=== PATIENT | female | born 1965 | race Two or more races ===

== ENCOUNTER → 2021-02-27 08:56 | Outpatient (REF) | payer MEDICAID, SELFPAY ==
--- NOTE | 2021-02-27 09:02 | CA_ITS ---
Transthoracic Echocardiogram Patient (Last, First, Middle): Sapna Juan I Gender: Female Date of : 1965 Age: 56 Procedure Date: 02/27/2021 Procedure Type: Transthoracic Echocardiogram Location: OP Height: 152.4 cm Weight: 66.68 kg BSA: 1.64 m2 Heart Rate: bpm BP: 130 / 80 mmHg Technical Assistance Consultant: DSG Referring MD: Yaz Marie NP Symptoms: acantholytic disorder. htn,cerebral infarction Study Quality: Good ECG Rhythm: Sinus Conclusions: - The left ventricular systolic function is normal. The visually estimated ejection fraction is between 55-60%. - There is mild mitral annular calcification. - No obvious valvular pathology seen on this study. Findings Left Ventricle Normal left ventricular cavity size. There is normal left ventricular wall thickness. The left ventricular systolic function is normal. The visually estimated ejection fraction is between 55-60%. There is no evidence of regional wall motion abnormalities. E/E prime ratio is between 8 and 15 consistent with indeterminate filling pressures. Evidence suggests grade I (mild) diastolic dysfunction. Right Ventricle Normal right ventricular cavity size and systolic function. Atria The left atrium is normal in size. The right atrium is normal in size. Aortic Valve There is a normal trileaflet aortic valve. There is no aortic valve stenosis. There is no aortic valve regurgitation. Mitral Valve There is mild mitral annular calcification. There is trace mitral valve regurgitation. There is no mitral valve stenosis. Pulmonic Valve The pulmonic valve was not well visualized. Tricuspid Valve Normal tricuspid valve structure. There is trace tricuspid valve regurgitation. The pulmonary artery systolic pressure is normal. Great Vessels The aortic annulus, sinuses of valsalva, asc aorta, and aortic arch are normal in size. Venous The inferior vena cava is normal in size and collapses greater than 50% with inspiration. Pericardium/Pleural There is no evidence of pericardial effusion. Prior Study Comparison No prior study available for comparison. Recommendations, Care & Conclusions No obvious valvular pathology seen on this study. Measurements 2D Linear Measurements IVSd: 0.85 0.6-0.9/0.6-1.0 cm LVIDd: 4.21 3.9-5.3/4.2-5.9 cm LVIDd Index: 2.57 2.4-3.2/2.2-3.1 cm/m2 LVIDs: 3.00 2.0-3.6 cm LVPWd: 0.83 0.7-1.1 cm Ao Root: 2.80 2.1-3.5 cm LA Diam: 3.20 2.7-3.8/3.0-4.0 cm LAIDs Index: 1.95 1.5-2.3 cm/m2 LV Mass: 134.37 67-162/88-224 g LV Mass Index: 81.93 43-95/49-115 g/m2 LVOT Diam: 1.80 3.0+(-)1.3 cm 2D Systolic Function EF 4C: 62.00 >55% EF 2C: 50.40 >55% EF BiP: 58.60 >55% Mitral Valve MV Pk E: 0.75 MV PK A: 0.72 MV Decel Time: 242.00 E/A: 1.00 E'Lateral: 7.72 E'Medial: 6.42 E/E' Med: 11.60 E/E' Lat: 9.70 PHT: 71.00 MVA PHT: 3.10 Decel Cidra: 3.08 Aortic Valve AoV Pk Elian: 1.18 AoV Pk Grad: 6.00 LVOT LVOT Pk Elian: 0.98 LVOT Mn Elian: 0.69 LVOT VTI: 0.23 LVOT Pk Grad: 4.00 LVOT Mn Grad: 2.00 LVOT Diam: 1.80 LVOT Area: 2.54 Diastolic Function MV Pk E: 0.75 MV Pk A: 0.72 E/A: 1.00 E'Medial: 6.42 E/E' Med: 11.60 E' Laterial: 7.72 E/E' Lat: 9.70 Tricuspid Valve TR Pk Elian: 2.48 TR Pk Grad: 25.00 RA Press: 3.00 RVSP: 28.00 Great Vessels Aorta Ao Root-2D: 2.80 2.0-3.7 cm Ao Asc: 3.20 2.1-3.4 cm Updated in Other Vendor System with Status of Final London Schultz MD electronically signed on 02/27/2021 12:34:56 PM with status of Final
== END ==
LOC: HO.CARD 08:56
PROVIDERS: PCP Registered Nurse; Visit Provider Registered Nurse
DX: L11.9 Acantholytic disorder, unspecified (principal); E78.5 Hyperlipidemia, unspecified; I10 Essential (primary) hypertension; I63.9 Cerebral infarction, unspecified
CPT/HCPCS: 93306

== ENCOUNTER 2021-11-22 12:43 | Outpatient (REF) | payer MEDICAID, SELFPAY ==
--- NOTE | ~2021-11-22 | MM_ITS ---
EXAMINATION: MM SCREENING DIGITAL BREAST TOMOSYNTHESIS, BILATERAL CLINICAL INFORMATION: Screening. Asymptomatic. The lifetime risk of breast cancer based on the Tyrer-Cuzick Model is 8%. COMPARISON: Mammography: 06/05/2018, 05/26/2017, 05/06/2016 TECHNIQUE: Digital breast tomosynthesis is performed in both the craniocaudal and mediolateral oblique views along with computer-aided detection (CAD). Synthesized 2D images are generated from the tomosynthesis. FINDINGS: The breasts are almost entirely fatty (ACR BI-RADS breast composition Category a). Background stromal markings are stable. No developing density. There are no significant masses, abnormal calcifications, or other abnormalities. The axilla and skin contours are unremarkable. MM/MM tomosynthesis screening BI IMPRESSION: No mammographic evidence of malignancy. ASSESSMENT: BI-RADS 1: Negative RECOMMENDATION: Routine annual mammography screening. This patient's information was entered into a reminder system with a target due date for their next mammogram.
== END 2021-11-22 12:44 | disposition home or self-care (01) ==
LOC: HO.MAMMO 12:43
PROVIDERS: PCP Nurse Practitioner Primary Care; Visit Provider Nurse Practitioner Primary Care
DX: Z12.31 Encounter for screening mammogram for malignant neoplasm of breast (principal)
CPT/HCPCS: 77063; 77067

== ENCOUNTER → 2022-01-17 10:42 | Outpatient (REF) | payer MEDICAID, SELFPAY ==
--- NOTE | 2022-01-17 10:46 | HM_ITS ---
Patient is a 57-year-old female. INDICATION FOR THE TEST: Tachycardia. REQUESTING PROVIDER: Sandra Currie N.P. FINDINGS: 1. The patient was monitored with event monitor from 01/17/2022, to 02/16/2022, for a total period of 30 days. 2. The presented strip shows sinus bradycardia with heart rate ranging from 38 beats per minute to 53 beats per minute. There are no episodes of tachycardia noted. 3. There were no arrhythmias noted. 4. The patient did not report any events on this study. CONCLUSION: Event monitor is remarkable for: 1. Sinus bradycardia. 2. No significant arrhythmias. 3. No patient reported events. Rick York MD NRS/MODL / [id number]
== END ==
LOC: HO.CARD 10:42
PROVIDERS: PCP Nurse Practitioner Primary Care; Visit Provider Nurse Practitioner Primary Care
DX: R00.0 Tachycardia, unspecified (principal)
CPT/HCPCS: 93270

== ENCOUNTER 2023-01-09 10:14 | Outpatient (REF) | payer MEDICAID, SELFPAY ==
--- NOTE | ~2023-01-09 | MM_ITS ---
EXAMINATION: MM SCREENING DIGITAL BREAST TOMOSYNTHESIS, BILATERAL CLINICAL INFORMATION: Screening. Asymptomatic. The lifetime risk of breast cancer based on the Tyrer-Cuzick Model is 7.0%. COMPARISON: Mammography: November 22, 2021 and studies dating back to July 12, 2013 TECHNIQUE: Digital breast tomosynthesis is performed in both the craniocaudal and mediolateral oblique views along with computer-aided detection (CAD). Synthesized 2D images are generated from the tomosynthesis. FINDINGS: There are scattered areas of fibroglandular density (ACR BI-RADS breast composition Category b). There are no significant masses, abnormal calcifications, or other abnormalities. MM/MM tomosynthesis screening BI IMPRESSION: No significant changes from prior exam. ASSESSMENT: BI-RADS 1: Negative RECOMMENDATION: Routine annual mammography screening. This patient's information was entered into a reminder system with a target due date for their next mammogram.
== END 2023-01-09 10:15 | disposition home or self-care (01) ==
LOC: HO.MAMMO 10:14
PROVIDERS: PCP Nurse Practitioner Primary Care; Visit Provider Nurse Practitioner Primary Care
DX: Z12.31 Encounter for screening mammogram for malignant neoplasm of breast (principal)
CPT/HCPCS: 77063; 77067

== ENCOUNTER 2023-03-12 09:48 | Outpatient (REF) | payer MEDICAID, SELFPAY | END 2023-03-12 09:49 | disposition home or self-care (01) | LOC: HO.NEURO 09:48 | PROVIDERS: PCP Nurse Practitioner Primary Care; Visit Provider Registered Nurse | DX: M79.2 Neuralgia and neuritis, unspecified (principal) | CPT/HCPCS: 95885; 95911 ==

== ENCOUNTER 2023-07-17 14:01 | Outpatient (AMB) | payer MEDICAID, SELFPAY ==
--- NOTE | 2023-07-17 14:09 | HO.NEPHOV_ITS ---
HPI HPI Comments History of Present Illness Details Middle-aged woman with hypertension. Blood pressure has been difficult to control. She had a Doppler ultrasound which showed possible renal artery stenosis with beaded appearance suggestive of fibromuscular dysplasia. Referred for evaluation of hypertension Renal function has been stable [facility] Medical History (Updated 07/17/23 @ 14:38 by Robbie Marley MD) Constipation Menorrhagia Heartburn Microscopic hematuria Hemorrhoids HTN (hypertension) Anemia GERD (gastroesophageal reflux disease) Vital Signs 07/17/23 14:15 Height 5 ft Weight 145 lb 4 oz BMI 28.4 BP 152/82 H Blood Pressure Location Lt brachial Position Sitting Pulse 57 Pulse Source Pulse Oximeter Pulse Oximetry (%) 96 Oxygen Delivery Method Room Air Physical Exam Vital Signs: Last Vital Signs Pulse 57 07/17/23 14:15 BP 152/82 H 07/17/23 14:15 Pulse Ox 96 07/17/23 14:15 Oxygen Delivery Method Room Air 07/17/23 14:15 BMI result Body Mass Index 28.4 Const General: comfortable Nutritional Appearance: well nourished Orientation/consciousness: patient oriented x3 HEENT Head: No normal to inspection Mouth: moist mucous membranes Neck Neck: Yes supple and Yes no JVD Resp Auscultation: clear to auscultation bilaterally, no rales and rub present Cardio Jugular venous distension: no JVD Palpation: no palpable S3 and no palpable S4 Heart sounds: no rubs GI Palpation (GI): Soft to palpation and nontender Percussion: No Fluid wave present General: Yes no CVA tenderness Back/Spine/Pelvis Back: no CVA tenderness Skin General skin exam: no rashes or lesions noted Neuro General: patient oriented x3 Extrem General: Yes no pedal edema and No clubbing Results Reviewed Results Reviewed: Renal function was normal Assessment & Plan Assessment & Plan (1) HTN (hypertension): Code(s): I10 - Essential (primary) hypertension (2) Renal artery stenosis: Code(s): I70.1 - Atherosclerosis of renal artery Plan Middle-aged woman with hypertension. Renal function stable. Doppler ultrasonogram revealed a possible renal artery stenosis with beaded appearance. This raises the suspicion for fibromuscular dysplasia. Plan Blood pressure is suboptimal. I will switch lisinopril 40 mg to lisinopril HCTZ 20/12.51 a day and titrate dose as needed. Keep her on a low-sodium diet. I will refer to intervention Radiology for renal angiogram with possible angioplasty. Orders: Referrals Interventional Radiology Referral I70.1 - Atherosclerosis of renal artery Medications: New lisinopril-hydrochlorothiazide 20-12.5 mg 1 tab PO DAILY 30 tabs 3RF Coding Level of Care Code New Pt Level 4 (44161) Diagnoses HTN (hypertension) I10 Renal artery stenosis I70.1
[2023-07-17 14:15] VITALS: BP 152/82; PULSE 57; O2SAT 96; BMI 28.4
== END 2023-07-17 14:35 | disposition home or self-care (01) ==
PROVIDERS: PCP Nurse Practitioner Primary Care; Visit Provider Internal Medicine Hypertension Specialist
DX: I10 Essential (primary) hypertension (principal); I70.1 Atherosclerosis of renal artery
CPT/HCPCS: 99203

== ENCOUNTER → 2023-07-17 14:01 | Outpatient (BNVA) | payer MEDICAID, SELFPAY | PROVIDERS: PCP Nurse Practitioner Primary Care; Visit Provider Internal Medicine Hypertension Specialist | DX: I70.1 Atherosclerosis of renal artery (principal); I10 Essential (primary) hypertension | CPT/HCPCS: 99202 ==

== ENCOUNTER 2023-07-22 12:39 | Outpatient (REF) | payer MEDICAID, SELFPAY ==
[2023-07-22 13:19] LABS: MANUAL DIFF FLAG NO
[2023-07-22 13:51] LABS: Basophils Percent Auto 0.3 % (0-2); Eosinophils Absolute Auto 0.2 X10*3/uL (0.0-0.4); Eosinophils Percent Auto 2.9 % (0-4); Hematocrit 42.7 % (37.0-47.0); Hemoglobin 13.7 g/dl (12.0-16.0); Imm Gran Abs Auto 0.02 X10*3/uL (0.00-0.03); Imm Gran Pct Auto 0.3 % (0.0-0.4); Lymphocytes Absolute Auto 2.3 X10*3/uL (1.2-4.9); Lymphocytes Percent Auto 37.9 % (20-40); Mean Corpuscular HGB Conc 32.1 g/dl (31.0-35.0); Mean Corpuscular Hemoglobin 27.2 pg (27.0-33.0); Mean Corpuscular Volume 84.9 fL (80.0-98.0); Mean Platelet Volume 11.9 fL (9.4-12.3); Monocytes Absolute Auto 0.4 X10*3/uL (0.1-1.2); Monocytes Percent Auto 6.2 % (2-11); Neutrophils Absolute Auto 3.1 x10*3/uL (2.0-8.3); Neutrophils Percent Auto 52.4 % (45-73); Platelet Count 250 X10*3/uL (160-400); Red Blood Count 5.03 X10*6/uL (4.20-5.50); Red Cell Distribution Width 12.9 % (11.0-16.0); White Blood Count 5.9 X10*3/uL (4.8-10.8)
[2023-07-22 14:47] LABS: TSH reflex Free T4 2.26 uIU/mL (0.32-4.0)
[2023-07-22 14:54] LABS: Vitamin B12 398 pg/mL (200-900)
== END 2023-07-22 12:40 | disposition home or self-care (01) ==
LOC: HO.HHCL 12:39
PROVIDERS: Visit Provider Nurse Practitioner Primary Care
DX: M79.2 Neuralgia and neuritis, unspecified (principal); E53.8 Deficiency of other specified B group vitamins
CPT/HCPCS: 36415; 82607; 84443; 85025

== ENCOUNTER 2023-08-04 16:27 | Outpatient (REF) | payer MEDICAID, SELFPAY ==
[2023-08-08 03:28] LABS: HPV mRNA E6/E7 rflx Not Detected (Not Detected)
== END 2023-08-04 16:28 | disposition home or self-care (01) ==
LOC: HO.HHCLNP 16:27
PROVIDERS: Visit Provider Advanced Practice Midwife
DX: Z12.4 Encounter for screening for malignant neoplasm of cervix (principal); Z11.51 Encounter for screening for human papillomavirus (HPV)
CPT/HCPCS: 87624; 88142

== ENCOUNTER 2023-08-21 13:09 | Outpatient (AMB) | payer MEDICAID, SELFPAY ==
[2023-08-21 13:16] VITALS: BP 115/76; PULSE 57; O2SAT 100; BMI 28.3
--- NOTE | 2023-08-21 13:16 | HO.NEPHOV_ITS ---
HPI HPI Comments History of Present Illness Details Middle-aged woman with hypertension. Blood pressure has been difficult to control. She had a Doppler ultrasound which showed possible renal artery stenosis with beaded appearance suggestive of fibromuscular dysplasia. Referred for evaluation of hypertension Renal function has been stable BP better controlled after adding HCTZ [facility] Medical History Constipation Menorrhagia Heartburn Microscopic hematuria Hemorrhoids HTN (hypertension) Anemia GERD (gastroesophageal reflux disease) Vital Signs 08/21/23 13:16 Height 5 ft Weight 145 lb BMI 28.3 BP 115/76 Blood Pressure Location Lt brachial Position Sitting Pulse 57 Pulse Source Pulse Oximeter Pulse Oximetry (%) 100 Oxygen Delivery Method Room Air Physical Exam Vital Signs: Last Vital Signs Pulse 57 08/21/23 13:16 BP 115/76 08/21/23 13:16 Pulse Ox 100 08/21/23 13:16 Oxygen Delivery Method Room Air 08/21/23 13:16 BMI result Body Mass Index 28.3 Assessment & Plan Assessment & Plan (1) HTN (hypertension): Code(s): I10 - Essential (primary) hypertension (2) Renal artery stenosis: Code(s): I70.1 - Atherosclerosis of renal artery Plan Middle-aged woman with hypertension. Renal function stable. Doppler ultrasonogram revealed a possible renal artery stenosis with beaded appearance. This raises the suspicion for fibromuscular dysplasia. Plan Blood pressure is well controlled I will KEEP lisinopril HCTZ 27/08.51 a day Keep her on a low-sodium diet. I will re-refer to intervention Radiology for renal angiogram with possible angioplasty. Orders: Orders Electrolytes Today I10 - Essential (primary) hypertension Calcium Today I10 - Essential (primary) hypertension Blood Urea Nitrogen Today I10 - Essential (primary) hypertension Creatinine Today I10 - Essential (primary) hypertension Referrals Interventional Radiology Referral I70.1 - Atherosclerosis of renal artery Coding Level of Care Code Est Pt Level 4 (07358) Diagnoses HTN (hypertension) I10 Renal artery stenosis I70.1 Results Reviewed Nephrology Results: Hgb 13.7 g/dl (12.0-16.0) 07/22/23 WBC 5.9 X10*3/uL (4.8-10.8) 07/22/23 Plt Count 250 X10*3/uL (160-400) 07/22/23
== END 2023-08-21 13:32 | disposition home or self-care (01) ==
PROVIDERS: PCP Nurse Practitioner Primary Care; Visit Provider Internal Medicine Hypertension Specialist
DX: I10 Essential (primary) hypertension (principal); I70.1 Atherosclerosis of renal artery
CPT/HCPCS: 99214

== ENCOUNTER → 2023-08-21 13:09 | Outpatient (BNVA) | payer MEDICAID, SELFPAY | PROVIDERS: PCP Nurse Practitioner Primary Care; Visit Provider Internal Medicine Hypertension Specialist | DX: I10 Essential (primary) hypertension (principal); I70.1 Atherosclerosis of renal artery | CPT/HCPCS: 99212 ==

== ENCOUNTER 2023-09-18 12:42 | Outpatient (REF) | payer MEDICAID, SELFPAY ==
--- NOTE | ~2023-09-18 | MM_ITS ---
EXAMINATION: BONE DENSITOMETRY CLINICAL INDICATION: Screening. COMPARISON: This is the patient's baseline examination. TECHNIQUE: Using a [employer] DXA System (software version: 13.1) manufactured by [employer], dual-energy x-ray absorptiometry was performed of the lumbar spine and left hip. The images are of good technical quality. Summary results are attached. FINDINGS: LEFT FEMUR, NECK: BMD 0.779 g/cm2, Z-score -0.8, T-score -1.9, osteopenia. LEFT FEMUR, TOTAL: BMD 0.952 g/cm2, Z-score 0.3, T-score -0.4, normal. AP SPINE L1-L4: BMD 1.247 g/cm2, Z-score 1.5, T-score 0.6, normal. IDENTIFIED RISK FACTORS: Menopause, history of fracture (adult), height loss, family history (parent hip fracture). HISTORY OF FRACTURE: Wrist. MEDICATIONS: None listed. MM/XR DEXA axial skeleton IMPRESSION: 1. DIAGNOSIS: Osteopenia based on the lowest T-score value of -1.9 in the femoral neck applying World Health Organization criteria. 2. 10-YEAR FRACTURE RISK PREDICTION, FRAX: Major osteoporotic fracture (clinical spine, forearm, hip or shoulder) 15.5%. Hip fracture 1.0%. 3. Treatment Recommendations: NOF guidelines recommend consideration for treatment in postmenopausal women and men age 50 and older presenting with the following: -A hip or vertebral (clinical or morphometric) fracture. -T-score less than or equal to -2.5 at the femoral neck or spine after appropriate evaluation to exclude secondary causes. -Low bone mass at the hip or spine and a 10-year fracture probability by FRAX of greater than or equal to 3% for hip fracture or greater than or equal to 20% for major osteoporotic fracture based on the [place] adapted WHO algorithm. 4. Other Recommendations: All treatment decisions require clinical judgment and consideration of individual patient factors, including patient preferences, comorbidities, previous drug use, risk factors not captured in the FRAX model (e.g. frailty, falls, vitamin D deficiency, increased bone turnover, interval significant decline in bone density) and possible under or overestimation of fracture risk by FRAX. Additional medical evaluation for secondary cause of low bone mineral density may be appropriate. FUTURE SCAN RECOMMENDATION: People with diagnosed cases of osteoporosis or at high risk for fracture should have regular bone mineral density tests. For patients eligible for Medicare, routine testing is allowed once every 2 years. The testing frequency can be increased to one year for patients who have rapidly progressing disease, those who are receiving or discontinuing medical therapy to restore bone mass, or have additional risk factors.
== END 2023-09-18 12:43 | disposition home or self-care (01) ==
LOC: HO.MAMMO 12:42
PROVIDERS: PCP Nurse Practitioner Primary Care; Visit Provider Advanced Practice Midwife
DX: Z13.820 Encounter for screening for osteoporosis (principal); Z78.0 Asymptomatic menopausal state
CPT/HCPCS: 77080

== ENCOUNTER 2023-11-06 13:14 | Outpatient (AMB) | payer MEDICAID, SELFPAY ==
[2023-11-06 13:26] VITALS: BP 160/100; PULSE 57; O2SAT 97; BMI 28.1
--- NOTE | 2023-11-06 13:26 | HO.NEPHOV ---
HPI HPI Comments History of Present Illness Details Middle-aged woman with hypertension. Blood pressure has been difficult to control. She had a Doppler ultrasound which showed possible renal artery stenosis with beaded appearance suggestive of fibromuscular dysplasia. Referred for evaluation of hypertension Renal function has been stable Renal arteries evaluated by Endovascular surgery and NO ADAM was noted [facility] Medical History Constipation Menorrhagia Heartburn Microscopic hematuria Hemorrhoids HTN (hypertension) Anemia GERD (gastroesophageal reflux disease) Social History (Updated 11/06/23 @ 13:30 by Shayla Louis) Alcohol intake: never Use of substances other than those prescribed or required for medical reasons: No Vital Signs 11/06/23 13:26 Height 5 ft Weight 144 lb BMI 28.1 BP 160/100 H Blood Pressure Location Rt brachial Position Sitting Pulse 57 Pulse Source Pulse Oximeter Pulse Oximetry (%) 97 Oxygen Delivery Method Room Air Physical Exam Vital Signs: Last Vital Signs Pulse 57 11/06/23 13:26 BP 160/100 H 11/06/23 13:26 Pulse Ox 97 11/06/23 13:26 Oxygen Delivery Method Room Air 11/06/23 13:26 BMI result Body Mass Index 28.1 Const General: comfortable Nutritional Appearance: well nourished Orientation/consciousness: patient oriented x3 HEENT Head: No normal to inspection Mouth: moist mucous membranes Neck Neck: Yes supple and Yes no JVD Resp Auscultation: clear to auscultation bilaterally, no rales and rub present Cardio Jugular venous distension: no JVD Palpation: no palpable S3 and no palpable S4 Heart sounds: no rubs GI Palpation (GI): Soft to palpation and nontender Percussion: No Fluid wave present General: Yes no CVA tenderness Back/Spine/Pelvis Back: no CVA tenderness Skin General skin exam: no rashes or lesions noted Neuro General: patient oriented x3 Extrem General: Yes no pedal edema and No clubbing Assessment & Plan Assessment & Plan (1) HTN (hypertension): Code(s): I10 - Essential (primary) hypertension (2) Renal artery stenosis: Code(s): I70.1 - Atherosclerosis of renal artery Plan Middle-aged woman with hypertension. Renal function stable. Doppler ultrasonogram revealed a possible renal artery stenosis with beaded appearance. No ADAM by doppler done by ENdovascualr surgery Plan Blood pressure is well controlled Lisinopril 20/25 QD Keep her on a low-sodium diet. Orders: Orders Basic Metabolic Panel 4 Months I10 - Essential (primary) hypertension Medications: New lisinopril-hydrochlorothiazide 20-25 mg 1 tab PO DAILY 30 tabs 5RF Discontinued lisinopril-hydrochlorothiazide 20-12.5 mg Discontinued Reason: Doctor's Order 1 tab PO DAILY 30 tabs 3RF Coding Level of Care Code Est Pt Level 4 (94241) Diagnoses HTN (hypertension) I10 Renal artery stenosis I70.1 Results Reviewed Nephrology Results: Hgb 13.7 g/dl (12.0-16.0) 07/22/23 WBC 5.9 X10*3/uL (4.8-10.8) 07/22/23 Plt Count 250 X10*3/uL (160-400) 07/22/23
== END 2023-11-06 13:48 | disposition home or self-care (01) ==
PROVIDERS: PCP Nurse Practitioner Primary Care; Visit Provider Internal Medicine Hypertension Specialist
DX: I10 Essential (primary) hypertension (principal); I70.1 Atherosclerosis of renal artery
CPT/HCPCS: 99214

== ENCOUNTER → 2023-11-06 13:14 | Outpatient (BNVA) | payer MEDICAID, SELFPAY | PROVIDERS: PCP Nurse Practitioner Primary Care; Visit Provider Internal Medicine Hypertension Specialist | DX: I10 Essential (primary) hypertension (principal); I70.1 Atherosclerosis of renal artery | CPT/HCPCS: 99212 ==

== ENCOUNTER 2024-01-13 10:25 | Outpatient (REF) | payer MEDICAID, SELFPAY ==
--- NOTE | ~2024-01-13 | MM_ITS ---
EXAMINATION: MM SCREENING DIGITAL BREAST TOMOSYNTHESIS, BILATERAL CLINICAL INFORMATION: Screening. Asymptomatic. COMPARISON: Mammography: 01/09/2023, 11/22/2021, and dating back to 2012. TECHNIQUE: Digital breast tomosynthesis is performed in both the craniocaudal and mediolateral oblique views along with computer-aided detection (CAD). Synthesized 2D images are generated from the tomosynthesis. FINDINGS: There are scattered areas of fibroglandular density (ACR BI-RADS breast composition Category b). There are no suspicious masses, suspicious grouped calcifications, or areas of architectural distortion in either breast. The parenchymal pattern is stable from prior exams. No skin or axillary abnormality. MM/MM tomosynthesis screening BI IMPRESSION: No mammographic evidence of malignancy. ASSESSMENT: BI-RADS BI-RADS 1 - Negative RECOMMENDATION: Routine annual mammography screening. 1 year F/U This examination should not preclude the clinical evaluation of a suspicious palpable abnormality. This patient's information was entered into a reminder system with a target due date for their next mammogram.
== END 2024-01-13 10:26 | disposition home or self-care (01) ==
LOC: HO.MAMMO 10:25
PROVIDERS: PCP Nurse Practitioner Primary Care; Visit Provider Nurse Practitioner Primary Care
DX: Z12.31 Encounter for screening mammogram for malignant neoplasm of breast (principal)
CPT/HCPCS: 77063; 77067

== ENCOUNTER → 2024-01-13 11:00 | Outpatient (BNV) | payer MEDICAID, SELFPAY | PROVIDERS: PCP Nurse Practitioner Primary Care; Visit Provider Radiology Diagnostic Radiology | DX: Z12.31 Encounter for screening mammogram for malignant neoplasm of breast (principal) | CPT/HCPCS: 77063; 77067 ==

== ENCOUNTER 2024-02-27 10:45 | Outpatient (REF) | payer MEDICAID, SELFPAY ==
[2024-02-27 12:30] LABS: Anion Gap 10 (12-20); Blood Urea Nitrogen 21 mg/dL (9-16); Calcium 10.6 mg/dL (8.4-10.2); Carbon Dioxide 33 mmol/L (22-29); Chloride 109 mmol/L (96-108); Estimated Glomerular Filt Rate > 60; Glucose Random 88 mg/dL (60-115); Potassium 3.4 mmol/L (3.3-5.1); Sodium 149 mmol/L (135-145)
== END 2024-02-27 10:46 | disposition home or self-care (01) ==
LOC: HO.LAB 10:45
PROVIDERS: PCP Nurse Practitioner Primary Care; Visit Provider Internal Medicine Hypertension Specialist
DX: I10 Essential (primary) hypertension (principal)
CPT/HCPCS: 36415; 80048

== ENCOUNTER 2024-03-08 11:28 | Outpatient (AMB) | payer MEDICAID, SELFPAY ==
[2024-03-08 11:38] VITALS: BP 112/78; PULSE 51; BMI 27.7
--- NOTE | 2024-03-08 11:38 | HO.NEPHOV ---
Vital Signs 03/08/24 11:38 Height 5 ft Weight 142 lb BMI 27.7 BP 112/78 Blood Pressure Location Rt brachial Position Sitting Pulse 51 Pulse Source Pulse Oximeter Intake Visit Reasons: R/S 03/01/2024/ LVM Curriculum Development Manager Required: Yes Curriculum Development Manager Services: Curriculum Development Manager Present Curriculum Development Manager Name: Nico Accompanied by: Self / Same As Patient Allergies No Known Allergies Allergy (Verified 03/08/24 11:41) Medication List - Last Reconciled 03/08/24 by Robbie Marley MD albuterol sulfate 90 mcg/actuation (ProAir HFA) 2 puffs inhalation Q4-6H PRN aspirin 81 mg PO DAILY atenolol 50 mg PO BID ciclopirox 8% topical BEDTIME cyanocobalamin (vitamin B-12) 1,000 mcg PO DAILY ferrous sulfate (FeroSul) 325 mg PO DAILY fluticasone propionate 50 mcg/actuation 1 spray intranasal BID hydroxyzine HCl 25 mg PO QID PRN lanolin [id number].pet-ceres (Minerin Creme topical) appl topical BID lisinopril-hydrochlorothiazide 20-25 mg 1 tab PO DAILY loratadine (Allergy Relief (loratadine)) 10 mg PO DAILY metformin 500 mg PO BID omeprazole 20 mg PO DAILY triamcinolone acetonide 0.1% topical BID HPI Comments Details: Middle-aged woman with hypertension. Blood pressure has been difficult to control. She had a Doppler ultrasound which showed possible renal artery stenosis with beaded appearance suggestive of fibromuscular dysplasia. Referred for evaluation of hypertension Renal function has been stable Renal arteries evaluated by Endovascular surgery and NO ADAM was noted [facility] Medical History Constipation Menorrhagia Heartburn Microscopic hematuria Hemorrhoids HTN (hypertension) Anemia GERD (gastroesophageal reflux disease) Social History Alcohol intake: never Physical Exam Vital Signs: BMI result Body Mass Index 27.7 Results Reviewed Nephrology Results: Hgb 13.7 g/dl (12.0-16.0) 07/22/23 WBC 5.9 X10*3/uL (4.8-10.8) 07/22/23 Plt Count 250 X10*3/uL (160-400) 07/22/23 Sodium 149 mmol/L (135-145) H 02/27/24 Potassium 3.4 mmol/L (3.3-5.1) 02/27/24 Chloride 109 mmol/L (96-108) H 02/27/24 Carbon Dioxide 33 mmol/L (22-29) H 02/27/24 BUN 21 mg/dL (9-16) H 02/27/24 Creatinine 0.77 mg/dL (0.5-1.4) 02/27/24 Calcium 10.6 mg/dL (8.4-10.2) H 02/27/24 Assessment & Plan Assessment & Plan (1) HTN (hypertension): Code(s): I10 - Essential (primary) hypertension Category: Medical (2) Renal artery stenosis: Code(s): I70.1 - Atherosclerosis of renal artery Category: Medical Plan Middle-aged woman with hypertension. Renal function stable. Doppler ultrasonogram revealed a possible renal artery stenosis with beaded appearance. No ADAM by doppler done by Endovascualr surgery -Sep 2023 at [place] [facility] Plan Blood pressure is well controlled Lisinopril 20/25 QD Keep her on a low-sodium diet. No changes Medications: Refilled lisinopril-hydrochlorothiazide 20-25 mg 1 tab PO DAILY 90 tabs 3RF Coding Level of Care Code Est Pt Level 3 (03753) Diagnoses HTN (hypertension) I10 Renal artery stenosis I70.1
== END 2024-03-08 11:50 | disposition home or self-care (01) ==
PROVIDERS: PCP Nurse Practitioner Primary Care; Visit Provider Internal Medicine Hypertension Specialist
DX: I10 Essential (primary) hypertension (principal); I70.1 Atherosclerosis of renal artery
CPT/HCPCS: 99213

== ENCOUNTER → 2024-03-08 11:28 | Outpatient (BNVA) | payer MEDICAID, SELFPAY | PROVIDERS: PCP Nurse Practitioner Primary Care; Visit Provider Internal Medicine Hypertension Specialist | DX: I10 Essential (primary) hypertension (principal); I70.1 Atherosclerosis of renal artery | CPT/HCPCS: 99212 ==

== ENCOUNTER 2024-08-30 13:05 | Outpatient (AMB) | payer MEDICAID, SELFPAY ==
[2024-08-30 13:08] VITALS: BP 110/68; PULSE 60; O2SAT 95; BMI 27.7
--- NOTE | 2024-08-30 13:08 | HO.NEPHOV_ITS ---
Vital Signs 08/30/24 13:08 Height 5 ft Weight 142 lb BMI 27.7 BP 110/68 Blood Pressure Location Rt brachial Position Sitting Pulse 60 Pulse Source Pulse Oximeter Pulse Oximetry (%) 95 Oxygen Delivery Method Room Air Intake Visit Reasons: Hypertension/ Conf Curb Setter Helper Required: Yes Curb Setter Helper Name: Chely [id number] Accompanied by: Self / Same As Patient Allergies No Known Allergies Allergy (Verified 08/30/24 13:11) Medication List - Last Reconciled 08/30/24 by Robbie Marley MD albuterol sulfate 90 mcg/actuation (ProAir HFA) 2 puffs inhalation Q4-6H PRN aspirin 81 mg PO DAILY atenolol 50 mg PO BID bimatoprost 0.01% (Lumigan) 1 drp ophthalmic (eye) BEDTIME brimonidine 0.2% 1 drp ophthalmic (eye) BID ciclopirox 8% topical BEDTIME cyanocobalamin (vitamin B-12) 1,000 mcg PO DAILY dorzolamide 2% 1 drp ophthalmic (eye) TID ferrous sulfate (FeroSul) 325 mg PO DAILY fluticasone propionate 50 mcg/actuation 1 spray intranasal BID hydroxyzine HCl 25 mg PO QID PRN lanolin iwjujnb-yh-z.pet-ceres (Minerin Creme topical) appl topical BID lisinopril-hydrochlorothiazide 20-25 mg 1 tab PO DAILY loratadine (Allergy Relief (loratadine)) 10 mg PO DAILY metformin 500 mg PO BID netarsudil 0.02% (Rhopressa) 1 drp ophthalmic (eye) BEDTIME omeprazole 20 mg PO DAILY triamcinolone acetonide 0.1% topical BID HPI Comments Details: Middle-aged woman with hypertension. Blood pressure has been difficult to control. She had a Doppler ultrasound which showed possible renal artery stenosis with beaded appearance suggestive of fibromuscular dysplasia. Referred for evaluation of hypertension Renal function has been stable Renal arteries evaluated by Endovascular surgery and NO ADAM was noted [facility] Medical History Constipation Menorrhagia Heartburn Microscopic hematuria Hemorrhoids HTN (hypertension) Anemia GERD (gastroesophageal reflux disease) Social History Alcohol intake: never Physical Exam Vital Signs: Last Vital Signs Pulse 60 08/30/24 13:08 BP 110/68 08/30/24 13:08 Pulse Ox 95 08/30/24 13:08 Oxygen Delivery Method Room Air 08/30/24 13:08 BMI result Body Mass Index 27.7 Comfortable Neck supple no JVD. Lungs entry equal no rales. Heart S1-S2 heard no gallop or rub. Abdomen soft nontender. Neuro alert awake oriented. No asterixis. Extremities no edema. Results Reviewed Nephrology Results: Hgb 13.7 g/dl (12.0-16.0) 07/22/23 WBC 5.9 X10*3/uL (4.8-10.8) 07/22/23 Plt Count 250 X10*3/uL (160-400) 07/22/23 Sodium 149 mmol/L (135-145) H 02/27/24 Potassium 3.4 mmol/L (3.3-5.1) 02/27/24 Chloride 109 mmol/L (96-108) H 02/27/24 Carbon Dioxide 33 mmol/L (22-29) H 02/27/24 BUN 21 mg/dL (9-16) H 02/27/24 Creatinine 0.77 mg/dL (0.5-1.4) 02/27/24 Calcium 10.6 mg/dL (8.4-10.2) H 02/27/24 Assessment & Plan Assessment & Plan (1) HTN (hypertension): Code(s): I10 - Essential (primary) hypertension Category: Medical (2) Renal artery stenosis: Code(s): I70.1 - Atherosclerosis of renal artery Category: Medical Plan Middle-aged woman with hypertension. Renal function stable. Doppler ultrasonogram revealed a possible renal artery stenosis with beaded appearance. No ADAM by doppler done by Endovascualr surgery -Sep 2023 at [facility] Mild hypernatremia due to free water deficit Plan Blood pressure is well controlled Lisinopril HCT20/25 QD The use of HCTZ should help corect hypernatremia Increase PO Water intake Keep her on a low-sodium diet. No changes Orders: Orders Basic Metabolic Panel Today I10 - Essential (primary) hypertension Medications: New atenolol 50 mg PO BID 180 tabs 0RF Refilled lisinopril-hydrochlorothiazide 20-25 mg 1 tab PO DAILY 90 tabs 3RF Coding Level of Care Code Est Pt Level 4 (51663) Diagnoses HTN (hypertension) I10 Renal artery stenosis I70.1
== END 2024-08-30 13:23 | disposition home or self-care (01) ==
PROVIDERS: PCP Nurse Practitioner Primary Care; Visit Provider Internal Medicine Hypertension Specialist
DX: I10 Essential (primary) hypertension (principal); I70.1 Atherosclerosis of renal artery
CPT/HCPCS: 99214

== ENCOUNTER → 2024-08-30 13:05 | Outpatient (BNVA) | payer MEDICAID, SELFPAY | PROVIDERS: PCP Nurse Practitioner Primary Care; Visit Provider Internal Medicine Hypertension Specialist | DX: I10 Essential (primary) hypertension (principal); I70.1 Atherosclerosis of renal artery | CPT/HCPCS: 99212 ==

== ENCOUNTER 2024-09-17 11:03 | Outpatient (REF) | payer MEDICAID, SELFPAY ==
[2024-09-17 13:12] LABS: Anion Gap 10 (12-20); Blood Urea Nitrogen 16 mg/dL (9-16); Calcium 10.1 mg/dL (8.4-10.2); Carbon Dioxide 32 mmol/L (22-29); Chloride 109 mmol/L (96-108); Estimated Glomerular Filt Rate > 60; Glucose Random 118 mg/dL (60-115); Potassium 3.5 mmol/L (3.3-5.1); Sodium 147 mmol/L (135-145)
[2024-09-17 13:38] LABS: Anion Gap 10 (12-20); Blood Urea Nitrogen 15 mg/dL (9-16); Calcium 9.7 mg/dL (8.4-10.2); Carbon Dioxide 32 mmol/L (22-29); Chloride 110 mmol/L (96-108); Estimated Glomerular Filt Rate > 60; Glucose Random 114 mg/dL (60-115); Potassium 3.5 mmol/L (3.3-5.1); Sodium 147 mmol/L (135-145)
[2024-09-17 13:43] LABS: Creatinine Urine 81.38 mg/dL; Microalbum/Creatinine Ratio Ur 13.5 ug/mg cr (<30)
[2024-09-17 13:51] LABS: Parathyroid Hormone Intact 120.8 pg/mL (8.7-77.1)
== END 2024-09-17 11:04 | disposition home or self-care (01) ==
LOC: HO.HHCL 11:03
PROVIDERS: Nurse Practitioner Primary Care; Visit Provider Internal Medicine Hypertension Specialist
DX: I10 Essential (primary) hypertension (principal); E21.3 Hyperparathyroidism, unspecified; E11.59 Type 2 diabetes mellitus with other circulatory complications; I15.2 Hypertension secondary to endocrine disorders; E87.0 Hyperosmolality and hypernatremia
CPT/HCPCS: 36415; 80048; 82043; 82570; 83970

== ENCOUNTER 2024-12-30 11:45 | Outpatient (AMB) | payer MEDICAID, SELFPAY ==
[2024-12-30 11:52] VITALS: BP 122/82; PULSE 71; O2SAT 97; BMI 27.6
--- NOTE | 2024-12-30 11:52 | HO.NEPHOV ---
Vital Signs 12/30/24 11:52 Height 5 ft Weight 141 lb 8 oz BMI 27.6 BP 122/82 Blood Pressure Location Rt brachial Position Sitting Pulse 71 Pulse Source Pulse Oximeter Pulse Oximetry (%) 97 Oxygen Delivery Method Room Air Intake Visit Reasons: Hypertension/ Conf Management Services Technician Required: Yes Management Services Technician Language: Hand Ii Cutter Name: Vidya([id number]) Allergies No Known Allergies Allergy (Verified 12/30/24 11:54) Medication List - Last Reconciled 12/30/24 by Robbie Marley MD albuterol sulfate 90 mcg/actuation (ProAir HFA) 2 puffs inhalation Q4-6H PRN aspirin 81 mg PO DAILY atenolol 50 mg PO BID bimatoprost 0.01% (Lumigan) 1 drp ophthalmic (eye) BEDTIME brimonidine 0.2% 1 drp ophthalmic (eye) BID ciclopirox 8% topical BEDTIME cyanocobalamin (vitamin B-12) 1,000 mcg PO DAILY dorzolamide 2% 1 drp ophthalmic (eye) TID ferrous sulfate (FeroSul) 325 mg PO DAILY fluticasone propionate 50 mcg/actuation 1 spray intranasal BID hydroxyzine HCl 25 mg PO QID PRN lanolin ysovjaj-sp-t.pet-ceres (Minerin Creme topical) appl topical BID lisinopril-hydrochlorothiazide 20-25 mg 1 tab PO DAILY loratadine (Allergy Relief (loratadine)) 10 mg PO DAILY metformin 500 mg PO BID netarsudil 0.02% (Rhopressa) 1 drp ophthalmic (eye) BEDTIME omeprazole 20 mg PO DAILY triamcinolone acetonide 0.1% topical BID HPI Comments Details: Middle-aged woman with hypertension. Blood pressure has been difficult to control. She had a Doppler ultrasound which showed possible renal artery stenosis with beaded appearance suggestive of fibromuscular dysplasia. Referred for evaluation of hypertension Renal function has been stable Renal arteries evaluated by Endovascular surgery and NO ADAM was noted 12/30/24 Overall doing well. Home BP was low this and did not take meds. [facility] Medical History Constipation Menorrhagia Heartburn Microscopic hematuria Hemorrhoids HTN (hypertension) Anemia GERD (gastroesophageal reflux disease) Social History Alcohol intake: never Physical Exam Vital Signs: Last Vital Signs Pulse 71 12/30/24 11:52 BP 122/82 12/30/24 11:52 Pulse Ox 97 12/30/24 11:52 Oxygen Delivery Method Room Air 12/30/24 11:52 BMI result Body Mass Index 27.6 Comfortable Neck supple no JVD. Lungs entry equal no rales. Heart S1-S2 heard no gallop or rub. Abdomen soft nontender. Neuro alert awake oriented. No asterixis. Extremities no edema. Results Reviewed Nephrology Results: Sodium 147 mmol/L (135-145) H 09/17/24 Potassium 3.5 mmol/L (3.3-5.1) 09/17/24 Chloride 110 mmol/L (96-108) H 09/17/24 Carbon Dioxide 32 mmol/L (22-29) H 09/17/24 BUN 15 mg/dL (9-16) 09/17/24 Creatinine 0.83 mg/dL (0.5-1.4) 09/17/24 Calcium 9.7 mg/dL (8.4-10.2) 09/17/24 PTH Intact 120.8 pg/mL (8.7-77.1) H 09/17/24 Urine Creatinine 81.38 mg/dL 09/17/24 Assessment & Plan Assessment & Plan (1) HTN (hypertension): Code(s): I10 - Essential (primary) hypertension Category: Medical (2) Renal artery stenosis: Code(s): I70.1 - Atherosclerosis of renal artery Category: Medical (3) Hypernatremia: Code(s): E87.0 - Hyperosmolality and hypernatremia Category: Medical Plan Middle-aged woman with hypertension. Renal function stable. Doppler ultrasonogram revealed a possible renal artery stenosis with beaded appearance. No ADAM by doppler done by Endovascular surgery -Sep 2023 at [facility] Mild hypernatremia due to free water deficit Plan Blood pressure is low, I will STOP Lisinopril -HCT 20/25 Start HCTZ 25 mg daily The use of HCTZ should help corect hypernatremia Increase PO Water intake Keep her on a low-sodium diet. Orders: Orders Basic Metabolic Panel Today E87.0 - Hyperosmolality and hypernatremia, I10 - Essential (primary) hypertension, I70.1 - Atherosclerosis of renal artery UA and rflx microscopic Today E87.0 - Hyperosmolality and hypernatremia, I10 - Essential (primary) hypertension, I70.1 - Atherosclerosis of renal artery Osmolality Urine Today E87.0 - Hyperosmolality and hypernatremia, I10 - Essential (primary) hypertension, I70.1 - Atherosclerosis of renal artery Medications: New hydrochlorothiazide 25 mg PO DAILY 90 tabs 1RF Discontinued lisinopril-hydrochlorothiazide 20-25 mg Discontinued Reason: Doctor's Order 1 tab PO DAILY 90 tabs 3RF Coding Level of Care Code Est Pt Level 4 (92683) Diagnoses HTN (hypertension) I10 Renal artery stenosis I70.1 Hypernatremia E87.0
--- OUTSIDE RECORDS SUMMARY | 2024-12-30 14:08 | XMS_ITS | Encounter Summary ---
Author Organization [employer] Address [address] [facility] [address] [place] [address] Care Team Providers Care Clinic Clerk Name Role Phone Sandra Currie Primary Care Provider [phone] Encounter Details Date Type Department Care Team (Late st Contact Info) Description 10/03/2022 Orders Only [facility] MED & PEDS [address] [place] [address] Susannah Burnett LPN Social History Tobacco Use Types Packs/Day Years Used Date Smoking Tobacco: Never Assessed Comments Unknown Sex and Gender Information Value Date Recorded Sex Assigned at Female 07/08/2022 10:16 AM EDT Legal Sex Female 10:16 AM EDT Gender Identity Female 07/08/2022 10:16 AM EDT Sexual Orientation Straight 07/08/2022 10 :16 AM EDT documented as of this encounter Plan of Treatment Upcoming Encounters Date Type Department Care Team (Late st Contact Info) Description 03/22/2025 2:00 PM EDT Office Visit [facility] OPTOMETRY [address] [place] [address] Sravan, Susan, OD [address] [place] [address] 03/28/2025 11:15 AM EDT Office Visit [facility] MEDICINE [address] [place] [address] Sandra Currie ANP [address] [place] [address] documented as of this encounter Visit Diagnoses Not on filedocumented in this encounter Care Teams Clinic Clerk Relationship Specialty Start Date End Date Sandra Currie ANP [address] [place] [phone] PCP - General Family Medicine 04/30/21 documented as of this encounter
--- OUTSIDE RECORDS SUMMARY | 2024-12-30 14:08 | XMS_ITS | Encounter Summary ---
Author Organization [employer] Address [address] [facility] [address] [facility] [address] [place] [address] Care Team Providers Care Master Naval Parachutist Name Role Phone Sandra Currie Primary Care Provider [phone] Encounter Details Date Type Department Care Team (Late st Contact Info) Description 02/10/2024 Abstract [facility] MEDICINE [address] [place], [place] [phone] Sandra Currie ANP [address] [place], [place] [phone] Social History Tobacco Use Types Packs/Day Years Used Date Smoking Tobacco: Never Passive Smoke Exposure: Never Smokeless Tobacco: Never Alcohol Use Standard Drinks/Week Comments Never 0 (1 standard drink = 0.6 oz pur e alcohol) Housing Stability Answer Date Recorded What is your housing situation today? I do not have housing (Staying with others, in a hotel, in a care home, living outside on the street, on a beach, in a car, or in a park 11/17/[address] you li ve. Do you have problems with any of the following? None of the above 11/17/2023 Food Insecurity Answer Date Recorded Within the past 12 months, y ou worried that your food would run out before you got money to buy more: Sometimes True 2023 Within the past 12 months,th e food you bought just didn't last and you didn't have enough money to get more: Sometimes True 11/17/2023 Transportation Answer Date Recorded In the past 12 months, has l ack of transportation kept you from medical appts, meetings, work or from getting things needed for daily living? No 06/23/2023 Utilities Answer Date Recorded In the past 12 months, has t he electric, gas, oil or water [employer] threatened to shut off services in your home? No 06/23/2023 Depression Answer Date Recorded Patient Health Questionnaire-2 Score 0 01/30/2023 Comments No Sex and Gender Information Value Date Recorded Sex Assigned at Female 07/08/2022 10:16 AM EDT Legal Sex Female 10:16 AM EDT Gender Identity Female 07/08/2022 10:16 AM EDT Sexual Orientation Straight 07/08/2022 10 :16 AM EDT documented as of this encounter Plan of Treatment Upcoming Encounters Date Type Department Care Team (Late st Contact Info) Description 03/22/2025 2:00 PM EDT Office Visit [facility] OPTOMETRY [address] [place] [address] Sravan, Susan, OD [address] [place] [address] 03/28/2025 11:15 AM EDT Office Visit [facility] MEDICINE [address] [place] [address] Sandra Currie ANP [address] [place] [address] documented as of this encounter Procedures Procedure Name Priority Date/Time Associated Diagnosis Comments MAMMOGRAPHY Routine 02/10/2024 10:56 AM EDT documented in this encounter Results * Mammography (02/10/2024 10:56 AM EDT) Mammogram BIRADS 1 Normal, Abnormal, BIRADS 1 , BIRADS 2 Comment:1 year follow up Anatomical Region Laterality Modality Other us Historical Provider HEALTH MAINTENANCE Final Result documented in this encounter Visit Diagnoses Not on filedocumented in this encounter Care Teams Master Naval Parachutist Relationship Specialty Start Date End Date Sandra Currie ANP [address] [place] [address] PCP - General Family Medicine 04/30/21 documented as of this encounter
--- OUTSIDE RECORDS SUMMARY | 2024-12-30 14:08 | XMS_ITS | Clinical Summary ---
Author Organization [employer] Address [address] [facility] [address] [place] [address] Care Team Providers Care Sexual Assault Nurse Name Role Phone Sandra Currie Primary Care Provider Allergies No known active allergies Medications ergocalciferol (Vitamin D-2) 1.25 MG (09470 UT) capsule take 1 capsule by oral route every week 022 Active cyanocobalamin (Vitamin B-12) 1000 MCG tabletIndications :Vitamin deficiency TAKE 1 TABLET BY MOUTH EVERY DAY 90 tablet 1 023 Active Rhopressa 0.02 % solution INSTILL 1 DROP IN BOTH EYES AT BEDTIME 023 Active dorzolamide-timol ol (Cosopt) 2-0.5 % ophthalmic solution INSTILL 1 DROP IN EACH EYE EVERY 12 HOURS 023 Active brimonidine (AlphaGAN P) 0.2 % ophthalmic solution INSTILL 1 DROP IN BOTH EYES EVERY 12 HOURS 023 Active olopatadine (Pataday) 0.2 % ophthalmic solution Administer 1 drop into affected eye(s) in the morning. 2.5 mL 024 Active hydrOXYzine HCl (Atarax) 25 MG tablet TAKE 1 TABLET BY MOUTH FOUR TIMES DAILY NEEDED FOR ANXIETY 120 tablet 1 024 Active lisinopril-hydroC HLOROthiazide 20-25 MG tablet Take 1 tablet by mouth Once per day. 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 60 each 024 Active Alcohol Swabs padsIndications:T ype 2 diabetes mellitus with hyperglycemia, unspecified whether corporate planning manager insulin use ([facility]) 1 each if needed (to clean skin). 100 each Active aspirin 81 MG chewable tabletIndications :Healthcare maintenance Take 1 tablet daily 90 tablet 3 024 Active atenolol (Tenormin) 50 MG tabletIndications :Hypertension associated with diabetes ([facility]) TAKE 1 TABLET BY MOUTH TWICE DAILY 180 tablet 1 024 Active omeprazole (PriLOSEC) [address] capsule TAKE 1 CAPSULE BY MOUTH EVERY DAY BEFORE A MEAL 90 capsule 1 024 Active Skin Protectants, Misc. (Minerin Creme) creamIndications: Dry skin Apply to skin as needed twice daily 454 g 2 025 Active nortriptyline (Pamelor) 25 MG capsuleIndication s:Neuropathic pain of lower extremity Take 1 capsule (25 mg) by mouth at bedtime. 90 capsule 025 2025 Active fluticasone (Flonase) 50 MCG/ACT nasal sprayIndications: Non-seasonal allergic rhinitis due to other allergic trigger 1 spray into each nostril as needed once daily. Shake gently. Before first use, prime pump. After use, clean tip and replace cap. 48 g 025 Active loratadine (Claritin) 10 MG tabletIndications :Allergic conjunctivitis of both eyes TAKE 1 TABLET BY MOUTH EVERY DAY IN THE MORNING 90 tablet 1 025 Active atorvastatin (Lipitor) 40 MG tabletIndications :Hypertension associated with diabetes ([facility]) TAKE 1 TABLET BY MOUTH ONCE DAILY 90 tablet 3 025 Active Ferrous Sulfate (iron) 325 (65 Fe) MG tabletIndications :Iron deficiency anemia, unspecified iron deficiency anemia type TAKE 1 TABLET BY MOUTH EVERY DAY WITH ORANGE JUICE OR VITAMINA C 90 tablet 3 025 Active metFORMIN XR (Glucophage-XR) 500 MG 24 hr tabletIndications :Type 2 diabetes mellitus with hyperglycemia, unspecified whether half-way insulin use ([facility]) TAKE 1 TABLET BY MOUTH TWICE DAILY WITH FOOD 180 tablet 3 025 Active ferrous sulfate (FeroSul) 325 (65 Fe) MG tabletIndications :Iron deficiency anemia, unspecified iron deficiency anemia type Take 1 tab daily with OJ or vitamin C 90 tablet 3 024 2024 Discontinued metFORMIN XR (Glucophage-XR) 500 MG 24 hr tabletIndications :Type 2 diabetes mellitus with hyperglycemia, unspecified whether half-way insulin use ([facility]) TAKE 1 TABLET BY MOUTH TWICE DAILY WITH FOOD 180 tablet 3 024 2024 Discontinued atorvastatin (Lipitor) 40 MG tabletIndications :Hypertension associated with diabetes ([facility]) Take 1 tablet (40 mg) by mouth Once per day. 90 tablet 3 024 2024 Discontinued loratadine (Claritin) 10 MG tabletIndications :Allergic conjunctivitis of both eyes TAKE 1 TABLET BY MOUTH EVERY MORNING 90 tablet 1 024 2024 Discontinued nortriptyline (Pamelor) 25 MG capsuleIndication s:Neuropathic pain of lower extremity Take 1 capsule (25 mg) by mouth at bedtime. 90 capsule 025 2024 Discontinued(R eorder (will not trigger notification to Pharmacy)) fluticasone (Flonase) 50 MCG/ACT nasal sprayIndications: Non-seasonal allergic rhinitis due to other allergic trigger 1 spray into each nostril as needed once daily. Shake gently. Before first use, prime pump. After use, clean tip and replace cap. 48 g 025 2024 Discontinued(R eorder (will not trigger notification to Pharmacy)) Active Problems Problem Noted Date Diagnosed Date Advanced open-angle glaucoma, severe stage 12/14 Overview (12/15/2023): w/ sx poor vision and visual field defects. She is followed closely by Dr. Edge and is on multiple medications. Eye exam [facility] 06/2023, no retinopathy. Hypertension associated with diabetes 12/15/2023 Peripheral axonal neuropathy 07/22/2023 Overview (07/22/2023): EMG 03/12/23 Myopia with presbyopia of both eyes 07/18/2023 Imbalance due to old stroke 01/30/2023 Overview (01/30/2023): subtle chronic bilateral cerebellar lacunar infarcts as seen on MRI 10/19/2020 to which her imbalance was attributed History of lacunar cerebrovascular accident 01/07 Overview (01/30/2023): subtle chronic bilateral cerebellar lacunar infarcts as seen on MRI 10/19/2020 On statin, ASA Optimize DM & HTN Fatigue 01/29/2023 Mass of oral cavity 01/29/2023 Tinnitus 01/29/2023 Hyperparathyroidism 01/23/2023 Kidney stone 01/23/2023 Neuropathic pain of lower extremity 10/25/2022 Assessment & Plan (10/25/2022 5:01 PM EST): EMG ordered to RO Periferal neuropathy or lumbar radiculopathy. If negative possible referral to neurology? 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 and that her blood pressure was fine, her Lisinopril was recently increased Plan: I asked pt to start checking BP at home and come with PCPs RN to review log book and discuss adjusting regimen if BP persistently elevated Follow up with PCP's RN in 1 week and with PCP within 2-4 weeks Microscopic hematuria 05/20/2012 Anemia 05/20/2012 Hemorrhoids 05/20/2012 Resolved Problems Problem Noted Date Diagnosed Date Resolved Date Acute conjunctivitis of both eyes 07/03/2023 03/18/2024 Assessment & Plan (07/03/2023 11:10 AM EDT): Pt with c/o new onset of bilateral eye crustiness and mild discharge as well as redness for several days, no other associated symptoms Etiology, bacterial vs allergic. On today s exam there is conjunctival injection, but no active discharge although pt reports intermittent discharge and morning crustiness. Plan:Erythromycin ointment. Pt already on antihistaminic. Asked pt to come back if no improvement or worsening. 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 Date Type Department Care Team Description 12/27/2024 Refill [facility] MEDICINE [address] [place] [phone] Sandra Currie ANP Allergic conjunctivitis of both eyes; Hypertension associated with diabetes ([facility]); Iron deficiency anemia, unspecified iron deficiency anemia type; Type 2 diabetes mellitus with hyperglycemia, unspecified whether corporate planning manager insulin use ([facility]) 12/14/2024 Telephone [facility] MEDICINE [address] [place], [place] [phone] Sandra Currie ANP March recall 12/10/2024 Refill [facility] PEDS [address] [place], [place] [phone] Sandra Currie ANP Neuropathic pain of lower extremity; Non-seasonal allergic rhinitis due to other allergic trigger 12/06/2024 Telephone [facility] OPTOMETRY [address] [place], [place] [phone] Susan Hinson, NEMO 11/19/2024 Population Health Risk Score [facility] () Department [address] [place] [phone] Provider, Population Health Generic from Last 3 Months Immunizations Name Administration Dates Next Due INFLUENZA INJECTABLE QUADRIV ALANT CCIIV4 MDCK Multi-dose vial 07/19/2019 Influenza injectable quadriv alent IIV4 with preservative 06/11/2018,09/18/2017,05/31/2016,2014 Influenza injectable quadriv alent preservative free 07/22/2023,07/03/2021 Influenza, IIV3, injectable 07/11/2014, 1 Influenza, Split (incl. ryanne fied surface antigen) 05/27/2013,05/20/2012 Influenza, seasonal, injecta ble, preservative free 09/17/2024 Pneumococcal Conjugate PCV 20 12/15/2023 TD (adult), 2 Lf tetanus tox oid, preservative free, adsorbed 09/02/2002 Tdap 09/17/2024,02/10/2014 Zoster, Recombinant 05/05/2020,07/19/2019 Family History Medical History Relation Name Comments Diabetes Brother Hyperlipidemia Mother Diabetes Sister Thyroid disease Sister Relation Name Status Comments Brother Mother Sister Social History Tobacco Use Types Packs/Day Years Used Date Smoking Tobacco: Never Passive Smoke Exposure: Never Smokeless Tobacco: Never Tobacco Cessation:Counseling Given: Not Answered Alcohol Use Standard Drinks/Week Comments Never 0 (1 standard drink = 0.6 oz pur e alcohol) Depression Answer Date Recorded Patient Health Questionnaire-9 Score 5 09/17/2024 Patient Health Questionnaire-9 Score 5 09/17/2024 Last PHQ-9: Questionnaire Data Not on file 0 09/17/2024 Housing Stability Answer Date Recorded What is your housing situation today? I do not have housing (Staying with others, in a hotel, in a group home, living outside on the street, on [...] t he electric, gas, oil or water company threatened to shut off services in your home? No 06/23/2023 Depression Answer Date Recorded Patient Health Questionnaire-2 Score 1 09/17/2024 Internet Access Answer Date Recorded Internet Access Q1 Yes 05/10/2024 Internet Access Q2 Not on file 05/10/2024 Comments No Sex and Gender Information Value Date Recorded Sex Assigned at Female 07/08/2022 10:16 AM EDT Legal Sex Female 10:16 AM EDT Gender Identity Female 07/08/2022 10:16 AM EDT Sexual Orientation Straight 07/08/2022 10 :16 AM EDT Last Filed Vital Signs Vital Sign Reading Time Taken Comments Blood Pressure 105/64 09/17/2024 11:21 AM EST Pulse 64 09/17/2024 11:21 AM EST Temperature 36.1 ??C (97 ??F) 09/17/2024 11:21 AM EST Respiratory Rate 20 09/17/2024 11:21 AM EST Oxygen Saturation 98% 09/17/2024 11:21 AM EST Inhaled Oxygen Concentration - - Weight 64.9 kg (143 lb) 09/17/2024 11:21 AM EST Height 152.4 cm (5') 09/17/2024 11:21 AM EST Body Mass Index 27.93 09/17/2024 11:21 AM EST Plan of Treatment Upcoming Encounters Date Type Department Care Team (Late st Contact Info) Description 03/22/2025 2:00 PM EDT Office Visit [facility] OPTOMETRY [address] [place] [address] Sravan, Susan, OD [address] [place] [address] 03/28/2025 11:15 AM EDT Office Visit [facility] MEDICINE [address] [place] [phone] Sandra Currie, ANP [address] [place] [address] Health Maintenance Due Date Last Done Comments CT Colonography 1965 FIT DNA/Cologuard 1965 FIT 1965 FOBT 1965 Sigmoidoscopy 1965 Hepatitis B Vaccines (1 of 3 - 19+ 3-dose series) 1985 Dental Prophylaxis 07/23/2018 01/19/2018, 1 09/20/2016, 01/14/2017, Additional history exists Dental Oral Exam 08/23/2018 02/20/2018, , 01/14/2017, Additional history exists Dental X-Ray: Bitewings 02/21/2019 02/21/20 18, 01/14/2017, 03/29/2016 Lipid Panel 10/02/2022 10/02/2021, 04/08, 11/08/2020, Additional history exists Dental X-Ray: Full Mouth 04/08/2023 04/07/2020, 03/09 COVID-19 Vaccine ( season) 2024 10/09/2021, 01/27/2021, 12/30/2020 SDOH Screening 11/16/2024 11/17/2023 Diabetes: Hemoglobin A1C 12/16/2024 025, 03/18/2024, 12/15/2023, Additional history exists Colonoscopy 02/06/2025 02/06/2022 Colorectal Cancer Screening 02/06/2025 Mammogram 02/09/2025 02/10/2024, 03/2024, 01/09/2023, Additional history exists Diabetes: Foot Exam 03/18/2025 03/18/2024, 03/18/2024, 03/18/2024, Additional history exists Eye Exam 06/30/2025 06/30/2023, 06/09, 06/30/2023, Additional history exists Alcohol/Substance Use Screening 09/17/2025 09/17/2024 Depression Screening 09/17/2025 09/17/2024, 09/17/19 Diabetes: Urine Protein Screening 09/17/2025 09/17/2024, 10/02/2021, 03/03/2020 Tobacco Screening 09/17/2025 09/17/2024 Cervical Cancer Screening 08/04/2028 HPV/Cotest 08/04/2028 08/04/2023, 08/02/2020 Pap Smear 08/04/2028 08/04/2023, 08/02/2020 DTaP/Tdap/Td Vaccines (3 - Td or Tdap) 09/17/2034 09/17/2024, 02/10/2014, 09/02/2002 RSV Patients and Patients Aged 60 years or older (1 - 1-dose 75+ series) 2041 Zoster Vaccines Completed 05/05/2020, 07/19/2019 HIV Screening Completed 04/24/2021 Hepatitis C Screening Completed 04/24/2021 Pneumococcal Vaccine: 50+ Years Completed 12/15/2023 Influenza Vaccine Completed 09/17/2024, , 07/03/2021, Additional history exists HIB Vaccines Aged Out No longer eligi ble based on patient's age to complete this topic HPV Vaccines Aged Out No longer eligi ble based on patient's age to complete this topic Hepatitis A Vaccines Aged Out No long er eligible based on patient's age to complete this topic IPV Vaccines Aged Out No longer eligi ble based on patient's age to complete this topic Meningococcal Vaccine Aged Out No cmaden srini eligible based on patient's age to complete this topic RSV under 20 months Aged Out No longe r eligible based on patient's age to complete this topic Rotavirus Vaccines Aged Out No longer eligible based on patient's age to complete this topic Procedures Procedure Name Priority Date/Time Associated Diagnosis Comments POCT GLYCATED HEMOGLOBIN, TOTAL Routine 09/17/2024 11:33 AM EST Type 2 diabetes mellitus with diabetic polyneuropathy, without long-term current use of insulin ([facility]) ALBUMIN, RANDOM URINE W/CREATININE Routine 09/17/2024 11:06 AM EST Hypertension associated with diabetes (CMS/HCC) (CMS/HCC) MAMMOGRAPHY Routine 02/10/2024 10:56 AM EDT HPV MRNA E6/E7 REFLEX TO HPV 16, 18/45 Routine 08/04/2023 10:37 AM EST PAP SMEAR Routine 08/04/2023 10:37 AM EST COLONOSCOPY Routine 02/06/2022 LIPID PANEL, STANDARD Routine 10/02/2021 1:25 PM EST ZZZ HISTORICAL HEPATITIS C AB W/REFL TO HCV RNA, QN, PCR Routine 04/24/2021 10:45 AM EDT HIV 1/2 ANTIGEN/ANTIBODY, FOURTH GENERATION W/RFL Routine 04/24/2021 10:45 AM EDT PANORAMIC RADIOGRAPHIC IMAGE Routine 04/07/2020 12:00 AM EDT BITEWINGS - 4 RADIOGRAPHIC IMAGES Routine 02/20/2018 12:00 AM EDT PERIODIC ORAL EVALUATION - ESTABLISHED PATIENT Routine 02/20/2018 12:00 AM EDT PROPHYLAXIS - ADULT Routine 01/19/2018 1 2:00 AM EDT from Last 3 Months or Most Recently Relevant to Health Maintenance Results * (ABNORMAL) POCT HGB A1C (09/17/2024 11:33 AM EST) Hemoglobin A1C 6.4(A) 4.0 - 6.0 % QC Media Lot # [id number] Lot# Expiration Date ,738 Blood 09/17/2024 11:3 3 AM EST Sadnra Currie ANP POINT OF CARE TEST ENTER/EDIT OR DERABLES Final Result * Albumin, Random Urine W/Creatinine (09/17/2024 11:06 AM EST) Creatinine, Urine 81.38 mg/dL [facility] Microalbumin Urine 11.0 mg/L [facility] Microalbum Creatinine Ratio Ur 13.5 <30 ug/mg cr [facility] Comment:Albumin/Creatinine R atio Reference Ranges: Normal: < 30 ug/mg creatinine Microalbuminuria: 30 - 300 ug/mg creatinineClinical Albuminuria: > 300 ug/mg creatinine Urine (Urine, Random) 09/17/2024 11:06 AM EST 09/17/2024 12:58 PM EST us Sandra Currie ANP LAB URINE ORDERABLES Final Resul t [facility] [address] [place] [phone] * Mammography (02/10/2024 10:56 AM EDT) Mammogram BIRADS 1 Normal, Abnormal, BIRADS 1 , BIRADS 2 Comment:1 year follow up Anatomical Region Laterality Modality Other us Historical Provider HEALTH MAINTENANCE Final Result * HPV mRNA E6/E7 w/Reflex to HPV Genotypes 16, 18/45 (08/04/2023 10:37 AM EST) HPV nRNA E6/E7 Not Detected Not Detected [facility] Comment:Methodology: Transcr iption-Mediated AmplificationThis assay detects E6/E7 viral messenger RNA (mRNA) from 14high-risk HPV types (16,18,31,33,35,39,45,51,52,56,58,59,66,68).Cervical sources are required for HPV testing.If a vaginal source from a patient who has had atotal hysterectomy with removal of cervix wassubmitted, please contact the testing laboratoryfor alternative testing options.For additional information, please refer tohttp://education.Oesia/faq/YRU882u8(This link if provided for information/educational purposes only.)THIS TEST WAS PERFORMED AT:[employer] [phone] STILES MD HPV mRNA E6/E7 [facility] HPV 16 RNA [facility] HPV 18/45 RNA [facility] 08/04/2023 10:3 7 AM EST 08/05/2023 11:40 AM EST Kelly Hidalgo [facility] CYTOLOGY ORDERABLES F inal Result [facility] [address] [place] [phone] * Pap Smear (08/04/2023 10:37 AM EST) 08/04/2023 10:3 7 AM EST 08/05/2023 11:40 AM EST Narrative [facility] - 08/14/2023 4:13 PM EST ----- ------- Name: Sapna Juan I ? Age/Sex: 58/F ? : 1965 Unit#: [id number] ?? Attend Dr: KELLY HIDALGO CNM ?Re08/04/23 ?Status: DEP REF ? [facility] ? Disch: ? ----- ------- SPEC : [id number] ?RECD: 08/05/23 ? STATUS: ??SOUT ? REQ NUM: [id number] ? JOHAN: 08/04/23-1037 ? SUBM DR: KELLY HIDALGO CNM ? ENTERED: ??08/05/239 ?SP TYPE: Pap Smr ?OTHR : ? ORDERED: ??Pap Smear ? Interpretation ?? Satisfactory for evaluation. ?? Mild inflammation. ?? Negative for intraepithelial lesion or malignancy. ?HPV mRNA E6/E7: ?NOT DETECTED ? This assay detects E6/E7 viral messenger RNA (mRNA) from 14 high-risk HPV types (16, 18, ?? 31, 33, 35, 39, 45, 51, 52, 56, 58, 59, 66, 68) ?? HPV testing performed by [employer] [facility], [place], [place]. ??See reference laboratory ?? portion of the EMR for entire report. ?Clinical Information LMP: Postmenopausal Previous PAP test: 2020, WNL ? Material Received ?? ThinPrep-Cervical ----- ------- Signed (signature on file) NICK Sena (ASCP) 08/14/23 1613 ? ----- ------- ? END OF REPORT ? us Kelly Hidalgo [facility] CYTOLOGY ORDERABLES F inal Result [facility] [address] [place] [phone] * Hm Colonoscopy (02/06/2022) Colonoscopy Normal Normal Historical Provider HEALTH MAINTENANCE Final Result * (ABNORMAL) LIPID PANEL, STANDARD (10/02/2021 1:25 PM EST) Chol/HDLC Ratio 4.3 <5.0 (calc) [facility] Cholesterol, Total 181 <200 mg/dL [facility] HDL Cholesterol 42(L) > OR = 50 mg/dL [facility] LDL Cholesterol 105(H) mg/dL (calc) [facility] Comment: Reference range: <100 ?? Desirable range <100 mg/dL for primary prevention; ?? <70 mg/dL for patients with CHD or diabetic patients ?? with > or = 2 CHD risk factors. ?? LDL-C is now calculated using the Golden-Morgan ?? calculation, which is a validated novel method providing ?? better accuracy than the Friedewald equation in the ?? estimation of LDL-C. ?? Golden SS et al. LILIA. 2013;310(19): 7532-5780 ?? (http://education.Navitell.Aptidata/faq/NXL149) Non-HDL Cholesterol 139(H) <130 mg/dL (calc) [facility] Comment: For patients with diabetes plus 1 major ASCVD risk ?? factor, treating to a non-HDL-C goal of <100 mg/dL ?? (LDL-C of <70 mg/dL) is considered a therapeutic ?? option. Triglycerides 216(H) <150 mg/dL [facility] Comment: ?? If a non-fasting specimen was collected, consider repeat triglyceride testing on a fasting specimen if clinically indicated. ?? Jone et al. J. of Clin. Lipidol. 2015;9:129-169. ?? 10/02/2021 1:25 PM EST Sandra Currie ANP LAB BLOOD ORDERABLES Final Resul t Performing Organization Address [facility] Co de Phone Number [facility] [address] * HEPATITIS C AB W/REFL TO HCV RNA, QN, PCR (04/24/2021 10:45 AM EDT) HEPATITIS C ANTIBODY NON-REACT SHANITA NON-REACT SHANITA [facility] INDEX 0.03 <1.00 [facility] Comment: ?? HCV antibody was non-reactive. There is no laboratory ?? evidence of HCV infection. ?? In most cases, no further action is required. However, if recent HCV exposure is suspected, a test for HCV RNA (test code 93148) is suggested. ?? For additional information please refer to http://Phoenix Books.Oesia/faq/WBW02q4 (This link is being provided for informational/ educational purposes only.) ?? 04/24/2021 10:4 5 AM EDT Chely Null MD HISTORICAL/NON ORDERA BLE LABS Final Result Performing Organization Address [facility] de Phone Number [facility] [address] * HIV 1/2 ANTIGEN/ANTIBODY,FOURTH GENERATION W/RFL (04/24/2021 10:45 AM EDT) HIV-1/2 ANTIGEN AND ANTIBODIES, 4TH GENERATION W/ REFLEX NON-REACT SHANITA NON-REACT SHANITA [facility] Comment: HIV-1 antigen and HIV-1/HIV-2 antibodies were not detected. There is no laboratory evidence of HIV infection. ?? PLEASE NOTE: This information has been disclosed to you from records whose confidentiality may be protected by state law. ??If your state requires such protection, then the state law prohibits you from making any further disclosure of the information without the specific written consent of the person to whom it pertains, or as otherwise permitted by law. A general authorization for the release of medical or other information is NOT sufficient for this purpose. ? For additional information please refer to http://Phoenix Books.Oesia/faq/UBK397 (This link is being provided for informational/ educational purposes only.) ? The performance of this assay has not been clinically validated in patients less than 2 years old. ?? 04/24/2021 10:4 5 AM EDT Chely Null MD LAB BLOOD ORDERABLES Final Result [facility] [address] from Last 3 Months or Most Recently Relevant to Health Maintenance Insurance [employer] [facility] C[employer] STAND ADULT Care Teams Sexual Assault Nurse Relationship Specialty Start Date End Date Sandra Currie ANP [address] [place] [phone] PCP - General Family Medicine 04/30/21
--- OUTSIDE RECORDS SUMMARY | 2024-12-30 14:08 | XMS_ITS | Clinical Summary ---
Author Organization [facility] [employer] [facility] Address [address] [place] [address] Care Team Providers Care Orbitread Operator Name Role Phone Unavailable Primary Care Provider Unavailabl e Social History Tobacco Use Types Packs/Day Years Used Date Smoking Tobacco: Never Assessed Comments Unknown Sex and Gender Information Value Date Recorded Sex Assigned at Not on file Legal Sex Female 5:07 AM EST Gender Identity Not on file Sexual Orientation Not on file Plan of Treatment Health Maintenance Due Date Last Done Comments Breast Cancer Screening 1966 DTaP,Tdap,and Td Vaccines (1 - Tdap) 1985 Hepatitis B Vaccines (1 of 3 - 19+ 3-dose series) 1985 Cervical Cancer Screening: P ap Smear 1987 Pneumococcal Vaccine: 50+ Ye ars (1 of 1 - PCV) 01/27/2016 Zoster Vaccines (1 of 2) 01/27/2016 COVID-19 Vaccine ( - 2023-2 5 season) 2024 Influenza Vaccine (Season Ended) 2025 HIB Vaccines Aged Out No longer eligi [...] on patient's age to complete this topic MMR Vaccines Aged Out No longer eligi ble based on patient's age to complete this topic Meningococcal ACWY Vaccine Aged Out N o longer eligible based on patient's age to complete this topic Meningococcal B Vaccine Aged Out No l onger eligible based on patient's age to complete this topic Pneumococcal Vaccine: Pediat rics (0 to 5 Years) and At-Risk Patients (6 to 64 Years) Aged Out No longer eligible b ased on patient's age to complete this topic RSV Immunization Patients Un jayro 20 months Aged Out No longer eligible b ased on patient's age to complete this topic Varicella Vaccines Aged Out No longer eligible based on patient's age to complete this topic
--- OUTSIDE RECORDS SUMMARY | 2024-12-30 14:08 | XMS_ITS | Encounter Summary ---
Author Organization [employer] Address [address] [facility] [address] [place] [address] Care Team Providers Care Photo Editor Name Role Phone Sandra Currie Primary Care Provider [phone] Reason for Visit * Reason Comments Med Refill Encounter Details Date Type Department Care Team ([facility] st Contact Info) Description 12/27/2024 Refill [facility] [address] [place], [place] [phone] Sandra Currie ANP [address] [place] [address] Allergic conjunctivitis of both eyes; Hypertension associated with diabetes (CMS/HCC); Iron deficiency anemia, unspecified iron deficiency anemia type; Type 2 diabetes mellitus with hyperglycemia, unspecified whether usp insulin use (CMS/[facility]) Social History Tobacco Use Types Packs/Day Years [...] with others, in a hotel, in a skilled nursing, living outside on the street, on a [...] Description 03/22/2025 2:00 PM EDT Office Visit [facility] OPT[facility] [address] [place] [address] Susan Hisnon, OD [address] [place] [address] 03/28/2025 11:15 AM EDT Office Visit [facility] [address] [place] [address] Sandra Currie, ABHISHEK [address] [place] [address] documented as of this encounter Visit Diagnoses Diagnosis Allergic conjunctivitis of both eyes Other chronic allergic conjunctivitis Hypertension associated with diabetes (CMS/HCC) Unspecified essential hypertension Iron deficiency anemia, unspecified iron deficiency anemia type Type 2 diabetes mellitus with hyperglycemia, 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
--- OUTSIDE RECORDS SUMMARY | 2024-12-30 14:08 | XMS_ITS | Encounter Summary ---
Author Organization [employer] Address [address] [facility] [address] [place] [address] Care Team Providers Care Communications Scientist Name Role Phone Sandra Currie Primary Care Provider [phone] Encounter Details Date Type Department Care Team (Late st Contact Info) Description 12/09/2022 Orders Only [facility] CHC MED & PEDS [address] [place] [address] Susannah Burnett LPN Social History Tobacco Use [...] Description 03/22/2025 2:00 PM EDT Office Visit [facility] OPTOMETRY [address] [place] [address] Sravan, Susan, OD [address] [place] [address] 03/28/2025 11:15 AM EDT Office Visit [facility] MEDICINE [address] [place] [address] Sandra Currie ANP [address] [place] [address] documented as of this encounter Visit Diagnoses Not on filedocumented in this encounter Care Teams Communications Scientist Relationship Specialty Start Date End Date Sandra Currie ANP [address] [place] [id number] PCP - General Family Medicine 04/30/21 documented as of this encounter
--- OUTSIDE RECORDS SUMMARY | 2024-12-30 14:08 | XMS_ITS | Encounter Summary ---
Author Organization [employer] Address [address] [facility] [address] [place] [address] Care Team Providers Care Welding Machine Assembler Name Role Phone Sandra Currie Primary Care Provider [phone] Encounter Details Date Type Department Care Team (Late Contact Info) Description 11/15/2022 Orders Only [facility] MEDICINE [address] [place] [address] Shikha Louis LPN Social History Tobacco Use Types Packs/Day Years Used Date Smoking Tobacco: Never Assessed Comments Unknown Sex and Gender Information Value Date Recorded Sex Assigned at Female 07/08/2022 10:16 AM EDT Legal Sex Female 10:16 AM EDT Gender Identity Female 07/08/2022 10:16 AM EDT Sexual Orientation Straight 07/08/2022 10 :16 AM EDT COVID-19 Exposure Response Date Recorded In the last 10 days, have yo u been in contact with someone who was confirmed or suspected to have Coronavirus/COVID-19? No / Unsure 11/01/2022 9:52 AM EST documented as of this encounter Plan of Treatment Upcoming Encounters Date Type Department Care Team (Late Contact Info) Description 03/22/2025 2:00 PM EDT Office Visit [facility] OPTOMETRY [address] [place] [address] SravanSusan borges, OD [address] [place] [address] 03/28/2025 11:15 AM EDT Office Visit [facility] MEDICINE [address] [place] [address] Sandra Currie ANP [address] [place] [address] documented as of this encounter Visit Diagnoses Not on filedocumented in this encounter Care Teams Welding Machine Assembler Relationship Specialty Start Date End Date Sandra Currie ANP [address] [place] [address] PCP - General Family Medicine 04/30/21 documented as of this encounter
--- OUTSIDE RECORDS SUMMARY | 2024-12-30 14:08 | XMS_ITS | Encounter Summary ---
Author Organization [employer] Address [address] [facility] [address] [place] [address] Care Team Providers Care Campaign Marketing Manager Name Role Phone Sandra Currie Primary Care Provider Encounter Details Date Type Department Care Team ([facility] Contact Info) Description 03/17/2023 Orders Only [facility] CHC MED & PEDS [address] [place], [place] [phone] Susannah Burnett LPN Social History Tobacco Use Types Packs/Day Years Used Date Smoking Tobacco: Never Smokeless Tobacco: Never Alcohol Use Standard Drinks/Week Comments Never 0 (1 standard drink = 0.6 oz pur e alcohol) Depression Answer Date Recorded Patient Health Questionnaire-2 Score 0 01/30/2023 Comments Unknown Sex and Gender Information Value [...] suspected to have Coronavirus/COVID-19? No / Unsure 02/25/2023 12:15 PM EDT documented as of this encounter Plan of Treatment Upcoming Encounters Date Type Department Care Team (Late Contact Info) Description 03/22/2025 2:00 PM EDT Office Visit [facility] OPTOMETRY [address] [place], [place] [phone] SravanSusan borges, OD [address] [place], [place] [phone] 03/28/2025 11:15 AM EDT Office Visit [facility] MEDICINE [address] [place] [address] Sandra Currie ANP [address] [place] [address] documented as of this encounter Visit Diagnoses Not on filedocumented in this encounter Care Teams Campaign Marketing Manager Relationship Specialty Start Date End Date Sandra Crurie ANP [address] [place] [address] PCP - General Family Medicine 04/30/21 documented as of this encounter
== END 2024-12-30 12:06 | disposition home or self-care (01) ==
LOC: HO.HKA 11:46
PROVIDERS: PCP Nurse Practitioner Primary Care; Visit Provider Internal Medicine Hypertension Specialist
DX: I10 Essential (primary) hypertension (principal); I70.1 Atherosclerosis of renal artery; E87.0 Hyperosmolality and hypernatremia
CPT/HCPCS: 99214

== ENCOUNTER → 2024-12-30 11:45 | Outpatient (BNVA) | payer MEDICAID, SELFPAY | PROVIDERS: PCP Nurse Practitioner Primary Care; Visit Provider Internal Medicine Hypertension Specialist | DX: I70.1 Atherosclerosis of renal artery (principal); I10 Essential (primary) hypertension; E87.0 Hyperosmolality and hypernatremia | CPT/HCPCS: 99212 ==

== ENCOUNTER 2025-02-08 11:06 | Outpatient (REF) | payer MEDICAID, SELFPAY ==
[2025-02-08 12:36] LABS: Anion Gap 12 (12-20); Blood Urea Nitrogen 15 mg/dL (9-16); Calcium 10.2 mg/dL (8.4-10.2); Carbon Dioxide 33 mmol/L (22-29); Chloride 104 mmol/L (96-108); Estimated Glomerular Filt Rate > 60; Glucose Random 134 mg/dL (60-115); Sodium 146 mmol/L (135-145)
[2025-02-08 12:39] LABS: Appearance Urine Clear; Color Urine Yellow; Glucose Urine UA Negative (Negative); Leukocyte Esterase Urine Large (3+) (Negative); Nitrite Urine Negative (Negative); PH 5.5 (5.0-9.0); UMIC TRIGGER UA YES; Urine Blood Trace (Negative); Urine Ketones Negative (Negative); Urine Protein Negative (Neg-Trace)
[2025-02-08 12:43] LABS: Bacteria Urine Trace (None Seen); Hyaline Casts Urine 0-2 /LPF (0-2); RBC Urine 0-2 /HPF (0-2); WBC Urine >50 /HPF (0-5)
[2025-02-08 12:47] LABS: Osmolality Urine 671 mosm/kg (373-1093)
--- OUTSIDE RECORDS SUMMARY | 2025-02-08 12:49 | XMS_ITS | Clinical Summary ---
Author Organization [employer] Address [address] [place] [address] Care Team Providers Care Carpet Cutter Name Role Phone Sandra Currie Primary Care Provider [phone] Allergies No known active allergies Medications ergocalciferol (Vitamin D-2) 1.25 MG (53954 UT) capsule take 1 capsule by oral route every week 10/18/19 22 Active cyanocobalamin (Vitamin B-12) 1000 MCG tabletIndications: Vitamin deficiency TAKE 1 TABLET BY MOUTH EVERY DAY 90 tablet 1 05/21/20 23 Active Rhopressa 0.02 % solution INSTILL 1 DROP IN BOTH EYES AT BEDTIME 06/04/20 23 Active dorzolamide-timolo l (Cosopt) 2-0.5 % ophthalmic solution INSTILL 1 DROP IN EACH EYE EVERY 12 HOURS 05/20/20 23 Active brimonidine (AlphaGAN P) 0.2 % ophthalmic solution INSTILL 1 DROP IN BOTH EYES EVERY 12 HOURS 06/27/20 23 Active olopatadine (Pataday) 0.2 % ophthalmic solution Administer 1 drop into affected eye(s) in the morning. 2.5 mL 12/09/19 24 Active hydrOXYzine HCl (Atarax) 25 MG tablet TAKE 1 TABLET BY MOUTH FOUR TIMES DAILY NEEDED FOR ANXIETY 120 tablet 1 01/29/20 24 Active lisinopril-hydroCH LOROthiazide 20-25 MG tablet Take 1 tablet by mouth Once per day. 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 60 each 03/18/20 24 Active Alcohol Swabs padsIndications:Ty pe 2 diabetes mellitus with hyperglycemia, unspecified whether supervisor long goods insulin use ([facility]) 1 each if needed (to clean skin). 100 each 03/18/20 24 Active aspirin 81 MG chewable tabletIndications: Healthcare maintenance Take 1 tablet daily 90 tablet 3 03/18/20 24 Active atenolol (Tenormin) 50 MG tabletIndications: Hypertension associated with diabetes ([facility]) TAKE 1 TABLET BY MOUTH TWICE DAILY 180 tablet 1 06/22/20 24 Active omeprazole (PriLOSEC) [address] capsule TAKE 1 CAPSULE BY MOUTH EVERY DAY BEFORE A MEAL 90 capsule 1 08/18/20 24 Active Skin Protectants, Misc. (Minerin Creme) creamIndications:D ry skin Apply to skin as needed twice daily 454 g 2 09/17/19 25 Active nortriptyline (Pamelor) 25 MG capsuleIndications :Neuropathic pain of lower extremity Take 1 capsule (25 mg) by mouth at bedtime. 90 capsule 12/11/19 25 026 Active fluticasone (Flonase) 50 MCG/ACT nasal sprayIndications:N on-seasonal allergic rhinitis due to other allergic trigger 1 spray into each nostril as needed once daily. Shake gently. Before first use, prime pump. After use, clean tip and replace cap. 48 g 12/11/19 25 Active loratadine (Claritin) 10 MG tabletIndications: Allergic conjunctivitis of both eyes TAKE 1 TABLET BY MOUTH EVERY DAY IN THE MORNING 90 tablet 1 12/30/19 25 Active atorvastatin (Lipitor) 40 MG tabletIndications: Hypertension associated with diabetes ([facility]) TAKE 1 TABLET BY MOUTH ONCE DAILY 90 tablet 3 12/30/19 25 Active Ferrous Sulfate (iron) 325 (65 Fe) MG tabletIndications: Iron deficiency anemia, unspecified iron deficiency anemia type TAKE 1 TABLET BY MOUTH EVERY DAY WITH ORANGE JUICE OR VITAMINA C 90 tablet 3 12/30/19 25 Active metFORMIN XR (Glucophage-XR) 500 MG 24 hr tabletIndications: Type 2 diabetes mellitus with hyperglycemia, unspecified whether longterm insulin use ([facility]) TAKE 1 TABLET BY MOUTH TWICE DAILY WITH FOOD 180 tablet 3 12/30/19 25 Active Active Problems Problem Noted Date Diagnosed Date Advanced open-angle glaucoma, severe stage 12/14 Overview (12/15/2023): w/ sx poor vision and visual field defects. She is followed closely by Dr. Edge and is on multiple medications. Eye exam [facility] 06/2023, no retinopathy. 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 and that her blood pressure was [...] On exam no eye tenderness, Pt has cognos lead Encounters Date Type Department Care Team Description 02/08/2025 Orders Only GENERIC EXTERNAL DATA DEPARTMENT Provider, Generic External Data 12/27/2024 Refill [facility] MEDICINE [address] [place] [address] Sandra Currie ANP Allergic conjunctivitis of both eyes; Hypertension associated with diabetes ([facility]); Iron deficiency anemia, unspecified iron deficiency anemia type; Type 2 diabetes mellitus with hyperglycemia, unspecified whether longterm insulin use ([facility]) 12/14/2024 Telephone [facility] MEDICINE [address] [place] [address] Sandra Currie ANP March recall 12/10/2024 Refill [facility] CHC MED & PEDS [address] [place] [address] Sandra Currie ANP Neuropathic pain of lower extremity; Non-seasonal allergic rhinitis due to other allergic trigger 12/06/2024 Telephone [facility] OPTOMETRY [address] [place] [address] Susan Hinson, OD 11/19/2024 Population Health Risk Score [facility] (C[facility]) Department [address] [phone] Provider, Population Health Generic from Last 3 Months Immunizations Immunization Administration Dates Next Due INFLUENZA INJECTABLE QUADRIV [...] with others, in a hotel, in a penitentiary, living outside on the street, on a [...] Description 03/22/2025 2:00 PM EDT Office Visit [facility] OPTOMETRY [address] [place] [address] Susan Hinson, OD [address] [place] [address] 03/28/2025 11:15 AM EDT Office Visit [facility] MEDICINE [address] [place] [address] Sandra Currie, ABHISHEK [address] [place] [address] Health Maintenance Due Date Last Done Comments CT Colonography 1965 FIT DNA/Cologuard 1965 FIT 1965 FOBT 1965 Sigmoidoscopy 1965 Disability Screening 1965 Hepatitis B Vaccines (1 of 3 [...] Colorectal Cancer Screening 02/06/2025 Mammogram 02/09/2025 02/10/2024, 0503/2024, 01/09/2023, Additional history exists Diabetes: Foot Exam 03/18/2025 03/18/2024, 03/18/2024, 03/18/2024, Additional history exists Eye Exam 06/30/2025 06/30/2023, 06/09, 06/30/2023, Additional history exists Alcohol/Substance Use Screening 09/17/2025 09/17/2024 Depression Screening 09/17/2025 09/17/2024, 09/17/19 25 Diabetes: Urine Protein Screening 09/17/2025 09/17/2024, 10/02/2021, [...] this topic Meningococcal Vaccine Aged Out No camden srini eligible based on patient's age to complete this topic RSV under 20 months Aged Out No longe r eligible based on patient's age to complete this topic Rotavirus Vaccines Aged Out No longer eligible based on patient's age to complete this topic Procedures Procedure Name Priority Date/Time Associated Diagnosis Comments BASIC METABOLIC PANEL Routine 02/08/2025 11:19 AM EDT OSMOLALITY (U) Routine 02/08/2025 11:16 AM EDT URINALYSIS, COMPLETE Routine 02/08/2025 11:16 AM EDT POCT GLYCATED HEMOGLOBIN, TOTAL Routine 09/17/2024 11:33 AM EST Type 2 diabetes mellitus with diabetic polyneuropathy, without long-term current use of insulin (CMS/HCC) ALBUMIN, RANDOM URINE W/CREATININE Routine 09/17/2024 11:06 AM EST Hypertension associated with diabetes (CMS/HCC) (CMS/HCC) HM MAMMOGRAPHY Routine 02/10/2024 10:56 AM EDT HPV MRNA E6/E7 REFLEX TO HPV 16, 18/45 Routine 08/04/2023 10:37 AM EST PAP SMEAR Routine 08/04/2023 10:37 AM EST HM COLONOSCOPY Routine 02/06/2022 LIPID PANEL, STANDARD Routine [...] Relevant to Health Maintenance Results * (ABNORMAL) Basic Metabolic Panel (02/08/2025 11:19 AM EDT) Sodium 146(H) 135 - 145 mmol/L [facility] Potassium 3.0(L) 3.3 - 5.1 mmol/L [facility] Chloride 104 96 - 108 mmol/L [facility] Carbon Dioxide 33(H) 22 - 29 mmol/L [facility] Anion Gap 12 12 - 20 [facility] Urea Nitrogen (BUN) 15 9 - 16 mg/dL [facility] Creatinine, Serum 0.74 0.5 - 1.4 mg/dL [facility] Estimated Glomerular Filt Rate >60 [facility] Comment:Chronic Kidney Disea se: Estimated GFR < 60 mL/min/1.88e3Yilghb Kidney Disease: Estimated GFR < 15 mL/min/1.73m2 Glucose 134(H) 60 - 115 mg/dL [facility] Calcium 10.2 8.4 - 10.2 mg/dL [facility] 02/08/2025 11:1 9 AM EDT 02/08/2025 11:19 AM EDT Generic External Data Provider LAB BLOOD ORDERAB LES Final Result Performing Organization Address [facility] Co de Phone Number [facility] [address] [place] [phone] * Osmolality, Urine (02/08/2025 11:16 AM EDT) OSMOLALITY URINE 671 373 - 1,093 mosm/kg [facility] 02/08/2025 11:1 6 AM EDT 02/08/2025 11:59 AM EDT Generic External Data Provider LAB URINE ORDERAB LES Final Result Performing Organization Address [facility] Co de Phone Number [facility] [address] [place] [phone] * (ABNORMAL) Urinalysis Complete (02/08/2025 11:16 AM EDT) Color Urine Yellow [facility] Appearance Urine Clear [facility] PH 5.5 5.0 - 9.0 [facility] Glucose Urine UA Negative Negative mg/dL [facility] Urine Blood Trace(A) Negative [facility] Specific [place] - Urine 1.020 1.005 - 1.025 [facility] Urine Protein Negative Neg-Trace mg/dL [facility] Urine Ketones Negative Negative mg/dL [facility] Nitrite Urine Negative Negative [facility] Leukocyte Esterase Urine Large (3+)(A) Negative [facility] RBC Urine 0-2 0 - 2 /HPF [facility] Urine WBC >50(A) 0 - 5 /HPF [facility] Urine Squamous Epithelial Cell 3-5 0 - 2 /HPF [facility] Urine Bacteria Trace None Seen [facility] Hyaline Casts, Urine 0-2 0 - 2 /LPF [facility] 02/08/2025 11:1 6 AM EDT 02/08/2025 11:59 AM EDT us Generic External Data Provider LAB URINE ORDERAB LES Final Result [facility] [address] [place] [phone] * (ABNORMAL) POCT HGB A1C (09/17/2024 11:33 AM EST) Hemoglobin A1C 6.4(A) 4.0 - 6.0 % QC Media Lot # [id number] Lot# Expiration Date Blood 09/17/2024 11:3 3 AM EST us Sandra WEISS POINT OF CARE TEST ENTER/EDIT OR DERABLES Final Result * Albumin, Random Urine W/Creatinine (09/17/2024 11:06 AM EST) Creatinine, Urine 81.38 mg/dL [facility] Microalbumin Urine 11.0 mg/L [facility] Microalbum Creatinine Ratio Ur 13.5 <30 ug/mg cr [facility] Comment:Albumin/Creatinine R atio Reference Ranges: Normal: < 30 ug/mg creatinine Microalbuminuria: 30 - 300 ug/mg creatinineClinical Albuminuria: > 300 ug/mg creatinine Urine (Urine, Random) 09/17/2024 11:06 AM EST 09/17/2024 12:58 PM EST Sandra WEISS LAB URINE ORDERABLES Final Resul t [facility] [address] [place] [phone] * Mammography (02/10/2024 10:56 AM EDT) Mammogram BIRADS 1 Normal, Abnormal, BIRADS 1 , BIRADS 2 Comment:1 year follow up Anatomical Region Laterality Modality Other Historical Provider HEALTH MAINTENANCE Final Result * HPV mRNA E6/E7 w/Reflex to HPV Genotypes 16, 18/45 (08/04/2023 10:37 AM EST) Pathologist [facility] HPV nRNA E6/E7 Not Detected Not Detected [facility] Comment:Methodology: Transcr iption-Mediated AmplificationThis assay detects E6/E7 viral messenger RNA (mRNA) from 14high-risk HPV types (16,18,31,33,35,39,45,51,52,56,58,59,66,68).Cervical sources are required for HPV testing.If a vaginal source from a patient who has had atotal hysterectomy with removal of cervix wassubmitted, please contact the testing laboratoryfor alternative testing options.For additional information, please refer tohttp://education.Kumo/faq/BKB040h8(This link if provided for information/educational purposes only.)THIS TEST WAS PERFORMED AT:[facility] [place] [phone] STILES MD HPV mRNA E6/E7 [facility] HPV 16 RNA [facility] HPV 18/45 RNA [facility] 08/04/2023 10:3 7 AM EST 08/05/2023 11:40 AM EST Kelly GREGORIO LAB CYTOLOGY ORDERABLES F inal Result [facility] [address] [place] [address] [phone] * Pap Smear (08/04/2023 10:37 AM EST) 08/04/2023 10:3 7 AM EST 08/05/2023 11:40 AM EST Narrative [facility] - 08/14/2023 4:13 PM EST ----- ------- Name: Sapna Juan I ? Age/Sex: 58/F ? : 1965 Unit#: [id number] ?? Attend Dr: KELLY HIDALGO CNM ?Re08/04/23 ?Status: DEP REF ? Location: HO.HHCLNP ? Disch: ? ----- ------- SPEC : [id number] ?RECD: 08/05/23-1140 ? STATUS: ??SOUT ? REQ NUM: [id number] ? JOHAN: 08/04/23-1037 ? SUBM DR: KELLY HIDALGO CNM ? ENTERED: ??08/05/23-3 ?SP TYPE: Pap Smr ?OTHR : ? [...] 66, 68) ?? HPV testing performed by [facility], [place], [place]. ??See reference laboratory ?? portion of the EMR for entire report. ?Clinical Information LMP: Postmenopausal Previous PAP test: 2020, WNL ? Material Received ?? ThinPrep-Cervical ----- ------- Signed (signature on file) NICK Sena (ASCP) 08/14/23 1613 ? ----- ------- ? END OF REPORT ? Kelly Hidalgo [facility] CYTOLOGY ORDERABLES F inal Result [facility] [address] [place] [phone] * Hm Colonoscopy (02/06/2022) Colonoscopy Normal Normal Historical Provider HEALTH MAINTENANCE Final Result * (ABNORMAL) LIPID PANEL, STANDARD (10/02/2021 1:25 PM EST) Chol/HDLC Ratio 4.3 <5.0 (calc) [facility] Cholesterol, Total 181 <200 mg/dL [facility] HDL Cholesterol 42(L) > OR = 50 mg/dL [facility] LDL Cholesterol 105(H) mg/dL (calc) [facility] Comment: Reference range: <100 ?? Desirable range <100 mg/dL for primary prevention; ?? <70 mg/dL for patients with CHD or diabetic patients ?? with > or = 2 CHD risk factors. ?? LDL-C is now calculated using the Jennifer ?? calculation, which is a validated novel method providing ?? better accuracy than the Friedewald equation in the ?? estimation of LDL-C. ?? Golden NELSON et al. LILIA. 2013;310(19): 5654-3810 ?? (http://zoojoo.BE.Babble/faq/SGJ450) Non-HDL Cholesterol 139(H) <130 mg/dL (calc) [facility] Comment: For patients with diabetes plus 1 major ASCVD risk ?? factor, treating to a non-HDL-C goal of <100 mg/dL ?? (LDL-C of <70 mg/dL) is considered a therapeutic ?? option. Triglycerides 216(H) <150 mg/dL [facility] Comment: ?? If a non-fasting specimen was collected, consider repeat triglyceride testing on a fasting specimen if clinically indicated. ?? Jone et al. J. of Clin. Lipidol. 2015;9:129-169. ?? 10/02/2021 1:25 PM EST [facility] ANP LAB BLOOD ORDERABLES Final Resul t Performing Organization Address [facility]/ZIP Co de Phone Number [facility] [address] * HEPATITIS C AB W/REFL TO HCV RNA, QN, PCR (04/24/2021 10:45 AM EDT) HEPATITIS C ANTIBODY NON-REACT SHANITA NON-REACT SHANITA [facility] INDEX 0.03 <1.00 [facility] Comment: ?? HCV antibody was non-reactive. There is no laboratory ?? evidence of HCV infection. ?? In most cases, no further action is required. However, if recent HCV exposure is suspected, a test for HCV RNA (test code 01270) is suggested. ?? For additional information please refer to http://education.Kumo/faq/CDC61m6 (This link is being provided for informational/ educational purposes only.) ?? 04/24/2021 10:4 5 AM EDT Chely Null MD HISTORICAL/NON ORDERA BLE LABS Final Result Performing Organization Address [facility]/ZIP Co de Phone Number [facility] [address] [place] [address], * HIV 1/2 ANTIGEN/ANTIBODY,FOURTH GENERATION W/RFL (04/24/2021 10:45 AM EDT) HIV-1/2 ANTIGEN AND ANTIBODIES, 4TH GENERATION W/ REFLEX NON-REACT SHANITA NON-REACT SHANITA [facility] Comment: HIV-1 antigen and HIV-1/HIV-2 [...] ? For additional information please refer to http://education.Kumo/faq/COS912 (This link is being provided for informational/ educational purposes only.) ? The performance of this assay has not been clinically validated in patients less than 2 years old. ?? 04/24/2021 10:4 5 AM EDT Chely Null MD LAB BLOOD ORDERABLES Final Result Performing Organization Address City/State/[facility] Co fl Phone Number [facility] [address] from Last 3 Months or Most Recently Relevant to Health Maintenance Insurance HS FULL [facility] C3 DENTAL-[facility] MEDICAID STAND ADULT Care Teams Carpet Cutter Relationship Specialty Start Date End Date Sandra Currie ANP [address] [place] [phone] PCP - General Family Medicine 04/30/21
== END 2025-02-08 11:07 | disposition home or self-care (01) ==
LOC: HO.MAMMO 11:06
PROVIDERS: PCP Nurse Practitioner Primary Care; Visit Provider Internal Medicine Hypertension Specialist
DX: I70.1 Atherosclerosis of renal artery (principal); E87.0 Hyperosmolality and hypernatremia; I10 Essential (primary) hypertension
CPT/HCPCS: 36415; 80048; 81001; 83935

== ENCOUNTER 2025-02-10 13:25 | Outpatient (AMB) | payer MEDICAID, SELFPAY ==
--- NOTE | 2025-02-10 13:24 | HO.NEPHOV_ITS ---
Vital Signs 02/10/25 13:26 Height 5 ft Weight 139 lb BMI 27.1 BP 116/80 Blood Pressure Location Rt brachial Position Sitting Pulse 70 Pulse Source Pulse Oximeter Pulse Oximetry (%) 96 Oxygen Delivery Method Room Air Intake Visit Reasons: 6 weeks fu/ Conf Cryptologic Technician Required: Yes Cryptologic Technician Name: Rony [id number] Accompanied by: Self / Same As Patient Allergies No Known Allergies Allergy (Verified 02/10/25 13:26) Medication List - Last Reconciled 02/10/25 by Robbie Marley MD albuterol sulfate 90 mcg/actuation (ProAir HFA) 2 puffs inhalation Q4-6H PRN aspirin 81 mg PO DAILY atenolol 50 mg PO BID bimatoprost 0.01% (Lumigan) 1 drp ophthalmic (eye) BEDTIME brimonidine 0.2% 1 drp ophthalmic (eye) BID ciclopirox 8% topical BEDTIME cyanocobalamin (vitamin B-12) 1,000 mcg PO DAILY dorzolamide 2% 1 drp ophthalmic (eye) TID ferrous sulfate (FeroSul) 325 mg PO DAILY fluticasone propionate 50 mcg/actuation 1 spray intranasal BID hydrochlorothiazide 25 mg PO DAILY hydroxyzine HCl 25 mg PO QID PRN lanolin ifhwixy-qr-t.pet-ceres (Minerin Creme topical) appl topical BID loratadine (Allergy Relief (loratadine)) 10 mg PO DAILY metformin 500 mg PO BID netarsudil 0.02% (Rhopressa) 1 drp ophthalmic (eye) BEDTIME omeprazole 20 mg PO DAILY potassium chloride ER 20 mEq PO DAILY triamcinolone acetonide 0.1% topical BID HPI Comments Details: Middle-aged woman with hypertension. Blood pressure has been difficult to control. She had a Doppler ultrasound which showed possible renal artery stenosis with beaded appearance suggestive of fibromuscular dysplasia. Referred for evaluation of hypertension Renal function has been stable Renal arteries evaluated by Endovascular surgery and NO ADAM was noted 12/30/24 Overall doing well. Home BP was low this and did not take meds. 02/10/25 K was low; KCL added ; HCTZ was lowered by 50% ; Doing well. [facility] Medical History Constipation Menorrhagia Heartburn Microscopic hematuria Hemorrhoids HTN (hypertension) Anemia GERD (gastroesophageal reflux disease) Social History Alcohol intake: never Physical Exam Vital Signs: Last Vital Signs Pulse 70 02/10/25 13:26 BP 116/80 02/10/25 13:26 Pulse Ox 96 02/10/25 13:26 Oxygen Delivery Method Room Air 02/10/25 13:26 BMI result Body Mass Index 27.1 Comfortable Neck supple no JVD. Lungs entry equal no rales. Heart S1-S2 heard no gallop or rub. Abdomen soft nontender. Neuro alert awake oriented. No asterixis. Extremities no edema. Results Reviewed Nephrology Results: Sodium 146 mmol/L (135-145) H 02/08/25 Potassium 3.0 mmol/L (3.3-5.1) L 02/08/25 Chloride 104 mmol/L (96-108) 02/08/25 Carbon Dioxide 33 mmol/L (22-29) H 02/08/25 BUN 15 mg/dL (9-16) 02/08/25 Creatinine 0.74 mg/dL (0.5-1.4) 02/08/25 Calcium 10.2 mg/dL (8.4-10.2) 02/08/25 PTH Intact 120.8 pg/mL (8.7-77.1) H 09/17/24 Urine Protein Negative mg/dL (Neg-Trace) 02/08/25 Urine Creatinine 81.38 mg/dL 09/17/24 Assessment & Plan Assessment & Plan (1) HTN (hypertension): Code(s): I10 - Essential (primary) hypertension Category: Medical (2) Renal artery stenosis: Code(s): I70.1 - Atherosclerosis of renal artery Category: Medical (3) Hypernatremia: Code(s): E87.0 - Hyperosmolality and hypernatremia Category: Medical Plan Middle-aged woman with hypertension. Renal function stable. Doppler ultrasonogram revealed a possible renal artery stenosis with beaded appearance. No ADAM by doppler done by Endovascular surgery -Sep 2023 at [facility] Mild hypernatremia due to free water deficit Plan Blood pressure is better Keep HCTZ along with KCL The use of HCTZ should help corect hypernatremia Increase PO Water intake Keep her on a low-sodium diet. Orders: Orders Basic Metabolic Panel 3 Months I10 - Essential (primary) hypertension, I70.1 - Atherosclerosis of renal artery Medications: Refilled potassium chloride ER 20 mEq PO DAILY 90 tabs 1RF Coding Level of Care Code Est Pt Level 4 (80543) Diagnoses HTN (hypertension) I10 Renal artery stenosis I70.1 Hypernatremia E87.0
[2025-02-10 13:26] VITALS: BP 116/80; PULSE 70; O2SAT 96; BMI 27.1
--- OUTSIDE RECORDS SUMMARY | 2025-02-10 15:51 | XMS_ITS | Clinical Summary ---
Author Organization [employer] Address [address] [facility] [address] [place] [address] Care Team Providers Care Ocean Import Representative Name Role Phone Sandra Currie Primary Care Provider [phone] Allergies No known active allergies Medications ergocalciferol (Vitamin D-2) 1.25 MG (59798 UT) capsule take 1 capsule by oral [...] 2 diabetes mellitus with hyperglycemia, unspecified whether chcf insulin use ([facility]) Use to check fingerstick blood sugar daily 50 each 11 03/18/20 24 Active FreeStyle lancetsIndications :Type 2 diabetes mellitus with hyperglycemia, unspecified whether buttermaker helper insulin use ([facility]) 1 each by Other route Once per day. 60 each 03/18/20 24 Active Alcohol Swabs padsIndications:Ty pe 2 diabetes mellitus with hyperglycemia, unspecified whether buttermaker helper insulin use ([facility]) 1 each if needed (to clean skin). 100 each 03/18/20 24 Active aspirin 81 MG chewable tabletIndications: Healthcare maintenance Take 1 tablet daily 90 tablet 3 03/18/20 24 Active atenolol (Tenormin) 50 MG tabletIndications: Hypertension associated with diabetes ([facility]) TAKE 1 TABLET BY MOUTH TWICE DAILY [...] 40 MG tabletIndications: Hypertension associated with diabetes ([facility]) TAKE 1 TABLET BY MOUTH ONCE DAILY [...] 2 diabetes mellitus with hyperglycemia, unspecified whether chcf insulin use ([facility]) TAKE 1 TABLET BY MOUTH TWICE DAILY WITH FOOD 180 tablet 3 12/30/19 25 Active potassium chloride ER (Micro-K) 10 MEQ ER capsuleIndications :Hypokalemia Take 1 capsule (10 mEq) by mouth 2 times daily for 5 days. Do not crush or chew. 10 capsule 02/09/20 25 025 Active Active Problems Problem Noted Date Diagnosed Date Advanced open-angle glaucoma, severe stage 12/14 Overview (12/15/2023): w/ sx poor vision and visual field defects. She is followed closely by Dr. Edge and is on multiple medications. Eye exam [facility] 06/2023, no retinopathy. 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 Encounters Date Type Department Care Team Description 02/08/2025 Orders Only [facility] MEDICINE [address] [place] [phone] Sandra Currie ANP Hypokalemia (Primary Dx) 02/08/2025 Results Follow-Up [address] [address] Sandra Currie ANP Basic Metabolic Panel, Urinalysis Complete, Osmolality, Urine 02/08/2025 Orders Only GENERIC EXTERNAL DATA DEPARTMENT Provider, Generic External Data 12/27/2024 Refill [facility] [address] [place] [address] Sandra Currie ANP Allergic conjunctivitis of both eyes; Hypertension associated with diabetes ([facility]); Iron deficiency anemia, unspecified iron deficiency anemia type; Type 2 diabetes mellitus with hyperglycemia, unspecified whether chcf insulin use ([facility]) 12/14/[address] [address] Sandra Currie ANP Chandrika recall 12/10/2024 Refill [facility] [address] [place] [address] Sandra Currie ANP Neuropathic pain of lower extremity; Non-seasonal allergic rhinitis due to other allergic trigger 12/06/2024 Telephone [facility] OPTOMETRY [address] [place] [address] SravanCooper borgesn, OD 11/19/2024 Population Health Risk Score [facility] () Department [address] [place] [phone] Provider, Population Health Generic from Last [...] 2:00 PM EDT Office Visit [facility] OPTOMETRY [address] [place] [address] Susan Hinson, OD [address] [place] [address] 03/28/2025 11:15 AM EDT Office Visit [facility] MEDICINE [address] [place] [address] Sandra Currie, ANP [address] [place] [address] Health Maintenance Due Date Last Done Comments [...] Colorectal Cancer Screening 02/06/2025 Mammogram 02/09/2025 02/10/2024, 05/0 03/2024, 01/09/2023, Additional history exists Diabetes: Foot [...] EDT) Sodium 146(H) 135 - 145 mmol/L [facility] Potassium 3.0(L) 3.3 - 5.1 mmol/L [facility] Chloride 104 96 - 108 mmol/L [facility] Carbon Dioxide 33(H) 22 - 29 mmol/L [facility] Anion Gap 12 12 - 20 [facility] Urea Nitrogen (BUN) 15 9 - 16 mg/dL [facility] Creatinine, Serum 0.74 0.5 - 1.4 mg/dL [facility] Estimated Glomerular Filt Rate >60 [facility] Comment:Chronic Kidney Disea se: Estimated GFR < 60 mL/min/1.88u0Lvxwyd Kidney Disease: Estimated GFR < 15 mL/min/1.73m2 Glucose 134(H) 60 - 115 mg/dL [facility] Calcium 10.2 8.4 - 10.2 mg/dL [facility] 02/08/2025 11:1 9 AM EDT 02/08/2025 11:19 AM EDT us Generic External Data Provider LAB BLOOD ORDERAB LES Final Result Performing Organization Address [facility] Co de Phone Number [facility] [address] [place] [phone] * Osmolality, Urine (02/08/2025 11:16 AM EDT) OSMOLALITY URINE 671 373 - 1,093 mosm/kg [facility] 02/08/2025 11:1 6 AM EDT 02/08/2025 11:59 AM EDT us Generic External Data Provider LAB URINE ORDERAB LES Final Result Performing Organization Address [facility] Co de Phone Number [facility] [address] [place] [phone] * (ABNORMAL) Urinalysis Complete (02/08/2025 11:16 AM EDT) Color Urine Yellow [facility] Appearance Urine Clear [facility] PH 5.5 5.0 - 9.0 [facility] Glucose Urine UA Negative Negative mg/dL [facility] Urine Blood Trace(A) Negative [facility] Specific [place] - Urine 1.020 1.005 - 1.025 [facility] Urine Protein Negative Neg-Trace mg/dL [facility] Urine Ketones Negative Negative mg/dL [facility] Nitrite Urine Negative Negative [facility] Leukocyte Esterase Urine Large (3+)(A) Negative [facility] RBC Urine 0-2 0 - 2 /HPF [facility] Urine WBC >50(A) 0 - 5 /HPF [facility] Urine Squamous Epithelial Cell 3-5 0 - 2 /HPF [facility] Urine Bacteria Trace None Seen [facility] Hyaline Casts, Urine 0-2 0 - 2 /LPF [facility] 02/08/2025 11:1 6 AM EDT 02/08/2025 11:59 AM EDT Generic External Data Provider LAB URINE ORDERAB LES Final Result [facility] [address] [place] [phone] * (ABNORMAL) POCT HGB A1C (09/17/2024 11:33 AM EST) Hemoglobin A1C 6.4(A) 4.0 - 6.0 % QC Media Lot # [id number] Lot# Expiration Date Blood 09/17/2024 11:3 3 AM EST us Sandra Currie ANP POINT OF CARE TEST ENTER/EDIT OR DERABLES Final Result * Albumin, Random Urine W/Creatinine (09/17/2024 11:06 AM EST) Creatinine, Urine 81.38 mg/dL [facility] Microalbumin Urine 11.0 mg/L [facility] Microalbum Creatinine Ratio Ur 13.5 <30 ug/mg cr [facility] Comment:Albumin/Creatinine R atio Reference Ranges: Normal: < 30 ug/mg creatinine Microalbuminuria: 30 - 300 ug/mg creatinineClinical Albuminuria: > 300 ug/mg creatinine Urine (Urine, Random) 09/17/2024 11:06 AM EST 09/17/2024 12:58 PM EST [facility] LAB URINE ORDERABLES Final Resul t [facility] [address] [place] [phone] * Mammography (02/10/2024 10:56 AM EDT) Pathologist [facility] Mammogram BIRADS 1 Normal, Abnormal, BIRADS 1 , BIRADS 2 Comment:1 year follow up Anatomical Region Laterality Modality Other Historical Provider MD HEALTH MAINTENANCE Final Result * HPV mRNA E6/E7 w/Reflex to HPV Genotypes 16, 18/45 (08/04/2023 10:37 AM EST) Pathologist [facility] HPV nRNA E6/E7 Not Detected Not Detected [facility] Comment:Methodology: Transcr iption-Mediated AmplificationThis assay detects E6/E7 viral messenger RNA (mRNA) from 14high-risk HPV types (16,18,31,33,35,39,45,51,52,56,58,59,66,68).Cervical sources are required for HPV testing.If a vaginal source from a patient who has had atotal hysterectomy with removal of cervix wassubmitted, please contact the testing laboratoryfor alternative testing options.For additional information, please refer tohttp://education.Jostle/faq/GJY004c1(This link if provided for information/educational purposes only.)THIS TEST WAS PERFORMED AT:[facility] [place] [phone] STILES MD HPV mRNA E6/E7 TNP [facility] HPV 16 RNA TNP [facility] HPV 18/45 RNA TNP [facility] 08/04/2023 10:3 7 AM EST 08/05/2023 11:40 AM EST us Kelly Hidalgo CNM LAB CYTOLOGY ORDERABLES F inal Result [facility] [address] [place] [phone] * Pap Smear (08/04/2023 10:37 AM EST) 08/04/2023 10:3 7 AM EST 08/05/2023 11:40 AM EST Narrative [facility] - 08/14/2023 4:13 PM EST ----- ------- Name: Sapna Juan I ? Age/Sex: 58/F ? : 1965 Unit#: [id number] ?? Attend Dr: KELLY HIDALGO CNM ?Re08/04/23 ?Status: DEP REF ? Location: HO.HHCLNP ? Disch: ? ----- ------- SPEC : [id number] ?RECD: 08/05/23 ? STATUS: ??SOUT ? REQ NUM: [id number] ? JOHAN: 08/04/23-1037 ? SUBM DR: KELLY HIDALGO CNM ? ENTERED: ??08/05/23 ?SP TYPE: Pap Smr ?OTHR : ? [...] 67, 69) ?? HPV testing performed by [facility], [place], [place]. ??See reference laboratory ?? portion of the EMR for entire report. ?Clinical Information LMP: Postmenopausal Previous PAP test: 2019, WNL ? Material Received ?? ThinPrep-Cervical ----- ------- Signed (signature on file) NICK Sena ([facility]) 08/14/23 1613 ? ----- ------- ? END OF REPORT ? Kelly Hidalgo [facility] CYTOLOGY ORDERABLES F inal Result [facility] [address] [place] [phone] * Colonoscopy (02/06/2022) [facility] Colonoscopy Normal Normal Historical Provider HEALTH MAINTENANCE [...] ?? Golden NELSON et al. LILIA. 2013;310(19): 0508-4789 ?? (http://Chasqui Bus.OpenGov/faq/HKI959) Non-HDL Cholesterol 139(H) <130 mg/dL (calc) [facility] Comment: For patients with diabetes plus 1 major ASCVD risk ?? factor, treating to a non-HDL-C goal of <100 mg/dL ?? (LDL-C of <70 mg/dL) is considered a therapeutic ?? option. Triglycerides 216(H) <150 mg/dL [facility] Comment: ?? If a non-fasting specimen was collected, consider repeat triglyceride testing on a fasting specimen if clinically indicated. ?? Jone et al. J. of Clin. Lipidol. 2015;9:129-169. ?? 10/02/2021 1:25 PM EST us [facility] LAB BLOOD ORDERABLES Final Resul t [facility] [address] * HEPATITIS C AB W/REFL TO [...] a test for HCV RNA (test code 08700) is suggested. ?? For additional information please refer to http://Chasqui Bus.Jostle/faq/QWF93b9 (This link is being provided for informational/ educational purposes only.) ?? 04/24/2021 10:4 5 AM EDT us Chely Null MD HISTORICAL/NON ORDERA BLE LABS Final Result Performing Organization Address [facility] Co de Phone Number [facility] [address] * HIV 1/2 ANTIGEN/ANTIBODY,FOURTH GENERATION W/RFL [...] ? For additional information please refer to http://education.Jostle/faq/UPK072 (This link is being provided for informational/ educational purposes only.) ? The performance of this assay has not been clinically validated in patients less than 2 years old. ?? 04/24/2021 10:4 5 AM EDT us Chely Null MD LAB BLOOD ORDERABLES Final Result Performing Organization Address [facility] Co de Phone Number [facility] [address] from Last 3 Months or Most Recently Relevant to Health Maintenance Insurance HSN [employer] [facility] C3 [facility] MEDICAID STAND ADULT Care Teams Ocean Import Representative Relationship Specialty Start Date End Date Sandra Currie ANP [address] [place] [phone] PCP - General Family Medicine 04/30/21
== END 2025-02-10 13:38 | disposition home or self-care (01) ==
LOC: HO.HKA 13:26
PROVIDERS: PCP Nurse Practitioner Primary Care; Visit Provider Internal Medicine Hypertension Specialist
DX: I10 Essential (primary) hypertension (principal); I70.1 Atherosclerosis of renal artery; E87.0 Hyperosmolality and hypernatremia
CPT/HCPCS: 99214

== ENCOUNTER → 2025-02-10 13:25 | Outpatient (BNVA) | payer MEDICAID, SELFPAY | PROVIDERS: PCP Nurse Practitioner Primary Care; Visit Provider Internal Medicine Hypertension Specialist | DX: I10 Essential (primary) hypertension (principal); I70.1 Atherosclerosis of renal artery; E87.0 Hyperosmolality and hypernatremia | CPT/HCPCS: 99212 ==

== ENCOUNTER 2025-02-15 12:17 | Outpatient (REF) | payer MEDICAID, SELFPAY ==
[2025-02-15 13:22] LABS: Appearance Urine Clear; Color Urine Yellow; Glucose Urine UA Negative (Negative); Leukocyte Esterase Urine Moderate (2+) (Negative); Nitrite Urine Negative (Negative); PH 5.5 (5.0-9.0); UMIC TRIGGER UA YES; Urine Blood Negative (Negative); Urine Ketones Negative (Negative); Urine Protein Negative (Neg-Trace)
[2025-02-15 13:26] LABS: Bacteria Urine 1+ (None Seen); Hyaline Casts Urine 0-2 /LPF (0-2); RBC Urine 0-2 /HPF (0-2); WBC Urine 21-50 /HPF (0-5)
[2025-02-15 13:55] LABS: Blood Urea Nitrogen 13 mg/dL (9-16); Calcium 10.1 mg/dL (8.4-10.2); Cholesterol 243 mg/dL (<200); HDL Cholesterol 43 mg/dL (>40); Triglycerides 455 mg/dL (<150)
[2025-02-15 14:00] LABS: Anion Gap 9 (12-20); Blood Urea Nitrogen 14 mg/dL (9-16); Calcium 10.4 mg/dL (8.4-10.2); Carbon Dioxide 34 mmol/L (22-29); Chloride 108 mmol/L (96-108); Estimated Glomerular Filt Rate > 60; Glucose Random 95 mg/dL (60-115); Potassium 3.6 mmol/L (3.3-5.1); Sodium 147 mmol/L (135-145)
[2025-02-15 14:15] LABS: Vitamin D 25-OH Total 24.5 ng/mL (>30)
--- OUTSIDE RECORDS SUMMARY | 2025-02-15 14:31 | XMS_ITS | Clinical Summary ---
Author Organization [employer] Address [address] [facility] [address] [place] [address] Care Team Providers Care Camp Counselor Name Role Phone Sandra Currie Primary Care Provider [phone] Allergies No known active allergies Medications ergocalciferol (Vitamin D-2) 1.25 MG (59820 UT) capsule take 1 capsule by oral [...] 2 diabetes mellitus with hyperglycemia, unspecified whether bull float finisher insulin use ([facility]) Use to check fingerstick blood sugar daily 50 each 11 03/18/20 24 Active FreeStyle lancetsIndications :Type 2 diabetes mellitus with hyperglycemia, unspecified whether fci insulin use ([facility]) 1 each by Other route Once per day. 60 each 03/18/20 24 Active Alcohol Swabs padsIndications:Ty pe 2 diabetes mellitus with hyperglycemia, unspecified whether fci insulin use ([facility]) 1 each if needed (to clean skin). 100 each 03/18/20 24 Active aspirin 81 MG chewable tabletIndications: Healthcare maintenance Take 1 tablet daily 90 tablet 3 03/18/20 24 Active atenolol (Tenormin) 50 MG tabletIndications: Hypertension associated with diabetes ([facility]) TAKE 1 TABLET BY MOUTH TWICE DAILY [...] 40 MG tabletIndications: Hypertension associated with diabetes ([facility]) TAKE 1 TABLET BY MOUTH ONCE DAILY [...] 2 diabetes mellitus with hyperglycemia, unspecified whether fci insulin use ([facility]) TAKE 1 TABLET BY MOUTH TWICE DAILY WITH FOOD 180 tablet 3 12/30/19 25 Active potassium chloride ER (Micro-K) 10 MEQ ER capsuleIndications :Hypokalemia Take 1 capsule (10 mEq) by mouth 2 times daily for 5 days. Do not crush or chew. 10 capsule 02/09/20 25 025 Active Problems Problem Noted Date Diagnosed Date Advanced open-angle glaucoma, severe stage 12/14 Overview (12/15/2023): w/ sx poor vision and visual field defects. She is followed closely by Dr. Edge and is on multiple medications. Eye exam [facility] 06/2023, no retinopathy. Hypertension associated with diabetes [...] me she just came out of the um specialist office and that her blood pressure was [...] On exam no eye tenderness, Pt has bead trimmer Encounters Date Type Department Care Team Description 02/15/2025 Orders Only GENERIC EXTERNAL DATA DEPARTMENT Provider, Generic External Data 02/08/2025 Orders Only [address] [address] Sandra Currie ANP Hypokalemia (Primary Dx) 02/08/2025 Results Follow-Up [address] [address] Sandra Currie ANP Basic Metabolic Panel, Urinalysis Complete, Osmolality, Urine 02/08/2025 Orders Only GENERIC EXTERNAL DATA DEPARTMENT Provider, Generic External Data 12/27/[address] [address] Sandra Currie ANP Allergic conjunctivitis of both eyes; Hypertension associated with diabetes ([facility]); Iron deficiency anemia, unspecified iron deficiency anemia type; Type 2 diabetes mellitus with hyperglycemia, unspecified whether bull float finisher insulin use ([facility]) 12/14/2024 Telephone [facility] [address] [place] [address] Sandra Currie ANP Chandrika recall 12/10/2024 Refill [facility] [address] [place] [address] Sandra Currie ANP Neuropathic pain of lower extremity; Non-seasonal allergic rhinitis due to other allergic trigger 12/06/2024 Telephone [facility] [address] [place] [address] Susan Hinson, OD 11/19/2024 Population Health Risk Score [facility] () Department [address] [address] Provider, Population Health Generic from [...] with others, in a hotel, in a nursing home, living outside on the street, on [...] 2:00 PM EDT Office Visit [facility] [address] [place], [place] [phone] Susan Hinson, OD [address] [place] [address] 03/28/2025 11:15 AM EDT Office Visit [facility] [address] [place] [address] Sandra Currie, ANP [address] [place], [place] [phone] Health Maintenance Due Date Last Done Comments [...] 02/21/20 18, 01/14/2017, 03/29/2016 Lipid Panel 10/02/2022 02/15/2025, 09/09, 04/24/2021, Additional history exists Dental X-Ray: Full Mouth [...] Procedure Name Priority Date/Time Associated Diagnosis Comments CALCIUM Routine 02/15/2025 12:22 PM EDT UREA NITROGEN (BUN) Routine 02/15/2025 1 2:22 PM EDT CALCIUM Routine 02/15/2025 12:22 PM EDT URINALYSIS, COMPLETE Routine 02/15/2025 12:22 PM EDT BASIC METABOLIC PANEL Routine 02/15/2025 12:22 PM EDT Hypokalemia VITAMIN D,25-OH,TOTAL,IA Routine 02/15/2025 12:22 PM EDT Hyperparathyroidism (CMS/HCC) LIPID PANEL, STANDARD Routine 02/15/2025 12:22 PM EDT Type 2 diabetes mellitus with diabetic polyneuropathy, without long-term current use of insulin (CMS/HCC) BASIC METABOLIC PANEL Routine 02/08/2025 11:19 AM [...] 10:37 AM EST HM COLONOSCOPY Routine 02/06/2022 ZZZ HISTORICAL HEPATITIS C AB W/REFL TO [...] Relevant to Health Maintenance Results * (ABNORMAL) Vitamin D, 25-Hydroxy, Total, Immunoassay (02/15/2025 12:22 PM EDT) Vitamin D 25-OH Total 24.5(L) >30 ng/mL [facility] Comment: Health Based Reference Values*< 20 ??ng/mL ??Nbjzompuj15-53 ng/mL ??Insufficient> 30 ??ng/mL ??Sufficient*Chandrika HWANG. N Engl J Med. 2007;357:266-280There is no well-established upper level of normal vitamin Dlevels. Some laboratories use 50 ng/mL as an upper limit ofnormal. However, toxicity is patient-dependent and may occurat any level. Careful correlation with the patient'spresentation is necessary and, if there is concern forvitamin D toxicity, treatment should be consideredirrespective of the serum level.Care must be taken in interpreting Vitamin D results fromdifferent laboratories and methodologies. ??Published datademonstrated that results from patients undergoinghemodialysis may show a negative bias when tested withvarious automated 25-OH vitamin D assays when compared toLC- MS/MS.When testing samples from patients whose predominant form ofVitamin D is Vitamin D2, such as patients receiving VitaminD2 supplementation, results that are subtherapeutic shouldbe confirmed with another method such as LC-MS/MS. Blood Venous blood specimen / Unknown 02/15/2025 12:22 PM EDT 02/15/2025 1:20 PM EDT us Sandra Currie ANP LAB BLOOD ORDERABLES Final Resul t Performing Organization Address [facility] Co de Phone Number [facility] [address] [place] [phone] * (ABNORMAL) Urinalysis Complete (02/15/2025 12:22 PM EDT) Only the most recent of2 resultswithin the time period is included. Color Urine Yellow [facility] Appearance Urine Clear [facility] PH 5.5 5.0 - 9.0 [facility] Glucose Urine UA Negative Negative mg/dL [facility] Urine Blood Negative Negative [facility] Specific Lynn - Urine 1.020 1.005 - 1.025 [facility] Urine Protein Negative Neg-Trace mg/dL [facility] Urine Ketones Negative Negative mg/dL [facility] Nitrite Urine Negative Negative [facility] Leukocyte Esterase Urine Moderate (2+)(A) Negative [facility] RBC Urine 0-2 0 - 2 /HPF [facility] Urine WBC 21-50(A) 0 - 5 /HPF [facility] Urine Squamous Epithelial Cell 3-5 0 - 2 /HPF [facility] Urine Bacteria 1+ None Seen [facility] Hyaline Casts, Urine 0-2 0 - 2 /LPF [facility] 02/15/2025 12:2 2 PM EDT 02/15/2025 1:02 PM EDT us Generic External Data Provider LAB URINE ORDERAB LES Final Result Performing Organization Address [facility]/ZIP Co de Phone Number [facility] [address] [place] [phone] * BUN (Blood Urea Nitrogen) (02/15/2025 12:22 PM EDT) Urea Nitrogen (BUN) 13 9 - 16 mg/dL [facility] 02/15/2025 12:2 2 PM EDT 02/15/2025 1:20 PM EDT Generic External Data Provider LAB BLOOD ORDERAB LES Final Result Performing Organization Address City/[facility]/ZIP Co de Phone Number [facility] [address] [place] [phone] * Calcium (02/15/2025 12:22 PM EDT) Only the most recent of2 resultswithin the time period is included. Pathologist [facility] Calcium 10.1 8.4 - 10.2 mg/dL [facility] 02/15/2025 12:2 2 PM EDT 02/15/2025 1:20 PM EDT Generic External Data Provider LAB BLOOD ORDERAB LES Final Result Performing Organization Address City/[facility]/ZIP Co de Phone Number [facility] [address] [place] [phone] * (ABNORMAL) Lipid Panel, Standard (02/15/2025 12:22 PM EDT) Triglycerides 455(H) <150 mg/dL [facility] Comment:Desirable Triglyceri de: less than 150 mg/dLBorderline High Triglyceride 150-199 mg/dLHigh Triglyceride: 200-499 mg/dLVery High Triglyceride: greater than or equal to 5OO mg/dL Cholesterol 243(H) <200 mg/dL [facility] Comment:Desirable Cholestero l: less than 200 mg/dLBorderline High Cholesterol: 200-239 mg/dLHigh Cholesterol: greater than 239 mg/dL LDL Cholesterol Calculated TNP <100 mg/dL [facility] Comment:Unable to calculate the LDL. The formula of Friedwald,Jauregui, and Vipul is only valid if the triglycerides areless than 400 mg/dl. HDL Cholesterol 43 >40 mg/dL [facility] Comment:Desirable HDL: great er than 40 mg/dL Note: This HDL assay may give artificially low results in patients with liver disease. Blood Venous blood specimen / Unknown 02/15/2025 12:22 PM EDT 02/15/2025 1:20 PM EDT Sandra Currie ANP LAB BLOOD ORDERABLES Final Resul t Performing Organization Address [facility] Co de Phone Number [facility] [address] [place], [place] [phone] * (ABNORMAL) Basic Metabolic Panel (02/15/2025 12:22 PM EDT) Only the most recent of2 resultswithin the time period is included. Sodium 147(H) 135 - 145 mmol/L [facility] Potassium 3.6 3.3 - 5.1 mmol/L [facility] Chloride 108 96 - 108 mmol/L [facility] Carbon Dioxide 34(H) 22 - 29 mmol/L [facility] Anion Gap 9(L) 12 - 20 [facility] Urea Nitrogen (BUN) 14 9 - 16 mg/dL [facility] Creatinine, Serum 0.73 0.5 - 1.4 mg/dL [facility] Estimated Glomerular Filt Rate >60 [facility] Comment:Chronic Kidney Disea se: Estimated GFR < 60 mL/min/1.10p5Rrcqht Kidney Disease: Estimated GFR < 15 mL/min/1.73m2 Glucose 95 60 - 115 mg/dL [facility] Calcium 10.4(H) 8.4 - 10.2 mg/dL [facility] Blood Venous blood specimen / Unknown 02/15/2025 12:22 PM EDT 02/15/2025 1:20 PM EDT Sandra Currie ANP LAB BLOOD ORDERABLES Final Resul t Performing Organization Address City/State/[facility] Co de Phone Number [facility] [address] [place] [phone] * Osmolality, Urine (02/08/2025 11:16 AM EDT) OSMOLALITY URINE 671 373 - 1,093 mosm/kg [facility] 02/08/2025 11:1 6 AM EDT 02/08/2025 11:59 AM EDT Generic External Data Provider LAB URINE ORDERAB LES Final Result Performing Organization Address [facility] de Phone Number [facility] [address] [place] [phone] * (ABNORMAL) POCT HGB A1C (09/17/2024 11:33 AM EST) Hemoglobin A1C 6.4(A) 4.0 - 6.0 % QC Media Lot # [id number] Lot# Expiration Date Blood 09/17/2024 11:3 3 AM EST us Sandra WEISS POINT OF CARE TEST ENTER/EDIT OR DERABLES Final Result * Albumin, Random Urine W/Creatinine (09/17/2024 11:06 AM EST) Creatinine, Urine 81.38 mg/dL [facility] Microalbumin Urine 11.0 mg/L [facility] Microalbum Creatinine Ratio Ur 13.5 <30 ug/mg cr [facility] Comment:Albumin/Creatinine R atio Reference Ranges: Normal: < 30 ug/mg creatinine Microalbuminuria: 30 - 300 ug/mg creatinineClinical Albuminuria: > 300 ug/mg creatinine Urine (Urine, Random) 09/17/2024 11:06 AM EST 09/17/2024 12:58 PM EST us Sandra Currie ANP LAB URINE ORDERABLES Final Resul t Performing Organization Address [facility] Co de Phone Number [facility] [address] [place] [phone] * Mammography (02/10/2024 10:56 AM EDT) Mammogram BIRADS 1 Normal, Abnormal, BIRADS 1 , BIRADS 2 Comment:1 year follow up Anatomical Region Laterality Modality Other Historical Provider HEALTH MAINTENANCE Final Result * HPV mRNA E6/E7 w/Reflex to HPV Genotypes 16, 18/45 (08/04/2023 10:37 AM EST) HPV nRNA E6/E7 Not Detected Not Detected [facility] Comment:Methodology: Transcr iption-Mediated AmplificationThis assay detects E6/E7 viral messenger RNA (mRNA) from 14high-risk HPV types (16,18,31,33,35,39,45,51,52,56,58,59,66,68).Cervical sources are required for HPV testing.If a vaginal source from a patient who has had atotal hysterectomy with removal of cervix wassubmitted, please contact the testing laboratoryfor alternative testing options.For additional information, please refer tohttp://education.mapp2link/faq/OCO969j9(This link if provided for information/educational purposes only.)THIS TEST WAS PERFORMED AT:[facility] [place] [phone] STILES MD HPV mRNA E6/E7 [facility] HPV 16 RNA [facility] HPV 18/45 RNA [facility] 08/04/2023 10:3 7 AM EST 08/05/2023 11:40 AM EST Suzanne Hidalgo CNM LAB CYTOLOGY ORDERABLES F inal Result [facility] [address] [place] [phone] * Pap Smear (08/04/2023 10:37 AM EST) 08/04/2023 10:3 7 AM EST 08/05/2023 11:40 AM EST Narrative [facility] - 08/14/2023 4:13 PM EST ----- ------- Name: Sapna Juan I ? Age/Sex: 58/F ? : 1965 Unit#: [id number] ?? Attend Dr: SUZANNE HIDALGO CNM ?Re08/04/23 ?Status: DEP REF ? Location: HO.HHCLNP ? Disch: ? ----- ------- SPEC : [id number] ?RECD: 08/05/23-1140 ? STATUS: ??SOUT ? REQ NUM: [id number] ? JOHAN: 08/04/23-1037 ? SUBM DR: SUZANNE HIDALGO CNM ? ENTERED: ??08/05/23-3 ?SP TYPE: [...] 66, 68) ?? HPV testing performed by [facility], [place], [place]. ??See reference laboratory ?? portion of the EMR for entire report. ?Clinical Information LMP: Postmenopausal Previous PAP test: WNL ? Material Received ?? ThinPrep-Cervical ----- ------- Signed (signature on file) NICK Sena (ASCP) 08/14/23 [id number] ? ----- ------- ? END OF REPORT ? Suzanne Hidalgo [facility] LAB CYTOLOGY ORDERABLES F inal Result Performing Organization Address [facility] Co de Phone Number [facility] [address] [place] [address] [phone] * Colonoscopy (02/06/2022) [facility] Colonoscopy Normal Normal Historical Provider HEALTH MAINTENANCE Final Result * HEPATITIS C AB W/REFL TO HCV RNA, QN, PCR (04/24/2021 10:45 AM EDT) [facility] HEPATITIS C ANTIBODY NON-REACT [facility] NON-REACT [facility] INDEX 0.03 <1.00 [facility] Comment: ?? HCV antibody was non-reactive. There is no laboratory ?? evidence of HCV infection. ?? In most cases, no further action is required. However, if recent HCV exposure is suspected, a test for HCV RNA (test code 99147) is suggested. ?? For additional information please refer to http://education.Ecwid.[employer]/faq/PLC22i5 (This link is being provided for informational/ educational purposes only.) ?? 04/24/2021 10:4 5 AM EDT Chely Null MD HISTORICAL/NON ORDERA BLE LABS Final Result Performing Organization Address [facility]/ZIP Co de Phone Number [facility] [address] * HIV 1/2 ANTIGEN/ANTIBODY,FOURTH GENERATION W/RFL (04/24/2021 10:45 AM EDT) [facility] HIV-1/2 ANTIGEN AND ANTIBODIES, 4TH GENERATION W/ REFLEX NON-REACT SHANITA NON-REACT SHANITA [facility] Comment: HIV-1 antigen and HIV-1/HIV-2 [...] ? For additional information please refer to http://education.mapp2link/faq/RCT790 (This link is being provided for informational/ educational purposes only.) ? The performance of this assay has not been clinically validated in patients less than 2 years old. ?? 04/24/2021 10:4 5 AM EDT Chely Null MD LAB BLOOD ORDERABLES Final Result [facility] [address] from Last 3 Months or Most Recently Relevant to Health Maintenance Insurance HSN FULL [facility] C3 DENTAL-[facility] MEDICAID STAND ADULT Care Teams Camp Counselor Relationship Specialty Start Date End Date Sandra Currie ANP [address] [place] [phone] PCP - General Family Medicine 04/30/21
== END 2025-02-15 12:18 | disposition home or self-care (01) ==
LOC: HO.HHCL 12:17
PROVIDERS: Nurse Practitioner Primary Care; Visit Provider Internal Medicine Hypertension Specialist
DX: I10 Essential (primary) hypertension (principal); E87.6 Hypokalemia; E21.3 Hyperparathyroidism, unspecified; E11.42 Type 2 diabetes mellitus with diabetic polyneuropathy; I70.1 Atherosclerosis of renal artery; E87.0 Hyperosmolality and hypernatremia
CPT/HCPCS: 36415; 80048; 80061; 81001; 82306; 82310; 84520

== ENCOUNTER 2025-04-27 10:32 | Outpatient (REF) | payer MEDICAID, SELFPAY ==
--- OUTSIDE RECORDS SUMMARY | 2025-04-27 11:50 | XMS_ITS | Clinical Summary ---
Author Organization [facility] Address [address] [place] [address] Care Team Providers Care Manager Of Compliance Name Role Phone Unavailable Primary Care Provider [...] Vaccine ( - 2023-2 5 season) 2024 Depression Screening 09/08/2024 Influenza Vaccine (#1) 2025 RSV Immunization Adult Patie nts (1 - 1-dose 75+ series) 2041 HIB Vaccines Aged Out No longer eligi [...]
--- OUTSIDE RECORDS SUMMARY | 2025-04-27 11:50 | XMS_ITS | Encounter Summary ---
Author Organization [facility] Address [address] [place] [address] Phone Care Team Providers Care Dish Room Worker Name Role Phone Unavailable Primary Care Provider Unavailabl e Encounter Details Date Type Department Care Team (Latest Contact Info) Description 06/02/2019 Ancillary Orders [facility] [address] [place] [address] Chinedu Glover, DO [address] [place] [phone] Fatigue, unspecified type Social History Tobacco Use Types Packs/Day Years Used Date Smoking Tobacco: Never Assessed Comments Unknown Sex and Gender Information Value Date Recorded Sex Assigned at Not on file Legal Sex Female 3:03 PM EDT Gender Identity Not on file Sexual Orientation Not on file documented as of this encounter Plan of Treatment Not on file documented as of this encounter Results * Holter Monitor 24 Hours (06/02/2019 3:22 PM EDT) Anatomical Region Laterality Modality Heart Other Narrative 06/02/2019 5:00 PM EDT 24-hour monitor: Baseline rhythm is sinus of the minimum heart rate is 31, maximum 107, average 60 bpm, longest pause duration 2.6 seconds at 4:20 AM, presumably during hours of sleep. There are 35 PACs during the 24 hours. There is no diary returned. There are no patient event markers. Impression: Normal 24-hour monitor. No diary returned. Bradycardia during sleep. Procedure Note Mike Can MD - 06/02/2019 24-hour monitor: Baseline rhythm is sinus of the minimum heart rate is 31,maximum 107, average 60 bpm, longest pause duration 2.6 seconds at 4:20AM, presumably during hours of sleep. There are 35 PACs during the 24hours. There is no diary returned. There are no patient event markers. Impression: Normal 24-hour monitor. No diary returned. Bradycardiaduring sleep. Chinedu Glover DO [facility] ORDERABLE S Final Result documented in this encounter Visit Diagnoses Diagnosis Fatigue, unspecified type Fatigue, unspecified type documented in this encounter Additional Source Comments The information contained in this document represents components of the legal health record. It is not the complete legal health record.[facility]
[2025-04-27 12:58] LABS: Alanine Aminotransferase 35 U/L (0-31); Albumin Level 4.3 g/dL (3.5-5.0); Alkaline Phosphatase 78 U/L (39-117); Aspartate Amino Transferase 25 U/L (5-31); Cholesterol 250 mg/dL (<200); HDL Cholesterol 37 mg/dL (>40); Total Protein 7.2 g/dL (6.5-8.0); Triglycerides 574 mg/dL (<150)
[2025-04-28 08:19] LABS: HBS Num1 0.04 mIU/mL (0-7.99); HBc Num1 0.09 S/CO (0.00-0.79); HBsAGNum1 0.35 S/CO (0.00-0.99); Hepatitis B Surface Antigen Negative (Negative); ~Hepatitis B Surface Antibody NONREACTIVE (Nonreactive)
== END 2025-04-27 10:33 | disposition home or self-care (01) ==
LOC: HO.HHCL 10:32
PROVIDERS: PCP Nurse Practitioner Primary Care; Visit Provider Nurse Practitioner Primary Care
DX: Z11.59 Encounter for screening for other viral diseases (principal); E78.1 Pure hyperglyceridemia; E11.59 Type 2 diabetes mellitus with other circulatory complications; I15.2 Hypertension secondary to endocrine disorders
CPT/HCPCS: 36415; 80061; 80076; 86704; 86706; 87340

== ENCOUNTER 2025-05-02 09:41 | Outpatient (REF) | payer MEDICAID, SELFPAY ==
--- OUTSIDE RECORDS SUMMARY | 2025-05-02 10:31 | XMS_ITS | Clinical Summary ---
Author Organization [facility] Address [address] [place] [address] Care Team Providers Care Transport Coordinator Name Role Phone Unavailable Primary Care Provider [...]
--- OUTSIDE RECORDS SUMMARY | 2025-05-02 10:31 | XMS_ITS | Encounter Summary ---
Author Organization [facility] Address [address] [place] [address] Phone Care Team Providers Care Engineering Group Manager Name Role Phone Unavailable Primary Care Provider Unavailabl e Encounter Details Date Type Department Care Team (Latest Contact Info) Description 06/02/2019 Ancillary Orders [facility] [address] [place] [address] Chinedu Glover, DO [address] [place] [phone] Fatigue, unspecified type Social History Tobacco Use [...] It is not the complete legal health record.[facility]
[2025-05-02 11:10] LABS: Appearance Urine Clear; Glucose Urine UA Negative (Negative); PH 5.5 (5.0-9.0); Specific Gravity - Urine 1.020 (1.005-1.025); UMIC TRIGGER UA YES
[2025-05-02 12:08] LABS: Alanine Aminotransferase 30 U/L (0-31); Albumin Level 4.3 g/dL (3.5-5.0); Alkaline Phosphatase 78 U/L (39-117); Anion Gap 11 (12-20); Aspartate Amino Transferase 32 U/L (5-31); Blood Urea Nitrogen 16 mg/dL (9-16); Calcium 10.1 mg/dL (8.4-10.2); Carbon Dioxide 31 mmol/L (22-29); Chloride 108 mmol/L (96-108); Cholesterol 227 mg/dL (<200); Estimated Glomerular Filt Rate > 60; HDL Cholesterol 40 mg/dL (>40); Potassium 3.8 mmol/L (3.3-5.1); Sodium 146 mmol/L (135-145); Total Protein 7.2 g/dL (6.5-8.0); Triglycerides 347 mg/dL (<150)
== END 2025-05-02 09:42 | disposition home or self-care (01) ==
LOC: HO.HHCL 09:41
PROVIDERS: Internal Medicine Hypertension Specialist; PCP Nurse Practitioner Primary Care; Visit Provider Nurse Practitioner Primary Care
DX: I10 Essential (primary) hypertension (principal); I70.1 Atherosclerosis of renal artery; E87.0 Hyperosmolality and hypernatremia; E78.1 Pure hyperglyceridemia
CPT/HCPCS: 36415; 80048; 80061; 80076; 81001

== ENCOUNTER 2025-06-06 10:44 | Outpatient (AMB) | payer MEDICAID, SELFPAY ==
--- NOTE | 2025-06-06 10:47 | HO.NEPHOV ---
Vital Signs 06/06/25 10:48 06/06/25 10:58 Height 5 ft Weight 143 lb BMI 27.9 BP 156/84 H 140/70 H Blood Pressure Location Rt brachial Rt brachial Position Sitting Sitting Pulse 79 Pulse Source Pulse Oximeter Pulse Oximetry (%) 99 Oxygen Delivery Method Room Air Intake Visit Reasons: 3 F/u w/ labs Film Or Videotape Editor Required: Yes Film Or Videotape Editor Name: Valente [id number] Accompanied by: Self / Same As Patient Allergies No Known Allergies Allergy (Verified 06/06/25 10:49) Medication List - Last Reconciled 06/06/25 by Robbie Marley MD albuterol sulfate 90 mcg/actuation (ProAir HFA) 2 puffs inhalation Q4-6H PRN aspirin 81 mg PO DAILY atenolol 50 mg PO BID bimatoprost 0.01% (Lumigan) 1 drp ophthalmic (eye) BEDTIME brimonidine 0.2% 1 drp ophthalmic (eye) BID ciclopirox 8% topical BEDTIME cyanocobalamin (vitamin B-12) 1,000 mcg PO DAILY dorzolamide 2% 1 drp ophthalmic (eye) TID ferrous sulfate (FeroSul) 325 mg PO DAILY fluticasone propionate 50 mcg/actuation 1 spray intranasal BID hydrochlorothiazide 25 mg PO DAILY hydroxyzine HCl 25 mg PO QID PRN lanolin vfygeph-nt-u.pet-ceres (Minerin Creme topical) appl topical BID loratadine (Allergy Relief (loratadine)) 10 mg PO DAILY metformin 500 mg PO BID netarsudil 0.02% (Rhopressa) 1 drp ophthalmic (eye) BEDTIME omeprazole 20 mg PO DAILY potassium chloride ER 20 mEq PO DAILY triamcinolone acetonide 0.1% topical BID HPI Comments Details: Middle-aged woman with hypertension. Blood pressure has been difficult to control. She had a Doppler ultrasound which showed possible renal artery stenosis with beaded appearance suggestive of fibromuscular dysplasia. Referred for evaluation of hypertension Renal function has been stable Renal arteries evaluated by Endovascular surgery and NO ADAM was noted 12/30/24 Overall doing well. Home BP was low this and did not take meds. 02/10/25 K was low; KCL added ; HCTZ was lowered by 50% ; Doing well. 06/06/25 - The patient is a 60-year-old female presenting for a follow-up regarding HTN and ? ADAM Doppler showed 60% of right RA BP has been well controlled - The patient is taking potassium supplements as prescribed. - Reports inadequate water intake, leading to dehydration. - Reduced salt intake by adding less salt to meals. [facility] Medical History Constipation Menorrhagia Heartburn Microscopic hematuria Hemorrhoids HTN (hypertension) Anemia GERD (gastroesophageal reflux disease) Social History Alcohol intake: never Physical Exam Vital Signs: Last Vital Signs Pulse 79 06/06/25 10:48 BP 156/84 H 06/06/25 10:48 Pulse Ox 99 06/06/25 10:48 Oxygen Delivery Method Room Air 06/06/25 10:48 BMI result Body Mass Index 27.9 Comfortable Neck supple no JVD. Lungs entry equal no rales. Heart S1-S2 heard no gallop or rub. Abdomen soft nontender. Neuro alert awake oriented. No asterixis. Extremities no edema. Results Reviewed Nephrology Results: Sodium, (135-145) 146 mmol/L H 05/02/25 Potassium, (3.3-5.1) 3.8 mmol/L 05/02/25 Chloride, (96-108) 108 mmol/L 05/02/25 Carbon Dioxide, (22-29) 31 mmol/L H 05/02/25 BUN, (9-16) 16 mg/dL 05/02/25 Creatinine, (0.5-1.4) 0.84 mg/dL 05/02/25 Calcium, (8.4-10.2) 10.1 mg/dL 05/02/25 PTH Intact, (8.7-77.1) 120.8 pg/mL H 09/17/24 Urine Protein, (Neg-Trace) Negative mg/dL 05/02/25 Urine Creatinine 81.38 mg/dL 09/17/24 Assessment & Plan Assessment & Plan (1) HTN (hypertension): Code(s): I10 - Essential (primary) hypertension Category: Medical (2) Renal artery stenosis: Code(s): I70.1 - Atherosclerosis of renal artery Category: Medical (3) Hypernatremia: Code(s): E87.0 - Hyperosmolality and hypernatremia Category: Medical Plan Middle-aged woman with hypertension. Renal function stable. Doppler ultrasonogram revealed a possible renal artery stenosis with beaded appearance. (??) No ADAM by doppler done by Endovascular surgery -Sep 2023 at [facility] Mild hypernatremia due to free water deficit Plan Blood pressure is better Keep HCTZ along with KCL The use of HCTZ should help corect hypernatremia Increase PO Water intake Keep her on a low-sodium diet. Orders: Orders Basic Metabolic Panel 3 Months I10 - Essential (primary) hypertension, I70.1 - Atherosclerosis of renal artery UA and rflx microscopic 3 Months I10 - Essential (primary) hypertension, I70.1 - Atherosclerosis of renal artery Coding Level of Care Code Est Pt Level 4 (41417) Diagnoses HTN (hypertension) I10 Renal artery stenosis I70.1 Hypernatremia E87.0
[2025-06-06 10:48] VITALS: BP 156/84; PULSE 79; O2SAT 99; BMI 27.9
[2025-06-06 10:58] VITALS: BP 140/70
--- OUTSIDE RECORDS SUMMARY | 2025-06-06 12:14 | XMS_ITS | Encounter Summary ---
Author Organization [employer] Address [address] [place] [address] Care Team Providers Care Glass Science Engineer Name Role Phone Sandra Currie Primary Care Provider [phone] Encounter Details Date Type Department Care Team (Late st Contact Info) Description 12/09/2022 Orders Only [facility] [address] [place] [address] Susannah Burnett LPN Social History Tobacco Use [...] Care Team (Late st Contact Info) Description 07/15/2025 2:15 PM EST Office Visit [facility] [address] [place] [address] Sandra Currie ANP [address] [place] [address] 08/16/2025 11:30 AM EST Office Visit [facility] [address] [place] [address] Suzanne Carbone CNM [address] [place] [address] 09/22/2025 1:00 PM EST Office Visit [facility] [address] [place] [address] Susan Hinson OD [address] [place] [address] documented as of this encounter Visit Diagnoses Not on filedocumented in this encounter Care Teams Glass Science Engineer Relationship Specialty Start Date End Date Sandra Currie ANP [address] [place] [address] PCP - General Family Medicine 04/30/21 documented as of this encounter
--- OUTSIDE RECORDS SUMMARY | 2025-06-06 12:14 | XMS_ITS | Encounter Summary ---
Author Organization [facility] Address [address] [place] [address] Phone Care Team Providers Care Sales & Service Associate Name Role Phone Unavailable Primary Care Provider Unavailabl e Encounter Details Date Type Department Care Team (Latest Contact Info) Description 06/02/2019 Ancillary Orders [facility] [address] [place] [address] Chinedu Glover, DO [address] [place] [phone] Fatigue, unspecified type Social History Tobacco Use [...] It is not the complete legal health record.[facility]
--- OUTSIDE RECORDS SUMMARY | 2025-06-06 12:14 | XMS_ITS | Clinical Summary ---
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 2.5 mL 12/09/19 24 Active glucose blood (FREESTYLE LITE) test stripIndications:T ype 2 diabetes mellitus with hyperglycemia, unspecified whether long-term insulin use (HCC) Use to check fingerstick blood sugar daily 50 each 03/18/20 24 Active FreeStyle lancetsIndications :Type 2 diabetes mellitus with hyperglycemia, unspecified whether long-term insulin use (HCC) 1 each by Other route Once per day. 60 each 03/18/20 24 Active Alcohol Swabs padsIndications:Ty pe 2 diabetes mellitus with hyperglycemia, unspecified whether long-term insulin use (HCC) 1 each if needed (to clean skin). 100 each 11 03/18/20 24 Active aspirin 81 MG chewable tabletIndications: Healthcare maintenance Take 1 tablet daily 90 tablet 3 03/18/20 24 Active atenolol (Tenormin) 50 MG tabletIndications: Hypertension associated with diabetes (HCC) TAKE 1 TABLET BY MOUTH TWICE DAILY 180 tablet 1 06/22/20 24 Active Skin Protectants, Misc. (Minerin Creme) creamIndications:D ry skin Apply to skin as needed twice daily 454 g 2 09/17/19 25 Active fluticasone (Flonase) 50 MCG/ACT nasal sprayIndications:N [...] MORNING 90 tablet 1 12/30/19 25 Active Ferrous Sulfate (iron) 325 (65 Fe) MG tabletIndications: Iron deficiency anemia, unspecified iron deficiency anemia type TAKE 1 TABLET BY MOUTH EVERY DAY WITH ORANGE JUICE OR VITAMINA C 90 tablet 3 12/30/19 25 Active metFORMIN XR (Glucophage-XR) 500 MG 24 hr tabletIndications: Type 2 diabetes mellitus with hyperglycemia, unspecified whether long-term insulin use (HCC) TAKE 1 TABLET BY MOUTH TWICE DAILY WITH FOOD 180 tablet 3 12/30/19 25 Active omeprazole (PriLOSEC) [address] capsule TAKE 1 CAPSULE BY MOUTH EVERY DAY BEFORE A MEAL 90 capsule 1 02/24/20 25 Active cholecalciferol (Vitamin D-3) 25 MCG (1000 UT) capsuleIndications :Low vitamin D level Take 1 capsule (25 mcg) by mouth Once per day. 90 capsule 1 02/24/20 25 025 Active atorvastatin (Lipitor) 80 MG tabletIndications: Hypertension associated with diabetes (HCC) Take 1 tablet (80 mg) by mouth Once per day. 90 tablet 1 03/28/20 25 Active hydroCHLOROthiazid e (HYDRODiuril) 25 MG tablet 25 mg Once per day. Active nortriptyline (Pamelor) 25 MG capsuleIndications :Neuropathic pain of lower extremity Take 1 capsule (25 mg) by mouth at bedtime. 90 capsule 04/14/20 25 026 Active Active Problems Problem Noted Date Diagnosed Date Hypertriglyceridemia 03/28/2025 Advanced open-angle glaucoma, severe stage 12/14 Overview (12/15/2023): w/ sx poor vision and visual field defects. She is followed closely by Dr. Edge and is on multiple medications. Eye exam [facility] 06/2023, no retinopathy. 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 Encounters Date Type Department Care Team Description 05/31/2025 Telephone [facility] [address] [place] [address] Carrie Marcano MA 05/18/[address] [address] Sandra Currie ANP nov recall 05/12/[address] [address] Sandra Currie ANP 05/10/2025 10:30 AM EDT Telemedicine [address] [address] Oralia Mckeon RN Primary hypertension 05/10/2025 Travel 05/03/2025 Results Follow-Up [address] [address] Sandra Currie ANP Lipid Panel, Standard, Hepatic Function Panel 05/02/2025 11:30 AM EDT Clinical Support [address] [address] Dee Grant RN Primary hypertension 05/02/2025 Orders Only GENERIC EXTERNAL DATA DEPARTMENT Provider, Generic External Data 05/02/2025 Travel 04/29/2025 Orders Only [address] [address] Sandra Currie ANP Hypertriglyceridemia (Primary Dx) 04/28/[address] [address] Oralia Mckeon RN Error (VOID this visit) 04/28/[address] [address] Oralia Mckeon RN Results 04/27/2025 10:00 AM EDT Office Visit [address] [address] Karin Gómez NP Pre-op examination (Primary Dx) 04/27/2025 Results Follow-Up [address] [address] Sandra Currie ANP POCT Glucose, POCT HGB A1C, Lipid Panel, Standard, Additional followed-up results: 5 04/27/2025 Orders Only [address] [address] Sandra Currie ANP Hypertriglyceridemia (Primary Dx) 04/27/2025 Travel 04/26/[address] [address] Yadira Tamez [place] CHARTPREP 04/26/[address] [address] Sandra Currie ANP 04/14/2025 Refill [facility] [address] [place] [address] Sandra Currie ANP Neuropathic pain of lower extremity 03/31/[address] [address] Sandra Currie ANP Addition to PT1 03/28/2025 11:15 AM EDT Office Visit [address] [address] Sandra Currie ANP Hypertension associated with diabetes (CMS/HCC) (Primary Dx); Hypertriglyceridemia; Peripheral axonal neuropathy; History of lacunar cerebrovascular accident; Screening mammogram for breast cancer; Need for hepatitis B screening test; Tinea pedis of both feet; Screening for colon cancer 03/28/2025 Travel 03/25/2025 Telephone [facility] [address] [place] [address] Sandra Currie ANP CHART PREP 03/21/2025 Patient Outreach [facility] [address] [place] [address] Sandra Currie ANP Pre-visit Planning (SDOH negative. Tobacco screening negative. ) from Last 3 Months Immunizations Immunization Administration [...] What is your housing situation today? I have toby villarreal 03/21/[address] you li ve. Do you have problems with any of the following? None of the above 03/21/2025 Food Insecurity Answer Date Recorded Within the past 12 months, y ou worried that your food would run out before you got money to buy more: Never True 03/21/2025 Within the past 12 months,th e food you bought just didn't last and you didn't have enough money to get more: Never True Transportation Answer Date Recorded In the past 12 months, has l ack of transportation kept you from medical appts, meetings, work or from getting things needed for daily living? No 03/21/2025 Utilities Answer Date Recorded In the past 12 months, has t he electric, gas, oil or water company threatened to shut off services in your home? No 03/21/2025 Depression Answer Date Recorded Patient Health Questionnaire-2 [...] Sign Reading Time Taken Comments Blood Pressure 128/80 05/02/2025 11:31 AM EDT Pulse 86 05/02/2025 11:31 AM EDT Temperature 36.8 C (98.3 F) 04/27/2025 9:52 AM EDT Respiratory Rate 16 05/02/2025 11:31 AM EDT Oxygen Saturation 99% 05/02/2025 11:31 AM EDT Inhaled Oxygen Concentration - - Weight 64 kg (141 lb 3.2 oz) 04/27/2025 9:52 AM EDT Height 152.4 cm (5') 04/27/2025 9:52 AM EDT Body Mass Index 27.58 04/27/2025 9:52 AM EDT Plan of Treatment Upcoming Encounters Date Type Department Care Team (Late st Contact Info) Description 07/15/2025 2:15 PM EST Office Visit [facility] [address] [place] [address] Sandra Currie ANP [address] [place] [address] 08/16/2025 11:30 AM EST Office Visit [facility] [address] [place] [address] Tona Kelly, CNM [address] [place] [address] 09/22/2025 1:00 PM EST Office Visit [facility] [address] [place], [place] [phone] Sravan, Susan, OD [address] [place] [address] Health Maintenance Due Date Last Done Comments CT Colonography 1966 FIT 1966 Sigmoidoscopy 1966 Hepatitis B Vaccines (1 of 3 - 19+ 3-dose series) 1985 Dental Prophylaxis 07/23/2018 01/19/2018, 1 09/20/2016, 01/14/2017, Additional history exists Dental Oral Exam 08/23/2018 02/20/2018, , 01/14/2017, Additional history exists Dental X-Ray: Bitewings 02/21/2019 02/21/20 18, 01/14/2017, 03/29/2016 Dental X-Ray: Full Mouth 04/08/2023 04/07/2020, 03/09 Mammogram 02/09/2025 02/10/2024, 0503/2024, 01/13/2024, Additional history exists COVID-19 Vaccine (2024- season) 2025 10/09/2021, 01/27/2021, 12/30/2020 Influenza Vaccine (#1) 2025 , 07/22/2023, 07/03/2021, Additional history exists Diabetes: Hemoglobin A1C 06/28/2025 025, 09/17/2024, 03/18/2024, Additional history exists Eye Exam 06/30/2025 06/30/2023, 06/09, 06/30/2023, Additional history exists Alcohol/Substance Use Screening 09/17/2025 09/17/2024 Depression Screening 09/17/2025 09/17/2024, 09/17/19 Diabetes: Urine Protein Screening 09/17/2025 09/17/2024, 10/02/2021, 03/03/2020 SDOH Screening 03/21/2026 03/21/2025 Diabetes: Foot Exam 03/28/2026 03/28/2025, 03/28/2025, 03/28/2025, Additional history exists Disability Screening 03/28/2026 03/28/2025 Lipid Panel 05/02/2026 05/02/2025, 08, 02/15/2025, Additional history exists Tobacco Screening 05/02/2026 05/02/2025 FOBT 05/03/2026 05/03/2025, 02/06/2022 Colorectal Cancer Screening 05/03/2028 FIT DNA/Cologuard 05/03/2028 05/03/2025, 02/06/2022 Cervical Cancer Screening 08/04/2028 HPV/Cotest 08/04/2028 08/04/2023, 08/02/2020 Pap Smear 08/04/2028 08/04/2023, 08/02/2020 Colonoscopy 02/07/2032 02/06/2022 DTaP/Tdap/Td Vaccines (3 - Td or Tdap) 09/17/2034 09/17/2024, 02/10/2014, 09/02/2002 RSV Patients and Patients Aged 60 years or older (1 - 1-dose 75+ series) 2041 Zoster Vaccines Completed 05/05/2020, 07/19/2019 HIV Screening Completed 04/24/2021 Hepatitis C Screening Completed 04/24/2021 Pneumococcal Vaccine: 50+ Years Completed 12/15/2023 HIB Vaccines Aged Out No longer eligi [...] Procedure Name Priority Date/Time Associated Diagnosis Comments LAB COLOGUARD COLON CANCER SCREEN Routine 05/03/2025 10:00 AM EDT Screening for colon cancer BASIC METABOLIC PANEL Routine 05/02/2025 9:45 AM EDT URINALYSIS, COMPLETE Routine 05/02/2025 9:45 AM EDT HEPATIC FUNCTION PANEL Routine 05/02/2025 9:45 AM EDT Hypertriglyceridemi a LIPID PANEL, STANDARD Routine 05/02/2025 9:45 AM EDT Hypertriglyceridemi a HEPATIC FUNCTION PANEL Routine 04/27/2025 10:49 AM EDT Hypertriglyceridemi a HEPATITIS B SURFACE ANTIBODY, QUALITATIVE Routine 04/27/2025 10:49 AM EDT Need for hepatitis B screening test HEPATITIS B SURFACE ANTIGEN, EIA Routine 04/27/2025 10:49 AM EDT Need for hepatitis B screening test HEPATITIS B CORE AB TOTAL Routine 04/27/2025 10:49 AM EDT Need for hepatitis B screening test LIPID PANEL, STANDARD Routine 04/27/2025 10:49 AM EDT Hypertension associated with diabetes (CMS/HCC) Hypertriglyceridemi a POCT GLYCATED HEMOGLOBIN, TOTAL Routine 03/28/2025 12:01 PM EDT Hypertension associated with diabetes (CMS/HCC) POCT GLUCOSE Routine 03/28/2025 12:01 PM EDT Hypertension associated with diabetes (CMS/HCC) ALBUMIN, RANDOM URINE W/CREATININE Routine 09/17/2024 [...] Recently Relevant to Health Maintenance Results * Cologuard?? colon cancer screening (05/03/2025 10:00 AM EDT) Cologuard Result Negative Negative 05/09/20 25 5:20 AM EDT [facility] (CLIA #:[id number]) Comment: The Cologuard (TM) test was performed on this specimen. NEGATIVE TEST RESULT. A negative Cologuard result indicates a low likelihood that a colorectal cancer (CRC) or advanced adenoma (adenomatous polyps with more advanced pre-malignant features) is present. The chance that a person with a negative Cologuard test has a colorectal cancer is less than 1 in 1500 (negative predictive value >99.9%) or has an advanced adenoma is less than 5.3% (negative predictive value 94.7%). These data are based on a prospective cross-sectional study of 10,000 individuals at average risk for colorectal cancer who were screened with both Cologuard and colonoscopy. (Miguel Sotelo al, N Engl J Med 2014;370(14):1286- 1297) The normal value (reference range) for this assay is negative. COLOGUARD RE-SCREENING RECOMMENDATION: Periodic colorectal cancer screening is an important part of preventive healthcare for asymptomatic individuals at average risk for colorectal cancer. Following a negative Cologuard result, the [place] [employer] and U.S. Multi-Society Task Force screening guidelines recommend a Cologuard re-screening interval of 3 years. References: [place] [employer] Guideline for Colorectal Cancer Screening: https://www.cancer.org/cancer/sjwvp-cikhyl-zjjzse/uzrfdmlal-eycgwygwf-djmjqdq/ac s-rec ommendations.html.; Gregor DK, Nba SANABRIA, Cheko ZhaoK, Colorectal Cancer Screening: Recommendations for Physicians and Patients from the U.S. Multi-Society Task Force on Colorectal Cancer Screening , Am J Gastroenterology 2017; 112:4128-5425. TEST DESCRIPTION: Composite algorithmic analysis of stool DNA-biomarkers with hemoglobin immunoassay. Quantitative values of individual biomarkers are not reportable and are not associated with individual biomarker result reference ranges. Cologuard is intended for colorectal cancer screening of adults of either sex, 45 years or older, who are at average-risk for colorectal cancer (CRC). Cologuard has been approved for use by the U.S. FDA. The performance of Cologuard was established in a cross sectional study of average-risk adults aged 50-84. Cologuard performance in patients ages 45 to 49 years was estimated by sub-group analysis of near-age groups. Colonoscopies performed for a positive result may find as the most clinically significant lesion: colorectal cancer [4.0%], advanced adenoma (including sessile serrated polyps greater than or equal to 1cm diameter) [20%] or non- advanced adenoma [31%]; or no colorectal neoplasia [45%]. These estimates are derived from a prospective cross-sectional screening study of 10,000 individuals at average risk for colorectal cancer who were screened with both Cologuard and colonoscopy. (Miguel Arteaga, N Engl J Med 2014;370(14):1261-5046.) Cologuard may produce a false negative or false positive result (no colorectal cancer or precancerous polyp present at colonoscopy follow up). A negative Cologuard test result does not guarantee the absence of CRC or advanced adenoma (pre-cancer). The current Cologuard screening interval is every 3 years. ([place] [employer] and U.S. Multi-Society Task Force). Cologuard performance data in a 10,000 patient pivotal study using colonoscopy as the reference method can be accessed at the following location: www.JinggaMall.com/results. Additional description of the Cologuard test process, warnings and precautions can be found at [email or web address].com. Stool specimen (specimen) 05/03/2025 10:00 AM EDT 05/05/2025 1:59 PM EDT [facility] LAB MOLECULAR DIAGNOSTICS ORDERA BLES Final Result [facility] (CLIA #:[id number]) [address] [place] [address], * (ABNORMAL) Urinalysis Complete (05/02/2025 9:45 AM EDT) Color Urine Yellow [facility] Appearance Urine Clear [facility] PH 5.5 5.0 - 9.0 [facility] Glucose Urine UA Negative Negative mg/dL [facility] Urine Blood Negative Negative [facility] Specific [place] - Urine 1.020 1.005 - 1.025 [facility] Urine Protein Negative Neg-Trace mg/dL [facility] Urine Ketones Negative Negative mg/dL [facility] Nitrite Urine Negative Negative [facility] Leukocyte Esterase Urine Large (3+)(A) Negative [facility] RBC Urine 0-2 0 - 2 /HPF [facility] Urine WBC 21-50(A) 0 - 5 /HPF [facility] Urine Squamous Epithelial Cell 6-10 0 - 2 /HPF [facility] Urine Bacteria Trace None Seen [facility] Hyaline Casts, Urine 0-2 0 - 2 /LPF [facility] 05/02/2025 9:45 AM EDT 05/02/2025 11:00 AM EDT Generic External Data Provider LAB URINE ORDERAB LES Final Result Performing Organization Address [facility] Co de Phone Number [facility] [address] [place] [phone] * (ABNORMAL) Hepatic Function Panel (05/02/2025 9:45 AM EDT) Only the most recent of2 resultswithin the time period is included. Bilirubin, Total 0.4 0.0 - 1.0 mg/dL [facility] Bilirubin, Direct 0.1 0.0 - 0.5 mg/dL [facility] Aspartate Amino Transferase 32(H) 5 - 31 U/L [facility] Alanine Aminotransferase 30 0 - 31 U/L [facility] Total Protein 7.2 6.5 - 8.0 g/dL [facility] Albumin Level 4.3 3.5 - 5.0 g/dL [facility] Alkaline Phosphatase 78 39 - 117 U/L [facility] Blood Venous blood specimen / Unknown 05/02/2025 9:45 AM EDT 05/02/2025 11:25 AM EDT [facility] LAB BLOOD ORDERABLES Final Resul t Performing Organization Address [facility] Co de Phone Number [facility] [address] [place] [phone] * (ABNORMAL) Lipid Panel, Standard (05/02/2025 9:45 AM EDT) Only the most recent of2 resultswithin the time period is included. Triglycerides 347(H) <150 mg/dL [facility] Comment:Desirable Triglyceri de: less than 150 mg/dLBorderline High Triglyceride 150-199 mg/dLHigh Triglyceride: 200-499 mg/dLVery High Triglyceride: greater than or equal to 5OO mg/dL Cholesterol 227(H) <200 mg/dL [facility] Comment:Desirable Cholestero l: less than 200 mg/dLBorderline High Cholesterol: 200-239 mg/dLHigh Cholesterol: greater than 239 mg/dL LDL Cholesterol Calculated 118(H) <100 mg/dL [facility] Comment:Desirable LDL: less than 100 mg/dLNear Optimal/Above Optimal LDL: 110- 129 mg/dLBorderline High LDL: 130-159 mg/dLHigh LDL: 160-189 mg/dLVery High LDL: greater than or equal to 190 mg/dL HDL Cholesterol 40(L) >40 mg/dL [facility] Comment:Desirable HDL: great er than 40 mg/dL Note: This HDL assay may give artificially low results in patients with liver disease. Blood Venous blood specimen / Unknown 05/02/2025 9:45 AM EDT 05/02/2025 11:25 AM EDT [facility] LAB BLOOD ORDERABLES Final Resul t [facility] [address] [place] [phone] [phone] * (ABNORMAL) Basic Metabolic Panel (05/02/2025 9:45 AM EDT) Sodium 146(H) 135 - 145 mmol/L [facility] Potassium 3.8 3.3 - 5.1 mmol/L [facility] Chloride 108 96 - 108 mmol/L [facility] Carbon Dioxide 31(H) 22 - 29 mmol/L [facility] Anion Gap 11(L) 12 - 20 [facility] Urea Nitrogen (BUN) 16 9 - 16 mg/dL [facility] Creatinine, Serum 0.84 0.5 - 1.4 mg/dL [facility] Estimated Glomerular Filt Rate >60 [facility] Comment:Chronic Kidney Disea se: Estimated GFR < 60 mL/min/1.26y1Wisytu Kidney Disease: Estimated GFR < 15 mL/min/1.73m2 Glucose 116(H) 60 - 115 mg/dL [facility] Calcium 10.1 8.4 - 10.2 mg/dL [facility] 05/02/2025 9:45 AM EDT 05/02/2025 11:25 AM EDT Generic External Data Provider LAB BLOOD ORDERAB LES Final Result Performing Organization Address [facility] Co de Phone Number [facility] [address] [place] [phone] * Hepatitis B surface antigen, EIA (04/27/2025 10:49 AM EDT) Hepatitis B Surface Ag Negative Negative [facility] Blood Venous blood specimen / Unknown 04/27/2025 10:49 AM EDT 04/27/2025 12:24 PM EDT Sandra Currie ANP LAB BLOOD ORDERABLES Final Resul t Performing Organization Address [facility] Co de Phone Number [facility] [address] [place] [phone] * Hepatitis B Core Antibody, Total (04/27/2025 10:49 AM EDT) Hepatitis B Core Antibody Nonreactive Nonreactive [facility] Blood Venous blood specimen / Unknown 04/27/2025 10:49 AM EDT 04/27/2025 12:24 PM EDT Sandra Currie ANP LAB BLOOD ORDERABLES Final Resul t Performing Organization Address [facility] de Phone Number [facility] [address] [place] [phone] * Hepatitis B Surface Antibody, Qualitative (04/27/2025 10:49 AM EDT) ~Hepatitis B Surface Antibody NONREACTIVE Nonreactive [facility] Comment:Nonreactive: < 8.00 mIU/mL Blood Venous blood specimen / Unknown 04/27/2025 10:49 AM EDT 04/27/2025 12:24 PM EDT us Sandra WEISS LAB BLOOD ORDERABLES Final Resul t [facility] [address] [place] [phone] * (ABNORMAL) POCT HGB A1C (03/28/2025 12:01 PM EDT) Hemoglobin A1C 6.1(A) 4.0 - 5.7 % QC Media Lot # [id number] Lot# Expiration Date Blood 03/28/2025 12:0 1 PM EDT us Sandra Currie ANP POINT OF CARE TEST ENTER/EDIT OR DERABLES Final Result * POCT Glucose (03/28/2025 12:01 PM EDT) Glucose Blood, POC 131 60 - 200 mg/dL [employer] Lot # [id number] Lot# Expiration Date 012,450 Blood Capillary blood specimen / Unknown 03/28/2025 12:01 PM EDT us Sandra Currie ANP POINT OF CARE TEST ENTER/EDIT OR DERABLES Final Result * Albumin, Random Urine W/Creatinine (09/17/2024 11:06 AM EST) Creatinine, Urine 81.38 mg/dL [facility] Microalbumin Urine 11.0 mg/L [facility] Microalbum Creatinine Ratio Ur 13.5 <30 ug/mg cr [facility] Comment:Albumin/Creatinine R at Reference Ranges: Normal: < 30 ug/mg creatinine Microalbuminuria: 30 - 300 ug/mg creatinineClinical Albuminuria: > 300 ug/mg creatinine Urine (Urine, Random) 09/17/2024 11:06 AM EST 09/17/2024 12:58 PM EST Sandra WEISS LAB URINE ORDERABLES Final Resul t Performing Organization Address City/[facility]/ZIP Co de Phone Number [facility] [address] [place] [address] [phone] * Mammography (02/10/2024 10:56 AM EDT) Mammogram BIRADS 1 Normal, Abnormal, BIRADS 1 , BIRADS 2 Comment:1 year follow up Anatomical Region Laterality Modality Other Historical Provider HEALTH MAINTENANCE Final Result * HPV mRNA E6/E7 w/Reflex to HPV Genotypes 16, 18/45 (08/04/2023 10:37 AM EST) HPV nRNA E6/E7 Not Detected Not Detected [facility] Comment:Methodology: Transcr iption-Mediated AmplificationThis assay detects E6/E7 viral messenger RNA (mRNA) from 14high-risk HPV types (16,18,31,33,35,39,45,51,52,56,58,59,66,68).Cervical sources are required for HPV testing.If a vaginal source from a patient who has had atotal hysterectomy with removal of cervix wassubmitted, please contact the testing laboratoryfor alternative testing options.For additional information, please refer [email or web address].P[employer]/faq/MZB607v4(This link if provided for information/educational purposes only.)THIS TEST WAS PERFORMED AT:[employer] [place] [phone] STILES MD HPV mRNA E6/E7 TNP [facility] HPV 16 RNA [facility] HPV 18/45 RNA [facility] 08/04/2023 10:3 7 AM EST 08/05/2023 11:40 AM EST Kelly GREGORIO LAB CYTOLOGY ORDERABLES F inal Result [facility] [address] [place] [phone] * Pap Smear (08/04/2023 10:37 AM EST) 08/04/2023 10:3 7 AM EST 08/05/2023 11:40 AM EST [facility] LABS - 08/14/2023 4:13 PM EST ----- ------- Name: Sapna Juan I Age/Sex: 58/F : 1965 Unit#: [id number] Attend Dr: KELLY HIDALGO CNM Re08/04/23 Status: DEP REF Location: HO.HHCLNP Disch: ----- ------- SPEC : [id number] RECD: 08/05/23-1140 STATUS: DEJON PICKARD NUM: [id number] JOHAN: 08/04/23-1037 [facility] DR: KELLY HIDALGO CNM ENTERED: 08/05/23-1323 SP TYPE: Pap Smr OTHR : ORDERED: Pap Smear Interpretation Satisfactory for evaluation. Mild inflammation. Negative for intraepithelial lesion or malignancy. HPV mRNA E6/E7: NOT DETECTED This assay detects E6/E7 viral messenger RNA (mRNA) from 14 high-risk HPV types (16, 18, 31, 33, 35, 39, 45, 51, 52, 56, 58, 59, 66, 68) HPV testing performed by [facility] [place]. See reference laboratory portion of the EMR for entire report. Clinical Information LMP: Postmenopausal Previous PAP test: 2019, WNL Material Received ThinPrep-Cervical ----- ------- Signed (signature on file) NICK Sena (ASCP) 08/14/23 1613 ----- ------- END OF REPORT Kelly GREGORIO LAB CYTOLOGY ORDERABLES F inal Result [facility] [address] [place] [phone] * Colonoscopy (02/06/2022) [facility] Colonoscopy Normal Normal Historical Provider HEALTH MAINTENANCE Final Result * HEPATITIS C AB W/REFL TO HCV RNA, QN, PCR (04/24/2021 10:45 AM EDT) [facility] HEPATITIS C ANTIBODY NON-REACT SHANITA NON-REACT SHANITA [facility] INDEX 0.03 <1.00 [facility] Comment: HCV antibody was non-reactive. There is no laboratory evidence of HCV infection. In most cases, no further action is required. However, if recent HCV exposure is suspected, a test for HCV RNA (test code 49944) is suggested. For additional information please refer to http://education.[place] CK1.TrueFacet/faq/YWW25l4 (This link is being provided for informational/ educational purposes only.) 04/24/2021 10:4 5 AM EDT Chely Null MD HISTORICAL/NON ORDERA BLE LABS Final Result Performing Organization Address [facility] Co de Phone Number [facility] [address] * HIV 1/2 ANTIGEN/ANTIBODY,FOURTH GENERATION W/RFL (04/24/2021 10:45 AM EDT) HIV-1/2 ANTIGEN AND ANTIBODIES, 4TH GENERATION W/ REFLEX NON-REACT SHANITA NON-REACT SHANITA [facility] Comment: HIV-1 antigen and HIV-1/HIV-2 antibodies were not detected. There is no laboratory evidence of HIV infection. PLEASE NOTE: This information has been disclosed to you from records whose confidentiality may be protected by state law. If your state requires such protection, then the state law prohibits you from making any further disclosure of the information without the specific written consent of the person to whom it pertains, or as otherwise permitted by law. A general authorization for the release of medical or other information is NOT sufficient for this purpose. For additional information please refer to http://LocalEats.[place] CK1.TrueFacet/faq/HVI899 (This link is being provided for informational/ educational purposes only.) The performance of this assay has not been clinically validated in patients less than 2 years old. 04/24/2021 10:4 5 AM EDT Chely Null MD LAB BLOOD ORDERABLES Final Result Performing Organization Address [facility] de Phone Number [facility] [address] from Last 3 Months or Most Recently Relevant to Health Maintenance Insurance [facility] C3 DENTAL-[facility] MEDICAID STAND ADULT Care Teams Drop Wire Stringer Relationship Specialty Start Date End Date Sandra Currie ANP [address] [place] [id number] PCP - General Family Medicine 04/30/21
--- OUTSIDE RECORDS SUMMARY | 2025-06-06 12:15 | XMS_ITS | Encounter Summary ---
Author Organization [employer] Address [address] [facility] 7t [place] [address] Care Team Providers Care Securities Broker Name Role Phone Sandra Currie Primary Care Provider [phone] Encounter Details Date Type Department Care Team (Late st Contact Info) Description 02/10/2024 Abstract [facility] [address] [place], [place] [phone] Sandra Currie ANP [address] [place], [place] [phone] Social History Tobacco Use Types Packs/Day Years Used Date Smoking Tobacco: Never Passive Smoke Exposure: Never Smokeless Tobacco: Never Alcohol Use Standard Drinks/Week Comments Never 0 (1 standard drink = 0.6 oz pur e alcohol) Housing Stability Answer Date Recorded What is your housing situation today? I do not have housing (Staying with others, in a hotel, in a usp, living outside on the street, on a [...] the past 12 months, has t he [employer], [employer], oil or water [employer] threatened to shut off services in your [...] Description 07/15/2025 2:15 PM EST Office Visit [facility] [address] [place] [address] Sandra Currie ANP [address] [place] [address] 08/16/2025 11:30 AM EST Office Visit [facility] [address] [place] [address] Suzanne Carbone, CNM [address] [place] [address] 09/22/2025 1:00 PM EST Office Visit [facility] [address] [place] [address] Susan Hinson, OD [address] [place] [address] documented as of this encounter Procedures Procedure Name Priority Date/Time Associated Diagnosis Comments MAMMOGRAPHY Routine 02/10/2024 10:56 AM EDT documented in this encounter Results * Mammography (02/10/2024 10:56 AM EDT) Mammogram BIRADS 1 Normal, Abnormal, BIRADS 1 , BIRADS 2 Comment:1 year follow up Anatomical Region Laterality Modality Other Historical Provider HEALTH MAINTENANCE Final Result documented in this encounter Visit Diagnoses Not on filedocumented in this encounter Care Teams Securities Broker Relationship Specialty Start Date End Date Sandra Currie ANP [address] [place] [address] PCP - General Family Medicine 04/30/21 documented as of this encounter
--- OUTSIDE RECORDS SUMMARY | 2025-06-06 12:15 | XMS_ITS | Data Portability ---
Author Organization [place] [facility], Allergy Address [address] [facility] [address] [place] [address] Care Team Providers Care Electrical Software Engineer Name Role Phone SARA GAUTAM Primary Care Provider Assessment Encounter Date Assessment Date Assessment LastModified by Organization Details LastModified Time 06/11/2024 06/11/2024 Patient with choking sensation with some foods and feels her uvula is swollen. Reviewed the latter may be due to her snoring. Recommend repeat polysomnogram as 5 years have passed and family are still noting apneic events. Regarding the swallow. patient was encouraged to drink more water, remain upright for meals, and alternate no more than 1 Tbsp solids with no more than 1 tsp water. Also recommended to change the dosing of omeprazole to morning dosing on empty stomach 30 minutes prior to oral intake. Follow up in office after testing for results and re-evaluation. [email or web address] Not available 06/11/2024 12:58:04 Plan of Treatment Reminders Order Date Submit Date Provider Last Modified By Organization Details Last Modified Time Details Appointments None recorded. Lab None recorded. Referral None recorded. Procedures polysomno graphy, diagnosti c (PROC) 2023 [facility], [address] [place], [address], 11:36:47 Surgeries None recorded. Imaging [place], modified barium swallow study 2023 [facility], [address] [place], [address], 09:38:00 Medication Orders None recorded. Patient TargetsNo targets recorded. Patient InstructionsNo instructions recorded. Reason for Referral None Reported. 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 4 11:48:30 Oropharyn geal dysphagia 32235252 Active 2023 ALKA VAUGHAN PA-C [address] [facility],[place] [address], [place], [address] , [facility] 4 11:49:05 Problem Notes None recorded. Procedures Surgical History Date Name Laterality Status Provider Name and Address Organization Details Recorded Time 06/11/20 24 Fiberoptic Laryngoscopy (Comprehensive) completed ALKA VAUGHAN PA-C [address] [facility],[place] [address], [place], [address], [place] [facility] 06/11/2024 11:34:26 Imaging Results None recorded. Procedure Notes None recorded. Medical Equipment None Reported. Medications Name Sig Start Date Stop Date Status Note LastModified by Organization Details LastModified Time latanopro st 0.005 % eye drops INSTILL 1 DROP IN BOTH EYES EVERY NIGHT AT BEDTIME active Not Available Not Available No t Available atorvasta tin 40 mg tablet TAKE 1 TABLET BY MOUTH ONCE DAILY active Not Available Not Available No t Available lisinopri l 20 mg-hydroc hlorothia zide 12.5 mg tablet TAKE 1 TABLET BY MOUTH EVERY DAY active Not Available Not Available No t Available ketotifen 0.025 % (0.035 %) eye drops INSTILL 1 DROP INTO BOTH EYES TWICE DAILY active Not Available Not Available No t Available hydrocort isone 1 % topical ointment APPLY TOPICALL Y TO THE AFFECTED AREA TWICE DAILY FOR 14 DAYS 06/11 completed Not Available Not Available Not Available cyanocoba evelyn (vit B-12) 1,000 mcg tablet TAKE 1 TABLET BY MOUTH EVERY DAY active Not Available Not Available No t Available aspirin 81 mg tablet,de layed release active Medicati on ID: [id number] B rand Name: aspirin Send Method: E-Prescr ibed Sub s Allowed: subs OK Speci al Instruct ion: TAKE 1 TABLET BY MOUTH DAILY Me dication GenericN gricel: aspirin Not Available Not Available Not Available amitripty line 10 mg tablet TAKE 1 TABLET BY MOUTH EVERY DAY AT BEDTIME active Not Available Not Available No t Available erythromy damon 5 mg/gram (0.5 %) eye ointment APPLY a 1/2 INCH RIBBON IN EACH EYE EVERY 6 HOURS FOR 7 DAYS 06/11 completed Not Available Not Available Not Available triamcino lone acetonide 0.1 % topical ointment active Medicati on ID: [id number] B rand Name: triamcin olone acetonid e Send Method: E-Prescr ibed Sub s Allowed: subs OK Speci al Instruct ion: APPLY A THIN LAYER TO AFFECTED AREA(S) TWICE DAILY Me dication GenericN gricel: triamcin olone acetonid e Not Available Not Available Not Available lisinopri l 10 mg tablet active Medicati on ID: [id number] B rand Name: lisinopr il Send Method: E-Prescr ibed Sub s Allowed: subs OK Speci al Instruct ion: TAKE 1 TABLET BY MOUTH EVERY DAY Medi cationGe nericNam e: lisinopr il Not Available Not Available Not Available brimonidi ne 0.2 % eye drops INSTILL 1 DROP IN BOTH EYES EVERY 12 HOURS active Not Available Not Available No t Available omeprazol e 20 mg capsule,d elayed release TAKE 1 CAPSULE BY MOUTH EVERY DAY BEFORE A MEAL active Not Available Not Available No t Available lisinopri l 20 mg-hydroc hlorothia zide 25 mg tablet TAKE 1 TABLET BY MOUTH EVERY DAY active Not Available Not Available No t Available aspirin 81 mg chewable tablet CHEW 1 TABLET BY MOUTH EVERY DAY active Not Available Not Available No t Available hydroxyzi ne HCl 25 mg tablet TAKE 1 TABLET BY MOUTH FOUR TIMES DAILY NEEDED FOR ANXIETY active Not Available Not Available No t Available hydrochlo rothiazid e 25 mg tablet active Medicati on ID: [id number] B rand Name: hydrochl orothiaz hayley Send Method: E-Prescr ibed Sub s Allowed: subs OK Speci al Instruct ion: TAKE 1 TABLET BY MOUTH EVERY DAY Medi cationGe nericNam e: hydrochl orothiaz hayley Not Available Not Available Not Available gabapenti n 100 mg capsule TAKE 1 CAPSULE BY MOUTH EVERY DAY AT BEDTIME as tolerate d, AFTER 3 DAYS MAY INCREASE TO 1 CAPSULE BY MOUTH THREE TIMES DAILY active Not Available Not Available No t Available fluticaso ne propionat e 50 mcg/actua tion nasal spray,davion pension active Medicati on ID: [id number] B rand Name: fluticas one propiona te Send Method: E-Prescr ibed Sub s Allowed: subs OK Speci al Instruct ion: USE 1 SPRAY IN EACH NOSTRIL TWICE DAILY Me dication GenericN gricel: fluticas one propiona te Not Available Not Available Not Available metformin ER 500 mg tablet,ex tended release 24 hr TAKE 1 TABLET BY MOUTH TWICE DAILY WITH FOOD active Not Available Not Available No t Available clotrimaz ole 1 % topical cream APPLY TO FEET TWICE DAILY NEEDED RASH active Not Available Not Available No t Available atenolol 50 mg tablet TAKE 1 TABLET BY MOUTH TWICE DAILY active Not Available Not Available No t Available loratadin e 10 mg tablet TAKE 1 TABLET BY MOUTH EVERY MORNING active Not Available Not Available No t Available dorzolami de 2 % eye drops INSTILL 1 DROP IN BOTH EYES THREE TIMES DAILY active Not Available Not Available No t Available Alcohol Prep Pads USE DIRECTED TO CLEAN SKIN EVERY DAY NEEDED active Not Available Not Available No t Available escitalop magaly 5 mg tablet active Medicati on ID: [id number] B rand Name: escitalo pram oxalate Send Method: E-Prescr ibed Sub s Allowed: subs OK Speci al Instruct ion: TAKE 1 TABLET BY MOUTH EVERY DAY por 1 WEEK, SI TOLERA EL MEDICAME NTO NIHARIKA, TAKE 2 TABLETS DAILY (JUNTAS) Medicat ionGener icName: escitalo pram oxalate Not Available Not Available Not Available ProAir HFA 90 mcg/actua tion aerosol inhaler active Medicati on ID: [id number] B rand Name: ProAir HFA Send Method: E-Prescr ibed Sub s Allowed: subs OK Speci al Instruct ion: INHALE 2 PUFFS BY MOUTH EVERY 4 TO 6 HOURS NEEDED M adrianatinicci nGeneric Name: ProAir HFA Not Available Not Available Not Available olopatadi ne 0.2 % eye drops INSTILL 1 DROP INTO THE AFFECTED EYE(S) EVERY MORNING active Not Available Not Available No t Available FreeStyle Lite Strips USE DIRECTED TO TEST BLOOD SUGAR EVERY DAY active Not Available Not Available No t Available FeroSul 325 mg (65 mg iron) tablet TAKE 1 TABLET BY MOUTH EVERY DAY WITH ORANGE JUICE OR VITAMINA C active Not Available Not Available No t Available Lumigan 0.01 % eye drops INSTILL 1 DROP IN BOTH EYES EVERY NIGHT active Not Available Not Available No t Available TRUEplus Lancets 33 gauge USE DIRECTED TO TEST BLOOD SUGAR EVERY DAY active Not Available Not Available No t Available Rhopressa 0.02 % eye drops INSTILL 1 DROP IN BOTH EYES EVERY NIGHT active Not Available Not Available No t Available BinaxNOW COVID-19 Ag Self Test kit TEST DIRECTED TODAY active Not Available Not Available No t Available Vitals Date Recorded Body height Body mass index (BMI) Body weight Provider Name and Address Organization Details Last Updated DateTime 06/11/2024 152.4 cm 28.1 kg/m2 41276.3 g Oj Moser [place] [facility] 06/11/2024 11:17:49 Social History None recorded. Functional Status None recorded. Mental Status None recorded. Family History Nothing Reported. Medical History No medical history recorded. Gynecological HistoryNo gynecological history recorded. Obstetrics History GPAL:G 0 P 0 0 0 0 Past Encounters Encounter ID Performer Location Encounter Start Date Encounter Closed Date Diagnosis/Indication Diagnosis SNOMED-CT Code Diagnosis ICD10 Code Diagnosis IMO Codes Diagnosis Note GIANCARLO OSMAN PA-C [facility] [address] [place] [address] 06/11/2024 10:41:28 06/11/2024 11:54:57 Snoring 15925991 R06.83 Oropharyng eal dysphagia 10085593 R13.12 Health Concerns Section Related Observation LastModified by Organization Detai ls LastModified Time None Recorded Concern Status LastModified by Organization Details LastModified Time None Recorded Advance Directives Directive None Recorded Payers Insurance Date Sequence Insurance Name Policy Number Policy Harrington Covered Member ID Harrington Member ID Guarantor Name 06/11/2024 1 [place] [facility] Sapna Sim [id number] Sapna Sim Notes Date Note Type Note Provider Name and Address Organization Details Recorded Time 06/11/2024 text/html ROS as noted in the HPI 59 year old female presents for evaluation of throat. She reports she feels like foods get hung up around her uvula, ongoing for about 6 months but not worsening since onset. Particularly bananas, rice, and potatoes. Feels like she will choke, though she has not choked nor required Heimlich maneuver. Extra beverage moves things along. She alternates food and beverage, though she acknowledges she does not drink much water. Thinks her uvula has gotten bigger over time. Sometimes she feels like the mouth is dry. She reports she does have some missing teeth but does not feel this prevents her from chewing her food thoroughly. She endorses reflux with intermittent pyrosis for which she takes omeprazole in the morning after breakfast. She has been told that she snores, and stops breathing in the night. Previous sleep study normal 5 years ago. Reports no changes in weight since then. She denies hoarseness, hemoptysis, globus sensation at other times, fever, night sweats, and unintentional weight loss. She was never a tobacco smoker and never drank to excess. OMI ROCK MD [address] [facility],[place] [address], [place], [address], [facility] - [facility] 06/11/2024 17:28:15 OBGyn Episode No OBEpisode recorded.
--- OUTSIDE RECORDS SUMMARY | 2025-06-06 12:15 | XMS_ITS | Encounter Summary ---
Author Organization [employer] Address [address] [facility] 7t [place] [address] Care Team Providers Care Retail Pharmacy Merchandiser Name Role Phone Sandra Currie Primary Care Provider [phone] Encounter Details Date Type Department Care Team ([facility] Contact Info) Description 03/17/2023 Orders Only [facility] [address] [place] [address] Susannah Burnett LPN Social History Tobacco Use [...] Department Care Team (Late Contact Info) Description 07/15/2025 2:15 PM EST Office Visit [address] [address] Sandra Currie ANP [address] [place] [address] 08/16/2025 11:30 AM EST Office Visit [address] [place] [address] Suzanne Carbone, CECY [address] [place] [address] 09/22/2025 1:00 PM EST Office Visit [facility] [address], [place] [phone] Susan Hinson, NEMO [address] [place] [address] documented as of this encounter Visit Diagnoses Not on filedocumented in this encounter Care Teams Retail Pharmacy Merchandiser Relationship Specialty Start Date End Date Sandra Currie ANP [address] [place], [place] [phone] PCP - General Family Medicine 04/30/21 documented as of this encounter
--- OUTSIDE RECORDS SUMMARY | 2025-06-06 12:15 | XMS_ITS | Encounter Summary ---
Author Organization [employer] Address [address] [facility] 7t [place] [address] Care Team Providers Care Marketing Development Representative Name Role Phone Sandra Currie Primary Care Provider [phone] Encounter Details Date Type Department Care Team (Late st Contact Info) Description 11/15/2022 Orders Only [facility] MEDICINE [address] [place] [address] Shikha Louis LPN Social History Tobacco Use [...] Description 07/15/2025 2:15 PM EST Office Visit [facility]INE [address] [place] [address] Sandra Currie ANP [address] [place] [address] 08/16/2025 11:30 AM EST Office Visit [facility] [address] [place] [address] Suzanne Carbone CNM [address] [place] [address] 09/22/2025 1:00 PM EST Office Visit [facility] OPTOMETRY [address] [place], [place] [phone] Susan Hinson OD [address] [place] [address] documented as of this encounter Visit Diagnoses Not on filedocumented in this encounter Care Teams Marketing Development Representative Relationship Specialty Start Date End Date Sandra Currie ANP [address] [place], [place] [phone] PCP - General Family Medicine 04/30/21 documented as of this encounter
--- OUTSIDE RECORDS SUMMARY | 2025-06-06 12:15 | XMS_ITS | Encounter Summary ---
Author Organization [employer] Address [address] [facility] 7t [place] [address] Care Team Providers Care Content Management Specialist Name Role Phone Sandra Currie Primary Care Provider [phone] Reason for Visit * Reason Onset Date Comments pt1 03/01/2025 Encounter Details Date Type Department Care Team ([facility] st Contact Info) Description 03/01/2025 Telephone [facility] MEDICINE [address] [place], [place] [phone] Sandra Currie ANP [address] [place], [place] [phone] pt1 Social History Tobacco Use Types Packs/Day Years [...] with others, in a hotel, in a half-way, living outside on the street, on a [...] Description 07/15/2025 2:15 PM EST Office Visit [facility] [address] [place] [address] Sandra Currie ANP [address] [place] [address] 08/16/2025 11:30 AM EST Office Visit [facility] [address] [place] [address] Suzanne Carbone, CNM [address] [place] [address] 09/22/2025 1:00 PM EST Office Visit [facility] OPTOMETRY [address] [place] [address] Sravan, Susan, OD [address] [place] [address] documented as of this encounter Visit Diagnoses Not on filedocumented in this encounter Additional Health Concerns Assessment Noted Time PHQ-9 Depression Total Score: 5 09/17/19 25 11:23 AM EST documented as of this encounter Care Teams Content Management Specialist Relationship Specialty Start Date End Date Sandra Currie, ABHISHEK [address] [place] [address] PCP - General Family Medicine 04/30/21 documented as of this encounter
--- OUTSIDE RECORDS SUMMARY | 2025-06-06 12:15 | XMS_ITS | Encounter Summary ---
Author Organization [employer] Address 75 [facility] 7t [place] [address] Care Team Providers Care Elementary School Social Worker Name Role Phone Sandra Currie Primary Care Provider [phone] Encounter Details Date Type Department Care Team (Late st Contact Info) Description 04/26/2025 Telephone [facility] [address] [place], [place] [phone] Sandra Currie ANP 230 [place], [place] [phone] Social History Tobacco Use Types Packs/Day Years [...] AM EDT documented as of this encounter Miscellaneous Notes * Telephone Encounter - Katerine Moser - 04/26/2025 10:58 AM EDT Date of Surgery: 05/13/25 Surgical procedure being done: Left eye cataract Type of anesthesia: MAC Lab needed: No EKG: No Surgeon's name: Lisandro Campbell Facility name: [facility] Surgeon's office number: [phone] ext [phone] Surgeon's office fax number: [phone] Contact name (person you spoke with): Nadiya Last office note from surgeon requested: Yes FACILITY AND PT AGREED TO PRE OP APPOINTMENT ON 04/27 WITH APPRAM documented in this encounter Plan of Treatment Upcoming Encounters Date Type Department Care Team ([facility] st Contact Info) Description 07/15/2025 2:15 PM EST Office Visit [facility] [address] [place] [address] Sandra Currie ANP 230 [place] [address] 08/16/2025 11:30 AM EST Office Visit [facility] [address] [place] [address] Suzanne Carbone CNM 230 [place] [address] 09/22/2025 1:00 PM EST Office Visit [facility] [address] [place] [place], [place] [phone] Susan Hinson, OD 230 [place], [place] [phone] documented as of this encounter Visit Diagnoses Not on filedocumented in this encounter Additional Health Concerns Assessment Noted Time PHQ-9 Depression Total Score: 5 09/17/19 25 11:23 AM EST documented as of this encounter Care Teams Elementary School Social Worker Relationship Specialty Start Date End Date Sandra Currie ANP [address] [place] [address] PCP - General Family Medicine 04/30/21 documented as of this encounter
--- OUTSIDE RECORDS SUMMARY | 2025-06-06 12:15 | XMS_ITS | Clinical Summary ---
Author Organization [facility] Address [address] [address] Phone Care Team Providers Care Beef Specialist Name Role Phone Unavailable Primary Care Provider Unavailabl e Social History Tobacco Use Types Packs/Day Years Used Date Smoking Tobacco: Never Assessed Education Answer Date Recorded Are you interested in more education? Not on fallon e 01/03/2023 Are you concerned about learning? Not on file 01/03/2023 No 01/03/2023 No 01/03/2023 Digital Access Answer Date Recorded No 02/04/2023 No 02/04/2023 No 02/04/2023 Reliable internet access at home? Not on file 02/04/2023 Device with a working camera? Not on file Comments Unknown Sex and Gender Information Value Date Recorded Sex Assigned at Not on file Legal Sex Female 3:03 PM EDT Gender Identity Not on file Sexual Orientation Not on file Plan of Treatment Not on file Medical Devices Not on file Insurance [address] [place] [id number] [place] [address] [address] [place], [place] [id number] [place] [address] [place] [place] [address] C3 ACO C3 ACO [facility] C3 ACO Additional Source Comments The information contained in this document represents components of the legal health record. It is not the complete legal health record.[facility]
--- OUTSIDE RECORDS SUMMARY | 2025-06-06 12:15 | XMS_ITS | Encounter Summary ---
Author Organization [employer] Address 75 [facility] 7t [place] [address] Care Team Providers Care Director Of Agronomy Name Role Phone Sandra Currie Primary Care Provider [phone] Encounter Details Date Type Department Care Team (Late st Contact Info) Description 10/03/2022 Orders Only [facility] CHC MED & PEDS [address] [place] [address] Susannah Burnett LPN Social History Tobacco Use [...] Description 07/15/2025 2:15 PM EST Office Visit [facility] MEDICINE [address] [place] [address] Sandra Currie ANP [address] [place] [address] 08/16/2025 11:30 AM EST Office Visit [facility] MEDICINE [address] [place] [address] Suzanne Carbone CNM [address] [place] [address] 09/22/2025 1:00 PM EST Office Visit [facility] OPTOMETRY [address] [place] [address] Susan Hinson OD [address] [place] [address] documented as of this encounter Visit Diagnoses Not on filedocumented in this encounter Care Teams Director Of Agronomy Relationship Specialty Start Date End Date Sandra Currie ANP 230 [place] [address] PCP - General Family Medicine 04/30/21 documented as of this encounter
--- OUTSIDE RECORDS SUMMARY | 2025-06-06 12:15 | XMS_ITS | Clinical Summary ---
Author Organization [facility] Address [address] [place] [address] Care Team Providers Care Certified Athletic Trainer Name Role Phone Unavailable Primary Care Provider [...] 01/27/2016 Zoster Vaccines (1 of 2) 01/27/2016 Depression Screening 09/08/2024 COVID-19 Vaccine (1 - 2023-2 5 season) 2025 Influenza Vaccine (#1) 2025 RSV Immunization Adult [...]
== END 2025-06-06 11:02 | disposition home or self-care (01) ==
LOC: HO.HKA 10:45
PROVIDERS: PCP Nurse Practitioner Primary Care; Visit Provider Internal Medicine Hypertension Specialist
DX: I10 Essential (primary) hypertension (principal); I70.1 Atherosclerosis of renal artery; E87.0 Hyperosmolality and hypernatremia
CPT/HCPCS: 99214

== ENCOUNTER → 2025-06-06 10:44 | Outpatient (BNVA) | payer MEDICAID, SELFPAY | PROVIDERS: PCP Nurse Practitioner Primary Care; Visit Provider Internal Medicine Hypertension Specialist | DX: I10 Essential (primary) hypertension (principal); I70.1 Atherosclerosis of renal artery; E87.0 Hyperosmolality and hypernatremia | CPT/HCPCS: 99212 ==

== ENCOUNTER 2025-06-29 12:20 | Outpatient (REF) | payer MEDICAID, SELFPAY | END 2025-06-29 12:21 | disposition home or self-care (01) | LOC: HO.MAMMO 12:20 | PROVIDERS: PCP Nurse Practitioner Primary Care; Visit Provider Nurse Practitioner Primary Care | DX: Z12.31 Encounter for screening mammogram for malignant neoplasm of breast (principal) | CPT/HCPCS: 77063; 77067 ==

== ENCOUNTER → 2025-06-29 13:00 | Outpatient (BNV) | payer MEDICAID, SELFPAY | PROVIDERS: PCP Nurse Practitioner Primary Care; Visit Provider Radiology Body Imaging | DX: Z12.31 Encounter for screening mammogram for malignant neoplasm of breast (principal) | CPT/HCPCS: 77063; 77067 ==

== ENCOUNTER 2025-09-06 17:49 | Outpatient (REF) | payer MEDICAID, SELFPAY ==
--- OUTSIDE RECORDS SUMMARY | 2025-09-06 14:40 | XMS_ITS | Encounter Summary ---
Author Organization [employer] Address 75 [facility] 7t [place] [address] Care Team Providers Care Ornamental Plasterer Helper Name Role Phone Sandra Currie Primary Care Provider [phone] Reason for Visit * Reason Comments UTI Encounter Details Date Type Department Care Team ([facility] st Contact Info) Description 09/06/2025 2:40 PM EST Office Visit [facility] 230 [place], [place] [phone] Tatianna Castro FNP [address] [place] [address] Dysuria (Primary Dx) Social History Tobacco Use Types Packs/Day Years [...] AM EDT documented as of this encounter Last Filed Vital Signs Vital Sign Reading Time Taken Comments Blood Pressure 185/93 09/06/2025 1:05 PM EST Automatic Machine Pulse 57 09/06/2025 1:05 PM EST Temperature 37 C (98.6 F) 09/06/2025 1:05 PM EST Respiratory Rate 15 09/06/2025 1:05 PM EST Oxygen Saturation - - Inhaled Oxygen Concentration - - Weight 65.9 kg (145 lb 3.2 oz) 09/06/2025 1:05 PM EST Height 152.4 cm (5') 09/06/2025 1:05 PM EST Body Mass Index 28.36 09/06/2025 1:05 PM EST documented in this encounter Progress Notes * JAGRUTI Almonte - 09/06/2025 2:40 PM EST SUBJECTIVE Sapna Sim is a 60 y.o. female who presents for UTI. Vaginal Discomfort and Itching - Vaginal discomfort and itching reported prior to visit - No clear onset date; last similar episode occurred many years ago, unable to recall exact timing - Previous similar episode associated with infection, treated after medical evaluation - Reports lower abdominal discomfort, denies nausea, chills , fever or vomiting - Reports Urinary frequency present for a while prior to visit - Reports needing to urinate again shortly after using the bathroom, even if only a small amount - Had bowel movement in the morning prior to visit Review of Systems Constitutional: Negative for chills and fever. Respiratory: Negative for cough, chest tightness, shortness of breath and wheezing. Cardiovascular: Negative for chest pain and palpitations. Gastrointestinal: Lower abdominal pain Genitourinary: Positive for dysuria and frequency. Psychiatric/Behavioral: Negative for suicidal ideas. Allergies[1] OBJECTIVE Vitals: 09/06/25 1305 BP: (!) 185/93 BP Location: Left arm Patient Position: Sitting BP Cuff Size: Adult Pulse: 57 Resp: 15 Temp: 98.6 ??F (37 ??C) TempSrc: Oral Weight: 145 lb 3.2 oz (65.9 kg) Height: 5' (1.524 m) Physical Exam Vitals reviewed. Constitutional: Appearance: Normal appearance. HENT: Head: Atraumatic. Cardiovascular: Rate and Rhythm: Normal rate and regular rhythm. Pulses: Normal pulses. Heart sounds: Normal heart sounds. No murmur heard. Pulmonary: Effort: Pulmonary effort is normal. Breath sounds: Normal breath sounds. No wheezing. Abdominal: Tenderness: There is abdominal tenderness. There is no right CVA tenderness or left CVA tenderness. Neurological: Mental Status: She is alert and oriented to person, place, and time. Psychiatric: Mood and Affect: Mood normal. Behavior: Behavior normal. Assessment/Plan Problem List Items Addressed This Visit None Visit Diagnoses Dysuria - Primary Dysuria: - Dysuria likely secondary to urinary tract infection. - Prescribed antibiotics empirically. Ordered urine culture to confirm infection and guide antibiotic therapy. Advised to drink water and not to hold urine. Will adjust antibiotics if culture resultsindicate need for stronger therapy. Vaginal pruritus and discomfort - Vaginal pruritus and discomfort, possible candidiasis or bacterial vaginosis. - Ordered vaginal swab for culture to evaluate for fungal infection and bacterial vaginosis. - Further treatment will depend on results Relevant Orders POCT urinalysis dipstick manually resulted (CPT 13461) (Completed) Culture, Urine, Routine Chlamydia/N. Gonorrhoeae RNA, TMA, Urogenitial Relevant medication Nitrofurantoin microcrystal- monohydrate This note was drafted using Ambient (AI) technology. The patient/patient's guardian has been informed and has consented to the use of this technology: Yes Future Appointments Date Time Provider Department Center 09/06/2025 2:40 PM [facility] 1 WALK-IN [facility] 09/13/2025 10:15 AM Suzanne Carbone CNM [facility] 11/03/2025 2:00 PM ABHISHEK Quach [facility] [1] No Known Allergies documented in this encounter Plan of Treatment Upcoming Encounters Date Type Department Care Team (Late st Contact Info) Description 09/13/2025 10:15 AM EST Office Visit [address] [phone] Suzanne Carbone CNM [address] [place] [phone] 11/03/2025 2:00 PM EST Office Visit [address] [phone] Sandra Currie ANP [address] [place] [phone] Scheduled Orders Name Type Priority Associated Diagnoses Orde r Schedule Culture, Urine, Routine Microbiology Routine Dysuria Ordered: 09/06/2025 Chlamydia/N. Gonorrhoeae RNA, TMA, Urogenitial Microbiology Routine Dysuria Ordered: 09/06/2025 documented as of this encounter Procedures Procedure Name Priority Date/Time Associated Diagnosis Comments POCT URINALYSIS DIPSTICK Routine 09/06/2025 1:14 PM EST Dysuria documented in this encounter Results * (ABNORMAL) POCT urinalysis dipstick manually resulted (CPT 03628) (09/06/2025 1:14 PM EST) Color, UA Yellow Clarity, UA Clear Glucose, UA Negative Bilirubin, UA Negative Ketones, UA Negative Spec Grav, UA 1.020 Blood, UA Negative Negative, None Detected pH, UA 7.0 Protein, UA Negative Urobilinogen, UA 0.2 Leukocytes, UA Moderate(A) Negative, Rare, Trace, 1+ (17), 2+ (35), 3+ (70), Trace (15) Nitrite, UA Negative Negative, None Detected Urine (Urine, Random) 09/06/2025 1:14 PM EST Tatianna Castro PATTERN DEVELOPER POINT OF CARE TEST ENTER/EDIT ORDERABLES Final Result documented in this encounter Visit Diagnoses Diagnosis Dysuria- Primary documented in this encounter Additional Health Concerns Assessment Noted Time PHQ-9 Depression Total Score: 5 09/17/19 25 11:23 AM EST documented as of this encounter Care Teams Ornamental Plasterer Helper Relationship Specialty Start Date End Date Sandra Currie ANP [address] [place] [address] PCP - General Family Medicine 04/30/21 documented as of this encounter
--- OUTSIDE RECORDS SUMMARY | 2025-09-06 19:15 | XMS_ITS | Encounter Summary ---
Author Organization [employer] Address 75 [facility] 7t [place] [address] Care Team Providers Care Manufacturing Sr Engineer Name Role Phone Sandra Currie Primary Care Provider [phone] Encounter Details Date Type Department Care Team (Latest Contact Info) Description 09/06/2025 Travel Social History Tobacco Use Types Packs/Day Years [...] is your housing situation today? I have toyb villarreal 03/21/[address] you [...] Description 09/13/2025 10:15 AM EST Office Visit [address] [address] Suzanne Carbone CNM [address] [place] [address] 11/03/2025 2:00 PM EST Office Visit [address] [address] Sandra Currie ANP [address] [place] [address] documented as of this encounter Visit Diagnoses Not on filedocumented in this encounter Additional Health Concerns Assessment Noted Time PHQ-9 Depression Total Score: 5 09/17/19 25 11:23 AM EST documented as of this encounter Care Teams Manufacturing Sr Engineer Relationship Specialty Start Date End Date Sandra Currie ANP [address] [place] [address] PCP - General Family Medicine 04/30/21 documented as of this encounter
--- OUTSIDE RECORDS SUMMARY | 2025-09-06 19:15 | XMS_ITS | Encounter Summary ---
Author Organization [employer] Address 75 [facility] 7t [place] [address] Care Team Providers Care Obiee Report Developer Name Role Phone Sandra Currie Primary Care Provider [phone] Encounter Details Date Type Department Care Team (Late st Contact Info) Description 12/09/2022 Orders Only [facility] CHC MED & PEDS [address] [place] [address] Susannah Burnett LPN Social History Tobacco Use [...] Description 09/13/2025 10:15 AM EST Office Visit [facility] MEDICINE [address] [place] [address] Suzanne Carbone CNM [address] [place] [address] 11/03/2025 2:00 PM EST Office Visit [facility] MEDICINE [address] [place] [address] Sandra Currie ANP [address] [place] [address] documented as of this encounter Visit Diagnoses Not on filedocumented in this encounter Care Teams Obiee Report Developer Relationship Specialty Start Date End Date Sandra Currie ANP [address] [place] [address] PCP - General Family Medicine 04/30/21 documented as of this encounter
--- OUTSIDE RECORDS SUMMARY | 2025-09-06 19:15 | XMS_ITS | Encounter Summary ---
Author Organization [facility] Address [address] [place] [address] Phone Care Team Providers Care Tank Storage Supervisor Name Role Phone Unavailable Primary Care Provider Unavailabl e Encounter Details Date Type Department Care Team (Latest Contact Info) Description 06/02/2019 Ancillary Orders [facility] [address] [place] [address] Chinedu Glover, DO [address] [place] [address] Fatigue, unspecified type Social History Tobacco Use [...] It is not the complete legal health record.[facility]
--- OUTSIDE RECORDS SUMMARY | 2025-09-06 19:16 | XMS_ITS | Encounter Summary ---
Author Organization [employer] Address 75 [facility] 7t [place] [address] Care Team Providers Care Instructional Support Services Director Name Role Phone Sandra Currei Primary Care Provider [phone] Encounter Details Date Type Department Care Team (Late st Contact Info) Description 04/26/2025 Telephone [facility] MEDICINE 230 [place], [place] [phone] Sandra Currie ANP 230 [place], [place] [phone] Social History Tobacco Use Types Packs/Day Years [...] name: [facility] Surgeon's office number: [phone] Surgeon's office fax number: [phone] Contact name (person you spoke with): Nadiya Last office note from surgeon requested: Yes FACILITY AND PT AGREED TO PRE OP APPOINTMENT ON 04/27 WITH APPRAM documented in this encounter Plan of Treatment Upcoming Encounters Date Type Department Care Team (Late st Contact Info) Description 09/13/2025 10:15 AM EST Office Visit [facility] MEDICINE [address] [place] [address] Suzanne Carbone CNM 230 [place] [address] 11/03/2025 2:00 PM EST Office Visit [facility] MEDICINE [address] [place] [address] Sandra Currie ANP [address] [place] [address] documented as of this encounter Visit Diagnoses Not on filedocumented in this encounter Additional Health Concerns Assessment Noted Time PHQ-9 Depression Total Score: 5 09/17/19 25 11:23 AM EST documented as of this encounter Care Teams Instructional Support Services Director Relationship Specialty Start Date End Date Sandra Currie ANP [address] [place] [address] PCP - General Family Medicine 04/30/21 documented as of this encounter
--- OUTSIDE RECORDS SUMMARY | 2025-09-06 19:16 | XMS_ITS | Clinical Summary ---
Author Organization [facility] Address [address] [address] Phone Care Team Providers Care Customer Care Coordinator Name Role Phone Unavailable Primary Care [...] Medical Devices Not on file Insurance [address] [place] [id number] [place] [address] [address] [place] [id number] [place] [address] [address] [place] [address] [place] [address] C3 ACO C3 ACO [facility] C3 ACO Additional Source Comments The information contained in this document represents components of the legal health record. It is not the complete legal health record.[facility]
--- OUTSIDE RECORDS SUMMARY | 2025-09-06 19:16 | XMS_ITS | Data Portability ---
Author Organization [place] [facility], Allergy Address 100 [facility] [address] [place] [address] Care Team Providers Care Glazier Structural Glass Name Role Phone SARA GAUTAM Primary Care [...] polysomno graphy, diagnosti c (PROC) 2023 [facility] Sleep Medicine Services, [address] [place], [address], 11:36:47 Surgeries None recorded. Imaging [place], modified barium swallow study 2023 [facility] Radiology, [address] [place], [address], 09:38:00 Medication Orders None recorded. Patient TargetsNo targets recorded. Patient InstructionsNo instructions recorded. Reason for Referral None Reported. 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 , including 'globus hystericu s'; Note: Date Diagnosed : 12:41 PM (F45.8) Not Available [facility] 4 02:23:06 Sensorine ural hearing loss of bilateral ears 726867892 Active 2022 Sensorine ural hearing loss, bilateral ; Note: Date Diagnosed : 01/06/2023 3:01 PM (H90.3) Not Available [facility] 4 02:22:26 Snoring 24833386 Active 2023 ALKA VAUGHAN PA-C [address] [facility],[place] [address], [place], [address] , [facility] - [facility] 4 11:48:30 Oropharyn geal dysphagia 49131530 Active 2023 ALKA VAUGHAN PA-C [address] [facility] [place] [address], [place], [address] , [facility] 4 11:49:05 Problem Notes None recorded. Procedures Surgical History Date Name Laterality Status Provider Name and Address Organization Details Recorded Time 06/11/20 24 Fiberoptic Laryngoscopy (Comprehensive) completed ALKA VAUGHAN PA-C [address] [facility] [place] [address], [place], [address], [place] [facility] 06/11/2024 11:34:26 Imaging Results None recorded. [...] tablet,de layed release active Medicati on ID: 244327 B rand Name: aspirin Send Method: E-Prescr [...] % topical ointment active Medicati on ID: 091561 B rand Name: triamcin olone acetonid e Send Method: E-Prescr ibed Sub s Allowed: subs OK Speci al Instruct ion: APPLY A THIN LAYER TO AFFECTED AREA(S) TWICE DAILY Me dication GenericN gricel: triamcin olone acetonid e Not Available Not Available Not Available lisinopri l 10 mg tablet active Medicati on ID: 189611 B rand Name: lisinopr il Send Method: [...] 25 mg tablet active Medicati on ID: 312446 B rand Name: hydrochl orothiaz hayley Send [...] nasal spray,davion pension active Medicati on ID: 528776 B rand Name: fluticas one propiona te [...] 5 mg tablet active Medicati on ID: 977571 B rand Name: escitalo pram oxalate Send Method: E-Prescr ibed Sub s Allowed: subs OK Speci al Instruct ion: TAKE 1 TABLET BY MOUTH EVERY DAY por 1 WEEK, SI TOLERA EL MEDICAME NTO NIHARIKA, TAKE 2 TABLETS DAILY (JUNTAS) Medicat ionGener icName: escitalo pram oxalate Not Available Not Available Not Available ProAir HFA 90 mcg/actua tion aerosol inhaler active Medicati on ID: 900571 B rand Name: ProAir HFA Send Method: [...] Updated DateTime 06/11/2024 152.4 cm 28.1 kg/m2 25208.3 g Oj Moser [place] [facility] 06/11/2024 11:17:49 Social History None recorded. [...] Codes Diagnosis Note GIANCARLO OSMAN PA-C [facility] [address] [place] [address] 06/11/2024 10:41:28 06/11/2024 11:54:57 Snoring 71141004 R06.83 Oropharyng eal dysphagia 71433997 R13.12 Health Concerns Section Related Observation LastModified by Organization Detai ls LastModified Time None Recorded Concern Status LastModified by Organization Details LastModified Time None Recorded Advance Directives Directive None Recorded Payers Insurance Date Sequence Insurance Name Policy Number Policy [place] Covered Member ID [place] Member ID Guarantor Name 06/11/2024 1 [place] [facility] Sapna Sim [id number] Sapna Sim Notes Date Note Type Note [...] drank to excess. OMI ROCK MD [address] [facility],[place] [address], [place], [address], [facility] - [facility] 06/11/2024 17:28:15 OBGyn Episode No OBEpisode recorded.
--- OUTSIDE RECORDS SUMMARY | 2025-09-06 19:16 | XMS_ITS | Encounter Summary ---
Author Organization [employer] Address 75 [facility] 7t [place] [address] Care Team Providers Care Ranch Hand Livestock Name Role Phone Sandra Currie Primary Care Provider [phone] Encounter Details Date Type Department Care Team (Late st Contact Info) Description 10/03/2022 Orders Only [facility] CHC MED & PEDS [address] [place] [address] Susannah Burnett LPN Social History Tobacco Use [...] Description 09/13/2025 10:15 AM EST Office Visit [facility] MEDICINE [address] [place] [address] Suzanne Carbone CNM [address] [place] [address] 11/03/2025 2:00 PM EST Office Visit [facility] MEDICINE [address] [place] [address] Sandra Currie ANP [address] [place] [address] documented as of this encounter Visit Diagnoses Not on filedocumented in this encounter Care Teams Ranch Hand Livestock Relationship Specialty Start Date End Date Sandra Currie ANP [address] [place] [address] PCP - General Family Medicine 04/30/21 documented as of this encounter
--- OUTSIDE RECORDS SUMMARY | 2025-09-06 19:16 | XMS_ITS | Encounter Summary ---
Author Organization [employer] Address [address] [facility] 7t [place] [address] Care Team Providers Care Wet Mix Operator Name Role Phone Sandra Currie Primary Care Provider [phone] Encounter Details Date Type Department Care Team (Late st Contact Info) Description 02/10/2024 Abstract [facility] [address] [place], [place] [phone] Sandra Currie ANP [address] [place], [place] [phone] Social History Tobacco Use Types Packs/Day Years [...] the past 12 months, has t he [facility], [employer], oil or water [employer] threatened to shut off services in your [...] Description 09/13/2025 10:15 AM EST Office Visit [address] [address] Suzanne Carbone CNM [address] [place] [address] 11/03/2025 2:00 PM EST Office Visit [address] [address] Sandra Currie ANP [address] [place] [address] documented as of this encounter Procedures Procedure [...] on filedocumented in this encounter Care Teams Wet Mix Operator Relationship Specialty Start Date End Date Sandra Currie ANP [address] [place] [phone] PCP - General Family Medicine 04/30/21 documented as of this encounter
--- OUTSIDE RECORDS SUMMARY | 2025-09-06 19:16 | XMS_ITS | Clinical Summary ---
Author Organization [facility] Address [address] [place] [address] Care Team Providers Care Gi Asst Name Role Phone Unavailable Primary Care Provider [...] Depression Screening 09/08/2024 COVID-19 Vaccine (1 - 2024-2 6 season) 2025 Influenza Vaccine (#1) 2025 RSV [...]
--- OUTSIDE RECORDS SUMMARY | 2025-09-06 19:16 | XMS_ITS | Encounter Summary ---
Author Organization [employer] Address [address] [facility] 7t [place] [address] Care Team Providers Care Outdoor Recreation Specialist Name Role Phone Sanrda Currie Primary Care Provider [phone] Reason for Visit * Reason Comments Med Refill Encounter Details Date Type Department Care Team ([facility] st Contact Info) Description 06/24/2025 Refill [facility] [address] [place], [place] [phone] Sandra Currie ANP [address] [place], [place] [phone] Tinea pedis of both feet Social History Tobacco Use Types Packs/Day Years [...] your housing situation today? I have toby vlilarreal 03/21/[address] you li [...] Description 09/13/2025 10:15 AM EST Office Visit [facility] [address] [place] [address] Suzanne Carbone CNM [address] [place] [address] 11/03/2025 2:00 PM EST Office Visit [facility] [address] [place] [address] Sandra Currie ANP [address] [place] [phone] documented as of this encounter Visit Diagnoses Diagnosis Tinea pedis of both feet documented in this encounter Additional Health Concerns Assessment Noted Time PHQ-9 Depression Total Score: 5 09/17/19 25 11:23 AM EST documented as of this encounter Care Teams Outdoor Recreation Specialist Relationship Specialty Start Date End Date Sandra Currie ANP [address] [place] [address] PCP - General Family Medicine 04/30/21 documented as of this encounter
--- OUTSIDE RECORDS SUMMARY | 2025-09-06 19:16 | XMS_ITS | Clinical Summary ---
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 60 each 03/18/20 24 Active Alcohol Swabs padsIndications:Ty pe 2 diabetes mellitus with hyperglycemia, unspecified whether intermediate insulin use (HCC) 1 each if needed [...] 2 diabetes mellitus with hyperglycemia, unspecified whether intermediate insulin use (HCC) TAKE 1 TABLET BY MOUTH TWICE DAILY WITH FOOD 180 tablet 3 12/30/19 25 Active omeprazole (PriLOSEC) [address] capsule TAKE 1 CAPSULE BY MOUTH EVERY DAY BEFORE A MEAL 90 capsule 1 02/24/20 25 Active atorvastatin (Lipitor) 80 MG tabletIndications: Hypertension [...] bedtime. 90 capsule 04/14/20 25 026 Active nitrofurantoin, macrocrystal-monoh ydrate, (Macrobid) 100 MG capsule Take 1 capsule (100 mg) by mouth 2 times daily for 5 days. 10 capsule 5 2:01 PM EST 09/06/20 25 026 Active cholecalciferol (Vitamin D-3) 25 MCG (1000 UT) capsuleIndications :Low vitamin D level Take 1 capsule (25 mcg) by mouth Once per day. 90 capsule 1 02/24/20 25 025 Active Problems Problem Noted Date Diagnosed Date Hypertriglyceridemia 03/28/2025 Advanced open-angle glaucoma, severe stage 12/14 Overview (12/15/2023): w/ sx poor vision and visual field defects. She is followed closely by Dr. Edge and is on multiple medications. Eye exam [facility] 06/2023, no retinopathy. 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 Date Type Department Care Team Description 09/06/2025 2:40 PM EST Office Visit [facility] [address] [place] [address] Tatianna Castro FNP Dysuria (Primary Dx) 09/06/2025 Travel 08/17/2025 Telephone [facility] [address] [place] [address] Carrie Marcano MA 07/13/2025 Telephone [facility] MEDICINE [address] [place] [address] Sara Gautam ANP chart prep 06/29/2025 Orders Only [facility] MEDICINE [address] [place] [address] Sara Gautam ANP 06/24/2025 Refill [facility] [address] [place] [address] Sara Gautam, ABHISHEK Tinea pedis of both feet from Last 3 Months Immunizations Immunization Administration [...] 15 09/06/2025 1:05 PM EST Oxygen Saturation 99% 05/02/2025 11: 31 AM EDT Inhaled Oxygen Concentration - - Weight 65.9 kg (145 lb 3.2 oz) 09/06/2025 1:05 PM EST Height 152.4 cm (5') 09/06/2025 1:05 PM EST Body Mass Index 28.36 09/06/2025 1:05 PM EST Plan of Treatment Upcoming Encounters Date Type Department Care Team (Late st Contact Info) Description 09/13/2025 10:15 AM EST Office Visit [facility] MEDICINE [address] [place] [address] Kelly Hidalgo, CECY [address] [place] [address] 11/03/2025 2:00 PM EST Office Visit [facility] MEDICINE [address] [place] [address] Sara Gautam ANP [address] [place] [address] Health Maintenance Due Date Last Done Comments CT Colonography 1965 FIT 1965 Sigmoidoscopy 1965 Hepatitis B Vaccines (1 of 3 - 19+ 3-dose series) 1985 RSV Patients and Patients Aged 60 years or older (1 - Risk 50-74 years 1-dose series) 01/27/2016 Dental Prophylaxis 07/23/2018 01/19/2018, 1 09/20/2016, 01/14/2017, Additional history exists Dental Oral Exam 08/23/2018 02/20/2018, , 01/14/2017, Additional history exists Dental X-Ray: Bitewings 02/21/2019 02/21/20 18, 01/14/2017, 03/29/2016 COVID-19 Vaccine ( season) 2025 10/09/2021, 01/27/2021, 12/30/2020 Influenza Vaccine (#1) 2025 , 07/22/2023, 07/03/2021, Additional history exists Diabetes: Hemoglobin A1C 06/28/2025 025, 09/17/2024, 03/18/2024, Additional history exists Eye Exam 06/30/2025 06/30/2023, 06/09, 06/30/2023, Additional history exists Alcohol/Substance Use Screening 09/17/2025 09/17/2024 Depression Screening 09/17/2025 09/17/2024, 09/17/19 Diabetes: Urine Protein Screening 09/17/2025 09/17/2024, 10/02/2021, 10/02/2021, Additional history exists SDOH Screening 03/21/2026 03/21/2025 Diabetes: Foot Exam 03/28/2026 03/28/2025, 03/28/2025, 03/28/2025, Additional history exists Disability Screening 03/28/2026 03/28/2025 Lipid Panel 05/02/2026 05/02/2025, 04/09, 02/15/2025, Additional history exists FOBT 05/03/2026 05/03/2025, 02/06/2022 Mammogram 07/03/2026 07/03/2025, 06/09, 02/10/2024, Additional history exists Tobacco Screening 09/06/2026 09/06/2025 Dental X-Ray: Full Mouth 11/28/2027 025, 04/07/2020, 03/29/2016 Colorectal Cancer Screening 05/03/2028 FIT DNA/Cologuard 05/03/2028 05/03/2025, 02/06/2022 Cervical Cancer Screening 08/04/2028 HPV/Cotest 08/04/2028 08/04/2023, 08/02/2020 Pap Smear 08/04/2028 08/04/2023, 08/02/2020 Colonoscopy 02/07/2032 02/06/2022 DTaP/Tdap/Td Vaccines (3 - Td or Tdap) 09/17/2034 09/17/2024, 02/10/2014, 09/02/2002 Zoster Vaccines Completed 05/05/2020, 07/19/2019 HIV Screening [...] DIPSTICK Routine 09/06/2025 1:14 PM EST Dysuria BI MAMMOGRAM SCREENING TOMOSYNTHESIS BILATERAL Routine 06/29/2025 1:10 PM EDT LAB COLOGUARD COLON CANCER SCREEN Routine 05/03/2025 10:00 AM EDT Screening for colon cancer LIPID PANEL, STANDARD Routine 05/02/2025 9:45 AM EDT Hypertriglyceridem ia POCT GLYCATED HEMOGLOBIN, TOTAL Routine 03/28/2025 12:01 PM EDT Hypertension associated with diabetes (CMS/HCC) ALBUMIN, RANDOM URINE W/CREATININE Routine 09/17/2024 11:06 AM EST Hypertension associated with diabetes (CMS/HCC) (CMS/HCC) HPV MRNA E6/E7 REFLEX TO HPV 16, [...] to Health Maintenance Results * (ABNORMAL) POCT urinalysis dipstick manually resulted (CPT 77826) (09/06/2025 1:14 PM EST) Color, UA Yellow [...] Random) 09/06/2025 1:14 PM EST Tatianna Castro RAIL OPERATOR POINT OF CARE TEST ENTER/EDIT ORDERABLES Final Result * BI Mammogram Screening Tomosynthesis Bilateral (06/29/2025 1:10 PM EDT) Anatomical Region Laterality Modality Breast Bilateral Mammography 06/29/2025 1:10 PM EDT Narrative 07/03/2025 4:23 PM EDT [facility] [address] [place] [address] Mammography Report Signed Patient: Sapna Juan I MR#: [id number] : 1965 Acct:[id number] Age/Sex: 60 / F ADM Date: 06/29/25 Loc: MAMMO Attending Dr: Sara Gautam NP Ordering Physician: ASRA GAUTAM NP Results: 1Negative Date of Service: 06/29/25 Follow Up: 1 Year From [facility] Mammogram Procedure(s): MM tomosynthesis screening BI Accession Number(s): [id number] cc: SARA GAUTAM NP Reason For Exam: Z12.31 EXAMINATION: MM SCREENING DIGITAL BREAST TOMOSYNTHESIS, BILATERAL CLINICAL INFORMATION: Screening. Asymptomatic. COMPARISON: Comparison made to multiple prior, most recent January 13, 2024, and most remote May 26, 2017. TECHNIQUE: Digital breast tomosynthesis is performed in mediolateral oblique and craniocaudal views along with computer-aided detection (CAD). Synthesized 2D images are generated from the tomosynthesis. FINDINGS: BREAST COMPOSITION: There are scattered areas of fibroglandular density. BILATERAL BREASTS: No significant masses, suspicious calcifications or other abnormalities are seen in either breast. MM/MM tomosynthesis screening BI IMPRESSION: BILATERAL BREASTS: Negative, no mammographic evidence of malignancy. Normal interval follow-up is recommended in 12 months. ASSESSMENT: BI-RADS: Category 1: Negative RECOMMENDATION: Routine annual mammography screening. FOLLOW-UP: 1 year F/U This examination should not preclude the clinical evaluation of a suspicious palpable abnormality. This patient's information was entered into a reminder system with a target due date for their next mammogram. Electronically signed by: Irvin Hammonds MD 07/03/2025 04:20 PM EDT Dictated By: Irvin Hammonds MD Signed By: <Electronically signed by Irvin Hammonds MD in OV> 07/03/25 1620 DD/ 1310 TD/TT: 06/29/25 1327 Head Sugar Reprocess Operator: Procedure Note Donotuseinterpreter, Image - 07/03/2025 [facility] [address] [place] [address] Mammography Report Signed Patient: Sapna Juan IMR#: [id number] : 1965Acct:[id number] Age/Sex: 60 / FADM Date: 06/29/25 Loc: HO.MAMMO Attending Dr: Sara Gautam NP Ordering Physician: SARA GAUTAM NPResults: 1Negative Date of Service: 06/29/25Follow Up: 1 Year From Orig inal Mammogram Procedure(s): MM tomosynthesis screening BI Accession Number(s): [id number] cc: SARA GAUTAM NP Reason For Exam: Z12.31 EXAMINATION: MM SCREENING DIGITAL BREAST TOMOSYNTHESIS, BILATERAL CLINICAL INFORMATION: Screening. Asymptomatic. COMPARISON: Comparison made to multiple prior, most recent January 13, 2024, and most remote May 26, 2017. TECHNIQUE: Digital breast tomosynthesis is performed in mediolateral oblique and craniocaudal views along with computer-aided detection (CAD). Synthesized 2D images are generated from the tomosynthesis. FINDINGS: BREAST COMPOSITION: There are scattered areas of fibroglandular density. BILATERAL BREASTS: No significant masses, suspicious calcifications or other abnormalities are seen in either breast. MM/MM tomosynthesis screening BI IMPRESSION: BILATERAL BREASTS: Negative, no mammographic evidence of malignancy. Normal interval follow-up is recommended in 12 months. ASSESSMENT: BI-RADS: Category 1: Negative RECOMMENDATION: Routine annual mammography screening. FOLLOW-UP: 1 year F/U This examination should not preclude the clinical evaluation of a suspicious palpable abnormality. This patient's information was entered into a reminder system with a target due date for their next mammogram. Electronically signed by: Irvin Hammonds MD 07/03/2025 04:20 PM EDT Dictated By: Irvin Hammonds MD Signed By: <Electronically signed by Irvin Hammonds MD in OV> 07/03/25 1620 DD/ 1310 TD/TT: 06/29/25 1327 Head Sugar Reprocess Operator: [facility] BI PROCEDURES Edited Result - Final * Cologuard?? colon cancer screening (05/03/2025 10:00 AM EDT) Cologuard Result Negative Negative 05/09/20 5:20 AM EDT [email or web address] (CLIA #:[id number]) Comment: The Cologuard (TM) test was performed [...] screened with both Cologuard and colonoscopy. (Miguel Ramirez. et al, N Engl J Med 2014;370(14):1286- 1297) The normal value (reference range) for this assay is negative. COLOGUARD RE-SCREENING RECOMMENDATION: Periodic colorectal cancer screening is an important part of preventive healthcare for asymptomatic individuals at average risk for colorectal cancer. Following a negative Cologuard result, the [employer] and U.S. Multi-Society Task Force screening guidelines recommend a Cologuard re-screening interval of 3 years. References: [employer] Guideline for Colorectal Cancer Screening: https://www.cancer.org/cancer/lzdkq-fobwch-julezn/doabhqmqn-nsuhdcjev-ytgflsn/ac s-rec ommendations.html.; Gregor BA, Nba SANABRIA, Cheko ZAIDI, Colorectal Cancer Screening: Recommendations for Physicians and Patients from the U.S. Multi-Society Task Force on Colorectal Cancer Screening , Am J Gastroenterology 2017; 112:6128-2540. TEST DESCRIPTION: Composite algorithmic analysis of stool [...] screened with both Cologuard and colonoscopy. (Miguel Ramirez. et al, N Engl J Med 2014;370(14):9131-5828.) Cologuard may produce a false negative or false positive result (no colorectal cancer or precancerous polyp present at colonoscopy follow up). A negative Cologuard test result does not guarantee the absence of CRC or advanced adenoma (pre-cancer). The current Cologuard screening interval is every 3 years. ([employer] and U.S. Multi-Society Task Force). Cologuard performance data in a 10,000 patient pivotal study using colonoscopy as the reference method can be accessed at the following location: www.[employer]./results. Additional description of the Cologuard test process, warnings and precautions can be found at www.cologuard.com. Stool specimen (specimen) 05/03/2025 10:00 AM EDT 05/05/2025 1:59 PM EDT us Sara Gautam ANP LAB MOLECULAR DIAGNOSTICS ORDERA BLES Final Result [email or web address] (CLIA #:[id number]) [address] [place] [address], * (ABNORMAL) Lipid Panel, Standard (05/02/2025 9:45 AM EDT) Triglycerides 347(H) <150 mg/dL [facility] Comment:Desirable Triglyceri de: less than 150 mg/dLBorderline High Triglyceride 150-199 mg/dLHigh Triglyceride: 200-499 mg/dLVery High Triglyceride: greater than or equal to 5OO mg/dL Cholesterol 227(H) <200 mg/dL [facility] Comment:Desirable Cholestero l: less than 200 mg/dLBorderline High Cholesterol: 200-239 mg/dLHigh Cholesterol: greater than 239 mg/dL LDL Cholesterol Calculated 118(H) <100 mg/dL [facility] Comment:Desirable LDL: less than 100 mg/dLNear Optimal/Above Optimal LDL: 110- 129 mg/dLBorderline High LDL: 130-159 mg/dLHigh LDL: 160-189 mg/dLVery High LDL: greater than or equal to 190 mg/dL HDL Cholesterol 40(L) >40 mg/dL [facility] Comment:Desirable HDL: great er than 40 mg/dL Note: This HDL assay may give artificially low results in patients with liver disease. Blood Venous blood specimen / Unknown 05/02/2025 9:45 AM EDT 05/02/2025 11:25 AM EDT Sara Gautam ANP LAB BLOOD ORDERABLES Final Resul t [facility] [address] [place] [phone] * (ABNORMAL) POCT HGB A1C (03/28/2025 12:01 PM EDT) Hemoglobin A1C 6.1(A) 4.0 - 5.7 % QC Media Lot # [id number] Lot# Expiration Date Blood 03/28/2025 12:0 1 PM EDT us Sara Gautam [facility] POINT OF CARE TEST ENTER/EDIT OR DERABLES Final Result * Albumin, Random Urine W/Creatinine (09/17/2024 11:06 AM EST) Creatinine, Urine 81.38 mg/dL [facility] Microalbumin Urine 11.0 mg/L [facility] Microalbum Creatinine Ratio Ur 13.5 <30 ug/mg cr [facility] Comment:Albumin/Creatinine R atio Reference Ranges: Normal: < 30 ug/mg creatinine Microalbuminuria: 30 - 300 ug/mg creatinineClinical Albuminuria: > 300 ug/mg creatinine Urine (Urine, Random) 09/17/2024 11:06 AM EST 09/17/2024 12:58 PM EST us Sara Gautam [facility] LAB URINE ORDERABLES Final Resul t [facility] [address] [place] [phone] * HPV mRNA E6/E7 w/Reflex to HPV Genotypes 16, 18/45 (08/04/2023 10:37 AM EST) HPV nRNA E6/E7 Not Detected Not Detected [facility] Comment:Methodology: Transcr iption-Mediated AmplificationThis assay detects E6/E7 viral messenger RNA (mRNA) from 14high-risk HPV types (16,18,31,33,35,39,45,51,52,56,58,59,66,68).Cervical sources are required for HPV testing.If a vaginal source from a patient who has had atotal hysterectomy with removal of cervix wassubmitted, please contact the testing laboratoryfor alternative testing options.For additional information, please refer tohttp://education.[employer]/faq/RGY062c7(This link if provided for information/educational purposes only.)THIS TEST WAS PERFORMED AT:[employer] [place] [phone] STILES MD HPV mRNA E6/E7 TNP [facility] HPV 16 RNA TNP [facility] HPV 18/45 RNA TNP [facility] 08/04/2023 10:3 7 AM EST 08/05/2023 11:40 AM EST Kelly Hidalgo CNM LAB CYTOLOGY ORDERABLES F inal Result [facility] [address] [place] [phone] * Pap Smear (08/04/2023 10:37 AM EST) 08/04/2023 10:3 7 AM EST 08/05/2023 11:40 AM EST Oriana [facility] - 08/14/2023 4:13 PM EST ----- ------- Name: Sapna Juan I Age/Sex: 58/F : 1965 Unit#: [id number] Attend Dr: KELLY HIDALGO CNM Re08/04/23 Status: DEP [facility]F [facility] Disch: ----- ------- SPEC : [id number] RECD: 08/05/23 STATUS: DEJON PICKARD NUM: [id number] JOHAN: 08/04/23-[address] [facility] [address]: KELLY HIDALGO CNM ENTERED: 08/05/23 SP TYPE: Pap Smr OT DR: ORDERED: Pap Smear Interpretation Satisfactory for evaluation. Mild inflammation. Negative for intraepithelial lesion or malignancy. HPV mRNA E6/E7: NOT DETECTED This assay detects E6/E7 viral messenger RNA (mRNA) from 14 high-risk HPV types (16, 18, 31, 33, 35, 39, 45, 51, 52, 56, 58, 59, 66, 68) HPV testing performed by [facility], [place], [place]. See reference laboratory portion of the EMR for entire report. Clinical Information LMP: Postmenopausal Previous PAP test: WNL Material Received ThinPrep-Cervical ----- ------- Signed (signature on file) NICK Sena (ASCP) 08/14/23 1613 ----- ------- END OF REPORT us Kelly Hidalgo CNM LAB CYTOLOGY ORDERABLES F inal Result [facility] [address] [place] [phone] * Hm Colonoscopy (02/06/2022) Colonoscopy Normal Normal Historical Provider HEALTH MAINTENANCE Final Result * HEPATITIS C AB W/REFL TO HCV RNA, QN, PCR (04/24/2021 10:45 AM EDT) HEPATITIS C ANTIBODY NON-REACT SHANITA NON-REACT SHANITA [facility] INDEX 0.03 <1.00 [facility] Comment: HCV antibody was non-reactive. There is no laboratory evidence of HCV infection. In most cases, no further action is required. However, if recent HCV exposure is suspected, a test for HCV RNA (test code 89991) is suggested. For additional information please refer to http://education.[employer]/faq/LSF00f5 (This link is being provided for informational/ educational purposes only.) 04/24/2021 10:4 5 AM EDT Chely Null MD HISTORICAL/NON ORDERA BLE LABS Final Result [facility] [address] * HIV 1/2 ANTIGEN/ANTIBODY,FOURTH GENERATION W/RFL (04/24/2021 10:45 AM EDT) HIV-1/2 ANTIGEN AND ANTIBODIES, 4TH GENERATION W/ REFLEX NON-REACT SHANITA NON-REACT [facility] Comment: HIV-1 antigen and HIV-1/HIV-2 [...] purpose. For additional information please refer to http://education.[employer]/faq/MFG656 (This link is being provided for informational/ educational purposes only.) The performance of this assay has not been clinically validated in patients less than 2 years old. 04/24/2021 10:4 5 AM EDT Chely Null MD LAB BLOOD ORDERABLES Final Result [facility] [address] from Last 3 Months or Most Recently Relevant to Health Maintenance [place] [address] C3 [facility] MEDICAID STAND ADULT Care Teams Insulation Professional Relationship Specialty Start Date End Date Sara Gautam ANP [address] [place] [phone] PCP - General Family Medicine 04/30/21
--- OUTSIDE RECORDS SUMMARY | 2025-09-06 19:16 | XMS_ITS | Encounter Summary ---
Author Organization [employer] Address [address] [facility] 7t [place] [address] Care Team Providers Care Training Development Manager Name Role Phone Sandra Currie Primary Care Provider Reason for Visit * Reason Onset Date Comments pt1 03/01/2025 Encounter Details Date Type Department Care Team ([facility] st Contact Info) Description 03/01/[address] [facility] MEDICINE [address] [place], [place] [phone] Sandra Currei ANP [address] [place], [place] [phone] pt1 Social History Tobacco Use Types Packs/Day [...] with others, in a hotel, in a chcf, living outside on the street, on a [...] Description 09/13/2025 10:15 AM EST Office Visit [address] [address] Suzanne Carbone, CECY [address] [place] [phone] 11/03/2025 2:00 PM EST Office Visit [address] [address] Sandra Currie ANP [address] [place] [phone] documented as of this encounter Visit Diagnoses Not on filedocumented in this encounter Additional Health Concerns Assessment Noted Time PHQ-9 Depression Total Score: 5 09/17/19 25 11:23 AM EST documented as of this encounter Care Teams Training Development Manager Relationship Specialty Start Date End Date Sandra Currie ANP [address] [place] [phone] PCP - General Family Medicine 04/30/21 documented as of this encounter
--- OUTSIDE RECORDS SUMMARY | 2025-09-06 19:16 | XMS_ITS | Encounter Summary ---
Author Organization [employer] Address [address] [facility] [address] [place] [address] Care Team Providers Care Wedding Makeup Artist Name Role Phone Sandra Currie Primary Care Provider [phone] Encounter Details Date Type Department Care Team ([facility] Contact Info) Description 03/17/2023 Orders Only [facility] [address] [place], [place] [id number] Susannah Burnett LPN Social History Tobacco Use [...] Department Care Team (Late Contact Info) Description 09/13/2025 10:15 AM EST Office Visit [facility] [address] [place] [address] Suzanne Carbone CNM [address] [place] [address] 11/03/2025 2:00 PM EST Office Visit [facility] [address] [place] [address] Sandra Currie ANP [address] [place] [address] documented as of this encounter Visit Diagnoses Not on filedocumented in this encounter Care Teams Wedding Makeup Artist Relationship Specialty Start Date End Date Sandra Currie ANP [address] [place] [address] PCP - General Family Medicine 04/30/21 documented as of this encounter
--- OUTSIDE RECORDS SUMMARY | 2025-09-06 19:16 | XMS_ITS | Encounter Summary ---
Author Organization [employer] Address [address] [facility] [address] [place] [address] Care Team Providers Care Assistant Professor Of Radiology Name Role Phone Sandra Currie Primary Care Provider [phone] Encounter Details Date Type Department Care Team (Late st Contact Info) Description 11/15/2022 Orders Only [facility] MEDICINE [address] [place] [id number] Shikha Louis LPN Social History Tobacco Use [...] Description 09/13/2025 10:15 AM EST Office Visit [facility] MED[facility] [address] [place] [phone] Suzanne Carbone CNM [address] [place] [phone] 11/03/2025 2:00 PM EST Office Visit [address] [address] Sandra Currie ANP [address] [place] [phone] documented as of this encounter Visit Diagnoses Not on filedocumented in this encounter Care Teams Assistant Professor Of Radiology Relationship Specialty Start Date End Date Sandra Currie ANP [address] [place] [address] PCP - General Family Medicine 04/30/21 documented as of this encounter
[2025-09-06 23:01] LABS: CT PCR NOT DETECTED (Not Detect.); NG PCR NOT DETECTED (Not Detect.)
== END 2025-09-06 17:50 | disposition home or self-care (01) ==
LOC: HO.HHCLNP 17:49
PROVIDERS: Visit Provider Nurse Practitioner Family
DX: R30.0 Dysuria (principal); Z20.2 Contact with and (suspected) exposure to infections with a predominantly sexual mode of transmission
CPT/HCPCS: 87086; 87147; 87491; 87591